=== PATIENT | male | born 1980 | race Caucasian/White ===

== ENCOUNTER → 2018-05-02 17:43 | Outpatient (CLI) | payer MEDICARE, SELFPAY ==
--- NOTE | 2018-05-02 17:57 | RAD_ITS ---
STUDY: X-RAY - LUMBAR SPINE REASON FOR EXAM: Male, 37 years old. Evaluate spinal stimulator. TECHNIQUE: 3 view(s) of the lumbar spine were obtained. COMPARISON: None FINDINGS: Normal lumbar lordosis. There is no substantial scoliosis. There is a normal alignment of the vertebrae. Normal vertebral bodies and endplates. Normal disc space heights. There is no demonstrated fracture. An epidural stimulator is seen terminating in the lower thoracic spine. No discontinuities of the leads. The soft tissue structures are unremarkable. RAD/Lumbar Spine 2 or 3 Views IMPRESSION: Normal x-ray examination of the lumbar spine. Epidural stimulator as described. Electronically Signed: Adrien Wells MD at 21:03 EDT , Service support ,
== END ==
PROVIDERS: Family Provider Family Medicine; PCP Family Medicine; Visit Provider Anesthesiology Pain Medicine
DX: M54.9 Dorsalgia, unspecified (principal); Z96.9 Presence of functional implant, unspecified
CPT/HCPCS: 72100

== ENCOUNTER → 2019-01-26 12:55 | Outpatient (CLI) | payer MEDICARE, MEDICAID, SELFPAY ==
--- NOTE | 2019-01-26 12:57 | RAD_ITS ---
STUDY: X-RAY - LEFT SHOULDER REASON FOR EXAM: Male, 38 years old. Pain. TECHNIQUE: 3 view(s) of the shoulder. COMPARISON: None. FINDINGS: Normal glenohumeral articulation. Normal acromioclavicular joint. Normal acromion. Normal humeral head and visualized proximal humerus. The soft tissue structures are unremarkable. Normal visualized pulmonary apex. RAD/Shoulder min 2 Views IMPRESSION: Normal x-ray examination of the shoulder. Electronically Signed: Shmuel Avila MD at 16:18 EDT , Service support ,
--- NOTE | 2019-01-26 12:57 | RAD_ITS ---
STUDY: X-RAY - LEFT ELBOW REASON FOR EXAM: Male, 38 years old. Joint pain, unable to move arm TECHNIQUE: 3 view(s) of the elbow. Exam limited due to patient mobility factors. COMPARISON: None. FINDINGS: Normal visualized humerus, radius and ulna. Normal radiocapitellar and ulnotrochlear articulations. The soft tissue structures are unremarkable. RAD/Elbow min 3 Views IMPRESSION: No fracture or malalignment. Electronically Signed: Franck Smith MD at 12:59 EDT , Service support ,
== END ==
PROVIDERS: Family Provider Family Medicine; PCP Family Medicine; Referring Provider Orthopaedic Surgery; Visit Provider Orthopaedic Surgery
DX: R52 Pain, unspecified (principal)
CPT/HCPCS: 73030; 73080

== ENCOUNTER 2019-02-28 12:31 | Emergency (ER) | payer MEDICARE, MEDICAID, SELFPAY ==
[2019-02-28 12:32] VITALS: PULSE 67; RESP 16; TEMP 36.9; O2SAT 97; BMI 33.1
--- NOTE | 2019-02-28 12:36 | RAD_ITS ---
STUDY: X-RAY CHEST REASON FOR EXAM: Male, 38 years old. Chest pain. TECHNIQUE: Single AP portable view of the chest. COMPARISON: None. FINDINGS: EKG electrodes are seen. Electrodes from a TENS unit are seen at the T6-T7 level. The lungs are clear and expanded. There is no demonstrated pleural abnormality. Normal size heart. Normal mediastinum and rodrigo. Normal visualized pulmonary arteries. Normal visualized aortic arch and descending thoracic aorta. Normal visualized thoracic spine. Normal visualized ribs, clavicles, and shoulders. There is no demonstrated abnormality of the visualized soft tissue structures of the upper abdomen. RAD/Chest 1 View (Portable) IMPRESSION: No acute abnormality is seen. Electronically Signed: Luke Goncalves, at 13:44 EDT , Service support ,
--- NOTE | 2019-02-28 12:48 | EKG12_ITS ---
Test Reason : CP Blood Pressure : / mmHG Vent. Rate : 072 BPM Atrial Rate : 072 BPM P-R Int : 146 ms QRS Dur : 108 ms QT Int : 410 ms P-R-T Axes : 048 -03 041 degrees QTc Int : 448 ms Normal sinus rhythm Poor R-Wave Progression Confirmed by ERNIE SILVA, JEREMIAS ([id number]), assignment desk editor VALENTINA ALONZO ([id number]) on 03/02/2019 1:28:02 PM Referred By: Alvin Rhodes Confirmed By:JEREMIAS KLEIN MD
[2019-02-28 13:01] LABS: Absolute Lymphocyte Count 2.58 X10^3/ul (0.83-4.51); Absolute Neutrophil Count 8.9 X10^3/uL (2.0-7.7); Basophil# 0.04 X10^3/uL; Basophil% 0.3 % (0-1); Eosinophil# 0.06 X10^3/uL; Eosinophils% 0.5 % (0-5); Hematocrit 51.6 % (40-54); Hemoglobin 17.6 g/dl (13.0-16.5); Lymphocyte # 2.58 X10^3/ul (4.0); Lymphocyte % 20.2 % (19-41); Mean Corp Hgb Conc 34.1 g/gl (32-36); Mean Corpuscular Hgb 31.4 pg (27.0-32.0); Mean Corpuscular Volume 92.1 fL (80-94); Monocyte# 0.86 X10^3/uL; Monocyte% 6.7 % (0-10); Neutrophil # 8.91 X10^3/uL (2.7-7.7); Neutrophil % 69.6 % (47-70); Platelet Count 254 K/mm3 (150-450); RBC Distribution Width CV 13.2 % (11.6-14.6); RBC Distribution Width SD 44.2 fl (35.1-43.9); White Blood Count 12.8 K/mm3 (4.4-11.0)
[2019-02-28 13:02] LABS: POSITIVE COUNT YES; POSITIVE DIFFERENTIAL NO; POSITIVE MORPHOLOGY YES
[2019-02-28 13:17] LABS: Anion Gap 7 (5-15); BUN 15 mg/dL (7-18); BUN/Creat Ratio 16.4 RATIO (10-20); Chloride 110 mmol/L (98-107); Creatinine, Serum 0.91 mg/dL (0.70-1.30); EST Glomerular Filtration Rate 98 mL/min (>60); Est Glom Filt Rate - Afr Amer 119 mL/min (>60); Estimated Creatinine Clearance 123.17 ml/min; Glucose 95 mg/dL (74-106); Potassium 3.5 mmol/L (3.5-5.1); Sodium Level 141 mmol/L (136-145)
[2019-02-28] MEDS: Acetaminophen 500 MG Tablet 1000 MG PO (13:17)
[2019-02-28] MEDS: 0.9% Normal Saline 1,000 ML 1000 ML IV (13:17)
[2019-02-28 13:28] VITALS: BP 119/79; PULSE 66; RESP 16; O2SAT 96
--- NOTE | 2019-02-28 13:50 | ED.DCSUM_ITS ---
- ER Visit Summary Date of Service: 02/28/19 Chief Complaint: Chest pain History of Present Illness: The patient is a [address] Astorga. Reports he has left-sided chest pain began 3 days ago.'s an aching continuous pain is 10-10 at worst 9-10 currently. Is worsened by nothing including exertion, movement, or breathing. Is also relieved by nothing. He denies any associated nausea, vomiting, diaphoresis, shortness of breath. Patient reports that he was in [facility] emergency department 3 days ago and had a positive d- dimer. CT of his chest that was negative. Patient denies any fever or chills. He has had a nonproductive cough for the past 2 weeks. Physical Examination: Vitals: Stable. Afebrile. General: Well-nourished and well-developed. Head: Normocephalic atraumatic. Neck: Supple, no lymphadenopathy. No JVD. Nontender. Cardiovascular: Regular rate and rhythm. No murmurs. Respiratory: No respiratory distress. Clear to auscultation bilaterally. Chest is nontender. Abdominal: Soft, nontender, nondistended, normal bowel sounds. No guarding, rebound, or peritoneal signs. Back: Nontender. Extremities: Nontender, no edema. Skin: Normal color, no rash. Neurologic: Alert and oriented ?3. Cranial nerves II through XII are intact. Normal strength and sensation. Psych: Normal affect. Test Results: EKG is sinus at [address] changes. There is no old EKG for comparison. Troponin is negative despite 2 days of constant pain. Chem-7 is more for chloride of 110. CBC shows a white count of 12.8 with a hemoglobin of 17.6. Chest x-ray shows no acute disease. Emergency Department Course and Treatment: We did get the records from his visit [address] of his chest was negative. He is resting comfortably. He refused pain medications. Treatment Plan: Patient will be discharged with symptomatic care for his URI. Instructed to follow-up his primary care physician in 1 week if not improving. Return to the emergency department for any worsening symptoms. Disposition: To home in improved and stable condition. Impression: 1. URI. 2. Atypical chest pain. This note was generated with [employer] software. It may contain incorrect words, spelling, and punctuation that were not noted in review of the chart prior to signing ED Disposition - Plan for ED Patient: Disposition: Home or Assisted Living Instructions: ED Upper Resp Infec No Abx Tx, ED Chest Pain Atypical Unkn Cause Referrals: Felicia Pendleton [Primary Care Provider] - 1 Week if not improving
[2019-02-28 13:55] VITALS: BP 121/81; PULSE 68; RESP 16; O2SAT 98
[2019-03-02 09:07] LABS: Pathologist Review Reviewed
== END 2019-02-28 14:05 | disposition home or self-care (01) ==
LOC: ED 13:03
PROVIDERS: Emergency Provider Emergency Medicine; Family Provider Family Medicine; PCP Family Medicine
DX: J06.9 Acute upper respiratory infection, unspecified (principal); R07.89 Other chest pain; I10 Essential (primary) hypertension; E78.00 Pure hypercholesterolemia, unspecified; Z86.73 Personal history of transient ischemic attack (TIA), and cerebral infarction without residual deficits; Z79.82 Long term (current) use of aspirin; Z79.899 Other long term (current) drug therapy; M54.2 Cervicalgia
CPT/HCPCS: 71045; 72040; 80048; 84484; 85025; 93005; 96360; 99285; J7030; A4216

== ENCOUNTER → 2019-02-28 | Outpatient (CLI) | payer MEDICARE, MEDICAID, SELFPAY ==
--- NOTE | 2019-02-28 12:04 | RAD_ITS ---
STUDY: X-RAY - CERVICAL SPINE REASON FOR EXAM: Rudimentary bilateral cervical ribs., 38 years old. Neck pain and burning sensation left side of neck. History of prior stroke. TECHNIQUE: 3 view(s) of the cervical spine were obtained. COMPARISON: None FINDINGS: Normal anterior atlantoaxial articulation. Normal odontoid process. Normal cervical lordosis. Normal vertebral bodies and endplates. Normal disc space heights. Normal visualized intervertebral neuroforamina. Rudimentary bilateral cervical ribs. The soft tissue structures are unremarkable. RAD/Cerv Spine 2 or 3 Views IMPRESSION: Normal x-ray examination of the visualized cervical spine. Rudimentary bilateral cervical ribs. Electronically Signed: Rahul Rosen MD at 7:40 EDT , Service support ,
== END | disposition home or self-care (01) ==
PROVIDERS: Family Provider Family Medicine; PCP Family Medicine; Referring Provider Anesthesiology Pain Medicine; Visit Provider Anesthesiology Pain Medicine
DX: M54.2 Cervicalgia (principal)
CPT/HCPCS: 72040

== ENCOUNTER → 2019-09-06 14:09 | Outpatient (CLI) | payer MEDICARE, MEDICAID, SELFPAY ==
--- NOTE | 2019-09-06 14:14 | RAD_ITS ---
STUDY: X-RAY - CERVICAL SPINE REASON FOR EXAM: Male, 38 years old. TECHNIQUE: 6 view(s) of the cervical spine were obtained. COMPARISON: None FINDINGS: Normal anterior atlantoaxial articulation. Normal odontoid process. Normal cervical lordosis. Normal vertebral bodies and endplates. Normal disc space heights. Normal visualized intervertebral neuroforamina. The soft tissue structures are unremarkable. RAD/Cerv Spine 2 or 3 Views IMPRESSION: Normal x-ray examination of the visualized cervical spine. Electronically Signed: Tati Mejia, at 16:24 EST Tel , Service support ,
== END ==
PROVIDERS: Family Provider Family Medicine; PCP Family Medicine; Referring Provider Anesthesiology Pain Medicine; Visit Provider Anesthesiology Pain Medicine
DX: M54.2 Cervicalgia (principal)
CPT/HCPCS: 72040

== ENCOUNTER → 2019-12-14 10:02 | Outpatient (CLI) | payer MEDICARE, MEDICAID, SELFPAY ==
[2019-12-14 09:52] VITALS: BMI 33.1
--- NOTE | 2019-12-14 10:03 | RAD_ITS ---
HISTORY: shoulder pain, possible rotator cuff injury, patient has had a stroke Exam:Left Shoulder COMPARISON: None FINDINGS: # of images incl. paperwork: 3 XR Shoulder Min 2 Views: The humeral head is well-positioned within the glenoid fossa. No fracture or subluxation. The acromioclavicular joint is slight elevation of the clavicle relative to the acromion was present on the previous study as well. The coracoid clavicular distance remains normal. Epidural stimulation leads remain.. The adjacent chest is unremarkable. RAD/Shoulder min 2 Views IMPRESSION: No evidence of acute injury to the left shoulder. at 0544 Reported and signed by: Mil Mehta MD Electronically Signed: Mil Mehta MD at 5:43 EST Tel , Service support ,
== END ==
PROVIDERS: PCP Family Medicine; Referring Provider Physician Assistant; Visit Provider Physician Assistant
DX: M25.612 Stiffness of left shoulder, not elsewhere classified (principal)
CPT/HCPCS: 73030

== ENCOUNTER → 2019-12-29 08:43 | Outpatient (CLI) | payer MEDICARE, MEDICAID, SELFPAY ==
[2019-12-14 09:52] VITALS: BMI 33.1
--- NOTE | 2019-12-29 08:44 | MRI_ITS ---
STUDY: MRI LEFT SHOULDER REASON FOR EXAM: Male, 39 years old. frequent falls onto shoulder decreased rom TECHNIQUE: Standardized fat and water weighted pulse sequences were obtained in all 3 orthogonal planes. COMPARISON: X-ray 12/14/2019 FINDINGS: Normal supraspinatus tendon. Normal infraspinatus tendon. Normal subscapularis tendon. Normal teres minor tendon. Normal supraspinatus muscle. Normal infraspinatus muscle. Normal subscapularis muscle. Normal teres minor muscle. Normal glenohumeral articulation. Normal humeral head and visualized proximal humerus. Normal biceps labral complex. Normal intracapsular long biceps tendon. Normal labrum. Normal capsulo- ligamentous complex. Normal rotator interval. Normal acromioclavicular articulation. There is a Type II morphology (curved), with a neutral orientation. There is no subacromial-subdeltoid bursal fluid. There is thickening of the coracohumeral ligament with low-signal material partially effacing the subcoracoid fat triangle, compatible with adhesive capsulitis in the rotator cuff interval. Normal quadrilateral space. Normal axillary space. Normal deltoid muscle. Normal trapezius muscle. MRI/Upper Ext Joint Only(Routine) IMPRESSION: Suspect clinical adhesive capsulitis. Electronically Signed: Daniel Snyder MD at 13:15 EDT Tel , Service support ,
== END ==
PROVIDERS: PCP Family Medicine; Referring Provider Physician Assistant; Visit Provider Physician Assistant
DX: M75.02 Adhesive capsulitis of left shoulder (principal); M25.512 Pain in left shoulder
CPT/HCPCS: 73221

== ENCOUNTER 2020-04-11 10:12 | Day surgery (SDC) | payer MEDICARE, MEDICAID, SELFPAY ==
[2020-03-11 09:26] VITALS: BMI 33.1
[2020-04-11 10:34] VITALS: BP 117/78; PULSE 66; RESP 16; TEMP 36.7; O2SAT 97; BMI 32.6
[2020-04-11] MEDS: Lactated Ringers 1,000 ML 100 ML IV ×2 (10:55→14:01)
[2020-04-11] MEDS: Cefazolin 2 GM in 0.9% Normal Saline 100 ML IV (12:41)
--- NOTE | 2020-04-11 12:54 | DCINST_ITS ---
Discharge Diet: No Restrictions - May remove dressings in 4 days and apply Band- Aids to incision sites, may remove sling to do pendulum exercises as much as possible, stop sling when comfortable, may get incision wet in shower after 4 days, follow-up in 2 weeks or sooner if other issues arise, resume PT raymond Discharge Activity: May Not Drive May shower in (days): 1 Ice area for (Minutes): 20 - Every hour while awake. Weight Bearing Status: Weight bearing as tolerated Keep extremity elevated above heart level: Operative Extremity Call your doctor if your incision/area has: Continuous Slow Oozing, Sudden In creased Bleeding, Increased Pain/ Swelling, Increased Redness, Foul Smelling Discharge Call your doctor if you observe: Fever of 101 or Higher, Coldness, Increased Pain, Numbness or Tingling, Change in Color, Calf discomfort Allergies/Adverse Reactions: Allergies lithium Allergy (Verified 04/03/20 11:47) Swelling Medications to take at Discharge Aspirin [Aspirin, Baby] 81 mg PO DAILY@0800 02/28/19 Atorvastatin Calcium 10 mg PO DAILY 02/28/19 Cetirizine HCl [Zyrtec] 10 mg PO DAILY 02/28/19 Gabapentin [Neurontin] 300 mg PO TID 02/28/19 Imitrex 50 mg PO PRN PRN 02/28/19 Lisinopril [Zestril] 10 mg PO DAILY 02/28/19 Pantoprazole Sodium [Protonix] 40 mg PO BID 02/28/19 Tizanidine HCl 4 mg PO 4X/DAY 02/28/19 Topiramate 100 mg PO BID 02/28/19 Verapamil HCl [Verapamil Sr] 120 mg PO DAILY 02/28/19 linaclotide 145 mcg capsule 145 mcg PO DAILY 12/14/19 hydrochlorothiazide 25 mg tablet 25 mg PO DAILY 03/11/20 Aripiprazole [Abilify] 5 mg PO DAILY 04/03/20 Escitalopram Oxalate [Lexapro] 20 mg PO DAILY 04/03/20 Melatonin 15 mg PO QHS 04/03/20 Oxybutynin [Ditropan] 15 mg PO DAILY 04/03/20 Ranolazine [Ranolazine ER] 500 mg PO BID 04/03/20 Vits A,C,E/Lutein/Minerals [Healthy Eyes Tablet] 1 ea PO DAILY 04/03/20 Oxycodone HCl/Acetaminophen [Percocet 5/325] 1 - 2 tab PO Q6H PRN PRN 5 Days #28 tab 04/11/20 The following prescriptions were given: Oxycodone HCl/Acetaminophen [Percocet 5/325] 1 - 2 tab PO Q6H PRN PRN 5 Days #28 tab PRN Reason: Pain Transmission Status: Received by [employer] [id number] Primary Care Physician: Felicia Pendlteon MD [Primary Care Provider] - Test Results: Test results from this visit will be discussed in further detail at your follow- up appointment, if applicable. Please Follow Up With: Magnolia Giles, DO - [phone]
--- NOTE | 2020-04-11 12:54 | PCM.OPRPT ---
Report of Operation Date of Procedure: 04/10/20 Pre-Operative Diagnosis: LEFT SHOULDER FROZEN SHOULDER, SUBACROMIAL IMPINGMENT SYNDROME Post-Operative Diagnosis: SAME Surgery/Procedure Performed:: Left shoulder manipulation under anesthesia, extensive synovectomy, adhesion release intra-articularly, biceps tenotomy, subacromial decompression acromioplasty analytical tech: Branden Larson Type of Anesthesia:: General/Regional Anesthesiologist: John Stokes Estimated Blood Loss (mL): min Fluids Replaced: 700CC LR Description of Procedure: Preop note Patient is a 39-year-old male long-term known to our clinic patient has a had a stroke on the left side and is having increasing functional inability to raise his left arm recalcitrant to nonoperative treatment options. MRI confirms frozen shoulder. We discussed risk benefits and alternatives surgery surgery excuse me. Risk include but not limited to blood loss, blood clot, infection, neurovascular, failure procedure, loss of life and loss of limb. Patient is aware and like to proceed with left shoulder manipulation under anesthesia lysis of adhesions biceps tenotomy subacromial decompression acromioplasty. Operative note Patient seen and examined preoperative holding area. Left shoulder was marked. We evaluated the patient ROM after anesthesia initiated. Flexion prior to SREE was 90, after 130Patient received a preop regional block. Patient brought to the operating room placed supine on the operating table. Signed, anesthesia, antibiotics were administered. Performed a timeout. We then manipulated the left shoulder under after under standard technique there is audible cracking signs in all planes. We then placed patient in beachchair positioning [facility] through beachchair position we did recheck his blood pressure which was stable throughout. We then prepped and draped the left arm in standard technique. Marked out our bony landmarks for portal placement. We then insufflated the glenohumeral joint for the posterior aspect. We had good return. We created a posterior portal with an 11 blade. Begin our diagnostic arthroscopy. He had adhesions throughout anteriorly these were released with combination of a shaver and ablator we released open up his rotator interval. We also release his biceps tendon as he was having was considerable biceps tendinitis time preoperatively so we did release his biceps tendon at the same time. His rotator cuff was intact he had obvious inferior capsular scar tissue as well. We inserted a shaver and also resected back some synovitis some of the scar tissue posteriorly as well. And he had some scar tissue adherent to his humeral head which was released as well. We then irrigate the shoulder with copious amounts of sterile saline coagulate any bleeders we did encounter. The moved to the subacromial space. Created a lateral portal under direct visualization. There was extensive bursitis throughout. We resected this back with a combination of a shaver and ablator. He had a bump on the acromion which was shaved back to and we co-plane the lateral aspect of the anterolateral aspect of the acromion with a ethan. We again resected the entire bursa and extending to the posterior recess. Irrigated the subacromial space with copious amounts of sterile saline. Sterile dressings were applied after the portals were closed with interrupted 4-0 nylon stitches. Patient tolerated the procedure well no complications transferred recovery room in stable condition Postoperative note Use arm as tolerated Patient has physical therapy appointment on Wednesday discussed with dad need to do PT discussed that we will give images to patient in 2 weeks Call with increased pain numbness tingling or further issues arise Pain medication at Hospital pharmacy Dragon disclaimer this note was generated with [employer] dictation software. It may contain incorrect words, spelling, and punctuation that were not noted in checking the note before signing.
--- NOTE | 2020-04-11 12:55 | PCM.HP.BLA ---
History and Physical I have re-examined the patient. There are no clinical changes since date of exam. Intake Intake Visit Reasons: Left shoulder Is patient in pain?: Yes Allergies lithium Allergy (Verified 02/28/19 12:37) Swelling Medications Aspirin [Aspirin, Baby] 81 mg PO DAILY@0800 02/28/19 [History Confirmed 03/11/20] Atorvastatin Calcium 10 mg PO DAILY 02/28/19 [History Confirmed 03/11/20] Cetirizine HCl [Zyrtec] 10 mg PO DAILY 02/28/19 [History Confirmed 03/11/20] Gabapentin [Neurontin] 300 mg PO BID 02/28/19 [History Confirmed 03/11/20] Imitrex 50 mg PO PRN PRN 02/28/19 [History Confirmed 03/11/20] Lisinopril [Zestril] 10 mg PO DAILY 02/28/19 [History Confirmed 03/11/20] Pantoprazole Sodium [Protonix] 40 mg PO BID 02/28/19 [History Confirmed 03/11/20] Paroxetine HCl 20 mg PO DAILY 02/28/19 [History Confirmed 03/11/20] Tizanidine HCl 4 mg PO 4X/DAY 02/28/19 [History Confirmed 03/11/20] Topiramate 100 mg PO BID 02/28/19 [History Confirmed 03/11/20] Verapamil HCl [Verapamil Sr] 120 mg PO QHS 02/28/19 [History Confirmed 03/11/20] linaclotide 145 mcg capsule 145 mcg PO DAILY 12/14/19 [History Confirmed 03/11/20] hydrochlorothiazide 25 mg tablet PO 03/11/20 [History Confirmed 03/11/20] PFS Social History (Updated 03/11/20 @ 12:54 by NANCY Gongora) Smoking Status: Never smoker HPI Left shoulder: Details: Parts of this documentation were recorded by a scribe, this documentation accurately reflects the service provided and the decisions made by me, NANCY Gongora 03/11/20 [id number]. COOPER CROCKETT is a 39 year old M here today for left shoulder pain and stiffness that has been increasing since his stroke in 2011. he states that he has no active rom, passively he has less than 90 in flexion and abduction. He has no active rom of the left hand or fingers but can passively move the thumb, index and middle fingers. He has completed PT that was helpful at the time. He has an MRI here for review and his last injection was 01/2019. ROS Musc Reports as per HPI, Reports abnormal walking, Reports joint pain, Reports limited joint movement, Reports stiffness Skin/Breast Reports as per HPI Neuro Yes abnormal walking, Yes abnormal movements, Yes abnormal speech, Yes lack of coordination Details: secondary to stroke Ortho Exam Left Shoulder Skin/Wound: No ecchymosis, No erythema, No swelling Testing: Yes Hawkin's, Yes Neer's, No Speed's, Yes TTP Biceps, No TTP AC Joint, No AROM-Forward Elevation 0-180 (approx 90), No AROM-External Rotation at side 0-60 (approx 10 degrees), No Sulcus Sign SHOULDER: No acute abnormalities on inspection of the left shoulder. Patient has some tenderness on the anterior shoulder with palpation. Patient does have evident limited range of motion most notably with internal/external rotation and abduction. He gets approximately 75 to 80 degrees of abduction and only approximately 5 to 10 degrees of external rotation. He is unable to really do any type of internal rotation to even get to the hip. There is evident weakness against resistance as well as some evidence of impingement and biceps involvement. Assessment & Plan Problems 1. Adhesive capsulitis of left shoulder M75.02 2. Biceps tendinitis of left shoulder M75.22 Plan Patient presents to the office with continued left shoulder pain. Patient has had pain/problems of the shoulder for over a year now. Patient has done physical therapy and has had multiple injections into the shoulder. He states that at this time the injections have not really helped the shoulder at all nor did physical therapy. Patient did have an MRI showing some evidence of this of capsulitis. There is also noted fluid around the biceps indicating a tendinopathy. At this time patient has failed conservative treatment with oral anti-inflammatories, injection into the shoulder, as well as physical therapy. He states that he really would like to have this fixed as he was able to get himself dressed and use the shoulder way more and now has difficulties with those things. We did discuss patient's medical history and how that could play a part and complication risks. We discussed risks and benefits of any type of surgical procedure which patient understands. All of his questions as well as his father's questions were answered and consent was signed in office today. I did discuss that we will have to have a further discussion with the surgeon to review his MRI and make sure that surgery is the next best step for him. We will contact him once I have consulted with her in order to set up a date. He will be contacted by surgery department for preanesthesia testing. Patient was given antimicrobial scrub to be used the night before the morning of surgery from the neck into the armpit and down to the fingertips. Patient be notified by surgery the day before his surgery of the time. He can notify our office if he has any further questions or concerns in the meantime. This note was generated with [employer] dictation software. It may contain incorrect words, spelling, and punctuation that were not noted in checking the note before signing. Coding Level of Care Code Off vis,est,level 3 Diagnoses Adhesive capsulitis of left shoulder M75.02 Biceps tendinitis of left shoulder M75.22 Procedure Criteria Procedure Type: Elective COVID Risk Discussion: The surgeon/proceduralist and patient have discussed in detail the risk of exposure to and/or potential harm posed by the COVID-19 virus with having a surgery/procedure at this time versus the risk of delaying the surgery/procedure. It is not possible to know either the risk of delaying the surgery or procedure or chance of getting an infection with perfect accuracy, but a joint decision was made between the patient and the surgeon/proceduralist to proceed at this time with the scheduled surgery/procedure as indicated on the consent form.
[2020-04-11] MEDS: Epinephrine (1 mg/ml) 1 MG/ML VIAL (13:32)
[2020-04-11] MEDS: Mupirocin Ointment 22gm Tube 1 APPLIC (14:00)
[2020-04-11 14:19] VITALS: BP 117/78; BP 141/96; PULSE 100; RESP 16; TEMP 36.6; O2SAT 98
[2020-04-11 14:30] VITALS: BP 117/78; BP 145/93; PULSE 96; RESP 16; O2SAT 95
[2020-04-11 14:45] VITALS: BP 117/78; BP 133/86; PULSE 86; RESP 16; O2SAT 95
[2020-04-11] MEDS: HYDROcodone Bitartrate/Apap 5/325 Tablet PO (14:57)
[2020-04-11 15:00] VITALS: BP 117/78; BP 129/85; PULSE 92; RESP 16; TEMP 36.3; O2SAT 94
[2020-04-11 15:39] VITALS: BP 117/78; BP 133/76; PULSE 84; RESP 16; TEMP 36.5; O2SAT 96
== END 2020-04-11 16:00 | disposition home or self-care (01) ==
LOC: SDC 10:14 → AC 10:15
PROVIDERS: PCP Family Medicine; Referring Provider Orthopaedic Surgery; Visit Provider Orthopaedic Surgery
PROC: (CPT 29827; principal; 2020-04-11 12:40)
DX: M75.02 Adhesive capsulitis of left shoulder (principal); M75.22 Bicipital tendinitis, left shoulder; Z11.59 Encounter for screening for other viral diseases; I10 Essential (primary) hypertension; K21.9 Gastro-esophageal reflux disease without esophagitis; F41.9 Anxiety disorder, unspecified; F32.9 Major depressive disorder, single episode, unspecified; Z86.73 Personal history of transient ischemic attack (TIA), and cerebral infarction without residual deficits; Z87.442 Personal history of urinary calculi; Z79.82 Long term (current) use of aspirin; Z79.899 Other long term (current) drug therapy
CPT/HCPCS: 29823; 29828; 87635; G2023; J7120; J2405; U0003

== ENCOUNTER 2020-05-06 09:30 | Outpatient (RCR) | payer MEDICARE, MEDICAID, SELFPAY ==
--- NOTE | 2020-04-15 10:59 | HP.PTEVAL_ITS ---
Patient's Visit Information COOPER CROCKETT Jr. is a 39 year old M referred to Physical Therapy by Dr. Magnolia Giles DO with a diagnosis of L SHLD ADHESIVE CAPSULITIS AND TENDONITIS. Date of Evaluation: 04/15/20 Physical Therapist: Wilma Sorensen PT, Cert MDT - Visit Plan Frequency: 3x /Week Duration: 6 Weeks Plan: *CHECK SURGICAL SITE FOR SIGNS OF INFECTION*. LEFT UE ROM, STRETCHING AND STRENGTHENING IN COMFORTABLE ROM ONLY. - Subjective Diagnosis: S/P L SHLD SURGERY 04/11/2020: Left shoulder manipulation under anesthesia, extensive synovectomy, adhesion release intra-articularly, biceps tenotomy, subacromial decompression acromioplasty. Work/Leisure: UNEMPLOYEED. Disability: YES. 20+ YEARS. Present symptoms: PATIENT REPORTS SURGERY HAS MADE HIS SHOULDER A LOT BETTER. HE REPORTS SEVERE LEFT SHLD PAIN BEFORE THE S URGERY AND HE DENIES PAIN NOW. HE REPORTS THAT HIS SHOULDER IS A LOT LOOSER NOW AND IT ISN'T STUCK TO HIS BODY LIKE IT WAS BEFORE SURGERY. Present since: PATIENT REPORTS THAT HIS LEFT SHOULDER FROZE UP WHEN HE HAD HIS STROKE IN 2011 AND THE PAIN WAS JUST GETTING WORSE AND WORSE. Pain Scale: NO PAIN - I'VE BEEN HAPPY GO [place] WITH NO PAIN. Commenced as a result of: STROKE 2011. Symptoms at onset: LEFT FROZEN SHOULDER. Previous history/Previous treatment: PATIENT REPORTS HAVING PT AFTER HIS STOKE THAT HELPED AT THE TIME. SEVERAL INJECTIONS THAT DIDN'T HELP. This episode: SURGERY. Dizziness: YES. Tinnitis: NO. Nausea: YES. Shortness of Breath: YES. Difficulty Swollowing: SOMETIMES. Gait: PATIENT REPORTS A HISTORY OF FALLS. LAST FALL WAS ABOUT 2 WEEKS AGO WHEN HE WAS TRYING TO MOVE HIS SCOOTER AND HE FELL BACKWARDS. USES SCOOTER TO GO TO THE STORE, DRUG M[facility], RESTRAUNTS...PATIENT REPORTS HE WALKS INDEP'LY AND GOES SLOW TO TRY TO AVOID FALLS. PATIENT REPORTS HE DOES NOT FALL VERY OFTEN AT ALL BECAUSE HE IS VERY CAUTIOUS. WEARS HIS LEFT AFO ALL THE TIME. Accidents: NONE RECENT. Unexplained weight loss: NO. Imaging: MRI OF LEFT SHOULDER BEFORE SURGERY. PMH/Recent major surgery: STROKE IN 2012 AT AGE 31 - UNKNOWN CAUSE. HTN. HIGH CHOLESTEROL. OTHER: PATIENT REPORTS HE WAS TREATED VERY POORLY IN PHYSICAL THERAPY AFTER HIS STROKE. CURRENTLY LIVES WITH HIS DAD AND STEP MOM. HE REPORTS SOMEONE IS ALWAYS HOME WITH HIM. PATIENT REPORTS HE WOULD BE HAPPY IF HE COULD GET HIS SHOULDER MOVING EVEN JUST A LITTLE BIT. REPORTS HE HAS BEEN TOLD HE WON'T GET MUCH IF ANY MVMT BACK BECAUSE HE HASN'T BEEN ABLE TO USE IT SINCE THE STROKE 8 YEARS AGO. HE WANTS TO GIVE IT A TRY SINCE IT FEELS LOOSER FROM THE SURGERY. HE REPORTS HIS HIS WRIST IS EVEN LOOSER NOW SINCE THE SURGERY THAN IT HAS BEEN SINCE THE STROKE. - Objective THIS PATIENT AMBULATES INDEP'LY INTO PT WITHOUT ANY ASSISTIVE DEVICES OR LOSS OF BALANCE. HE HAS DECREASED CADANCE AND A STEP TO TYPE GAIT PATTERN WITH DECREASED WEIGHTBEARING TIME ON HIS LLE. HE IS WEARING AN AFO ON HIS LLE. HE DOES NOT HAVE ANY ACTIVE ROM OF THE LEFT UE BUT IS EXCITED TO REPORT HIS PAIN IS GONE AND HE CAN DO MUCH MORE PASSIVE ROM WITH THE LEFT UE USING HIS RIGHT UE NOW WITHOUT PAIN. HE DOES HOWEVER GET PAIN AT THE END OF THE AVAILABLE PASSIVE ROM WITH SELF ROM AND THERAPIST TESTING TODAY. HE HAS BANDAGES COVERING THE SURGICAL SITES. PATIENT PLANS TO GO TO DR. GILES'S OFFICE AFTER PT TODAY TO FIND OUT WHEN HIS FOLLOW UP WITH HER IS. THIS PATIENT MIGHT ALSO BENEFIT FROM AN OT CONSULT AND HIS IS GOING TO INQUIRE ABOUT THAT TODAY ALSO. UPON EXAM, PATIENT HAS LEFT SHLD MILD SWELLING. AGAIN - PATIENT HAS NO ACTIVE ROM OF THE LEFT UE BUT UPON EXAM TODAY HE HAS THE FOLLOWING PROM IN SITTING: SHOULDER FLEXION 80 DEG, ABD 68 DEG, ER ~15 DEG. ELBOW 46 DEG TO 132 DEG (RESTING POSITION IS APPROX 90 DEG), ~50% FOREARM PRONATION, ~75% WRIST FLEX, ~10% WRIST EXT. REVIEWED HEP: PENDULUM CW AND CCW, PASSIVE SHLD FLEX, ABD, PASSIVE ELBOW FLEX/EXT, PASSIVE FOREARM PRONATION/SUPINATION AND WRIST FLEX/EXT WITH ASSIST FROM RIGHT UE. PATIENT FOLLOWS COMMANDS WELL AND RIGHT UE AND RIGHT LE ROM/STRENGTH ARE WFL. PATIENT IS PLEASANT AND COOPERATIVE TO WORK WITH. - Goals Goal 1:: INCREASE FUNCTIONAL ROM OF LEFT UE Goal Time Frame: 4-6 Weeks Goal 2:: PATIENT WILL BE INDEP WITH A HEP FOR CONTINUED IMRPOVEMENT ONCE FORMAL PHYSICAL THERAPY CONCLUDES. Goal Time Frame: 4-6 Weeks - Anticipated Interventions Patient/Client Instruction: Educate patient on: Condition, Plan of Care, Risk Factors, Benefits of Fitness Program For the Purpose of:: To improve self management Therapeutic Exercise to Include: Strength training, Postural training, Flexibilty training, Neuromotor development, Passive ROM, Active ROM, Scapular Strength/Stabilization For the Purpose of:: To increase ROM, To improve muscle performance and motor function, To improve ability of physical actions for home/community/work/leisure Manual Therapy Techniques to Include: Passive ROM For the Purpose of:: To increase ROM Thank you for the opportunity to evaluate your patient. For Medicare and Medicare HMO plans, please review the plan of care and approve it. It will need to be FAXED BACK to us at [phone] for Medicare purposes. For Medicare only, by signing this I certify the plan of care. Please let me know if there are questions or concerns regarding this plan of care. Physician Signatur e: Date:
--- NOTE | 2020-04-24 16:41 | HP.OTEVAL_ITS ---
Patient's Visit Information COOPER CROCKETT Jr. is a 39 year old M, referred to Occupational Therapy by Dr. Magnolia Giles DO, with a diagnosis of B hand contracture. Date of Evaluation: 04/24/20 Occupational Therapist: Reina Vanessa - Subjective Pt arrived with girlfriend this date. Pt reports he would like to be able to o pen his L hand again. Pt shared he used to be able to open his hand on his own but didn't say when. Arrived with elbow extension brace for LUE. - ADLs Comments: Wears pullover/looser clothing and elastic waist shorts, slip on shoes Fasteners: Tie shoes, Buttons, Zippers, Snaps Comments: Unable to do any of these tasks- wears slip on shoes, elastic band shorts Eating: Cut food Comments: Uses R hand- no concerns with eating- needs food cut up Comments: Shower chair and hand held shower head Comments: 2 grab bars Comments: uses disposable razor Kitchen: Chop with knife, Peel fruits & vegetables, Open jars, Open bottle caps Comments: uses R hand for each of these tasks- unable with L hand Comments: Uses R hand to complete Comments: Mows yard Comments: Uses R hand Comments: Pt is R hand dominant. - Pain L thumb 6 Pain Intensity Range: 7 - Objective Assessed pt's resting hand position of LUE at thumb joint, and IF of MCP, PIP, DIP joints, and pt's PROM of LUE. See below for details. Assessed skin integrity and is currently clean and no open sores on palm. - ROM MP: L hand- 55 degrees (at rest) IP: L hand- 90 degrees (at rest) MP: LIF flex 80 degrees (at rest) PIP: LIF flex 75 degrees (at rest) DIP: LIF flex 45 degrees (at rest) ROM Comments: L hand. R hand AROM WNL. - Strength Strength Comments: Unable to perform with L hand, but attempt was made for lateral grasp with L hand. RUE MMT 4+/5. - Sensation Sensation Comments: No c/o numbness/tingling in hands - Quick DASH-Disab of Arm,Shoulder& Hand Quick DASH Score: 81.8175 - Goals Goal:: Pt will be able to increase his PROM by 5 degrees without any c/o pain with LUE to open/close his hand and bend his arm for increased joint mobility and decreased risk of contractures. Goal:: Pt will be educated on proper skin hygiene, trimming of nails to help with minimizing risk of skin breakdown and decrease pain level to less than 5/10. Goal:: Pt will be fitted with appropriate LUE orthosis to prevent further risk of contractures Goal:: Pt will be educated on how to don/doff LUE orthosis and wearing schedule prior to d/c - Rehabilitation General Assessment: Assessed ROM in LUE and provided gentle passive ROM ex's with pt for shoulder flex, elbow flex/ext, forearm sup/pronation, wrist flex/ext and pt did not report pain with each ex's for 1 set of 5 each plane. Educated pt on importance of maintaining good skin hygiene with L hand and encouraged pt to keep rolled washcloth in palm of hand with open web space for increased ROM and to prevent further risk of contractures with pt/girlfriend verbalizing understanding. Rehabilitation Potential: Good - Anticipated Interventions A/AAROM/PROM, Strengthening, Modalities, Orthoses, Joint Protection/Energy Conservation, Fine Motor Coord/Thomas, Neuro Reeducation, ADL Training, Education re Correct Donning Tech,Care&Wearing Sched Comp Garments, Caregiver Training, Home Program - Visit Plan Frequency: 2x /Week Duration: 6 Weeks General Plan: Increase ROM, pt/caregiver education on proper orthosis for LUE, contracture management, and skin integrity TEXT: Thank you for the opportunity to evaluate your patient. For Medicare and Medicare HMO plans, please review the plan of care and approve it. It will need to be FAXED BACK to us at [phone] for Medicare purposes. Please let me know if there are questions or concerns regarding this plan of care. Physician Signature: Date:
--- NOTE | 2020-05-06 11:28 | HP.PTREVAL_ITS ---
Dr. Magnolia Giles, DO, It has been my pleasure to treat COOPER CROCKETT Jr. over the last 2 visits for L SHLD ADHESIVE CAPSULITIS AND TENDONITIS. Please see the progress note below for an update on the physical therapy plan of care! Subjective: PATIENT PRESENTS TO PT WITH HIS GIRLFRIEND QIANA. THEY REPORT HE HAS BEEN TO THE EMERGENCY DEPT 3 TIMES SINCE PT EVAL DUE TO PASSING OUT FROM BLOOD PRESSURE DROPPING. HE REPORTS THE DOCTORS DO NOT KNOW WHAT IS CAUSING IT. LAST ED VISIT WAS YESTERDAY. THIS IS PATIENTS FIRST PT FOLLOW UP VISIT IN 3 WEEKS. HE DENIES ANY CHANGES SINCE LAST VISIT. STATES HIS ARM IS STILL DOING BETTER NOW COMPARED TO BEFORE SURGERY. Objective/Function: PATIENT IS VERY PLEASANT AND COOPERATIVE TO WORK WITH. LEFT SHLD PASSIVE FLEXION TO 72 DEG TODAY SO HE HAS LOST A FEW DECREES OF MOTION OVER THE LAST 3 WEEKS. CAREGIVER DID A REALLY GOOD JOB WITH PROM TODAY. Plan Plan: CHECK CAREGIVER PROM TECHNIQUE. LEFT UE ROM, STRETCHING AND STRENGTHENING IN COMFORTABLE ROM ONLY. Goals Goal 1:: INCREASE FUNCTIONAL ROM OF LEFT UE Goal Time Frame: 4-6 Weeks Goal 2:: PATIENT WILL BE INDEP WITH A HEP FOR CONTINUED IMRPOVEMENT ONCE FORMAL PHYSICAL THERAPY CONCLUDES. Goal Time Frame: 4-6 Weeks Anticipated Interventions Patient/Client Instruction: Educate patient on: Condition, Plan of Care, Risk Factors, Benefits of Fitness Program For the Purpose of:: To improve self management Therapeutic Exercise to Include: Strength training, Postural training, Flex ibilty training, Neuromotor development, Passive ROM, Active ROM, Scapular Strength/Stabilization For the Purpose of:: To increase ROM, To improve muscle performance and motor function, To improve ability of physical actions for home/community/work/leisure Manual Therapy Techniques to Include: Passive ROM For the Purpose of:: To increase ROM Please do not hesitate to contact me at [phone] by phone or if you have questions or concerns regarding this new plan of care! Sincerely, Wilma Sorensen, PT, Cert MDT
--- NOTE | 2020-09-16 10:23 | HP.OT.NRP ---
COOPER ALCALA BON Hernandez was seen in my office for initial evaluation on 04/24/20. The following Plan of Care was established for this patient: Initial Frequency: 2x /Week Initial Duration: 6 Weeks Plan: Pt to bring in hand brace for next session Anticipated Interventions: A/AAROM/PROM, Strengthening, Modalities, Orthoses, Joint Protection/Energy Conservation, Fine Motor Coord/Thomas, Neuro Reeducation, ADL Training, Education re Correct Donning Tech,Care&Wearing Sched Comp Garments, Caregiver Training, Home Program This patient was last seen in our office 05/06/20. Pertinent comments regarding their Occupational therapy will appear below: pt was seen for two OT visits- pt did not schedule further apts and due to time lapse in services pt d/c. At this point I will be discontinuing this patient from occupational therapy. I would be happy to see this patient again in the future if found appropriate by the physician. Thank you! Lovely Bansal, OTR/L, CHT
== END 2020-05-06 19:00 | disposition home or self-care (01) ==
LOC: OT 09:30
PROVIDERS: PCP Family Medicine; Referring Provider Orthopaedic Surgery; Visit Provider Orthopaedic Surgery
DX: M24.542 Contracture, left hand (principal); M24.541 Contracture, right hand
CPT/HCPCS: 97140; 97162; 97166; 97530

== ENCOUNTER → 2020-05-23 14:28 | Outpatient (CLI) | payer MEDICARE, MEDICAID, SELFPAY ==
[2020-05-23 13:29] VITALS: BMI 32.6
--- NOTE | 2020-05-23 14:29 | VDUE_ITS ---
Reason For Study: swelling Left Proximal Left jugular vein is spontaneous, widely patent, phasic, with no intraluminal echogenicity noted. Left subclavian vein is spontaneous, widely patent, phasic, with no intraluminal echogenicity noted. Left Arm Left axillary vein is spontaneous, patent, phasic, competent, compressible and demonstrates augmentation. Left brachial vein is compressible. Left cephalic vein is compressible. Left basilic vein is compressible. Left Lower Arm Left radial vein is compressible. Left ulnar vein is compressible. Prelim to Jason Larson. Interpretation Summary No evidence for acute deep venous thrombosis[left] upper extremity with patent and compressible cephalic and basilic veins. Ordering Physician: Branden Larson Performed By: Jorge Monk RVCristhian ?
== END ==
PROVIDERS: PCP Family Medicine; Referring Provider Physician Assistant; Visit Provider Physician Assistant
DX: M79.89 Other specified soft tissue disorders (principal)
CPT/HCPCS: 93971

== ENCOUNTER 2020-07-26 10:00 | Day surgery (SDC) | payer MEDICARE, MEDICAID, SELFPAY ==
[2020-06-28 11:26] VITALS: BMI 32.6
[2020-07-26 11:02] VITALS: BP 119/81; PULSE 65; RESP 16; TEMP 37.6; O2SAT 100; BMI 33.6
[2020-07-26] MEDS: Lactated Ringers 1,000 ML 75 ML IV (11:20)
[2020-07-26] MEDS: Cefazolin 2 GM in 0.9% Normal Saline 100 ML IV (11:59)
--- NOTE | 2020-07-26 12:00 | RAD_ITS ---
HISTORY: INSERTION BACLOFEN PAIN PUMP IMPLANT. LEVEL L3-L4.14.97 mGy 20.2 sec 1 image ADDITIONAL HISTORY: None provided. COMPARISON: Lumbar spine 05/02/2018 TECHNIQUE: Intraoperative fluoroscopic imaging performed for pain pump implant FINDINGS: Lateral fluoroscopic spot view of the lower thoracic and upper lumbar spine from T10-11 to L3 shows catheters spinal canal and posterior soft tissues. RAD/Spine 1 View Any Level IMPRESSION: Intraoperative fluoroscopic guidance. Refer to operative report. at 1710 Reported and signed by: Akiko Dougherty MD Electronically Signed: Akiko Dougherty MD at 17:10 EDT Tel , Service support ,
[2020-07-26] MEDS: Bupiv/Epi 0.25% 30 ML Vial (12:49)
[2020-07-26] MEDS: 0.9% Normal Saline (Pres. free 10 ML Vial (12:50)
[2020-07-26 13:26] VITALS: BP 116/96; BP 119/81; PULSE 86; RESP 16; TEMP 36.7; O2SAT 98
[2020-07-26 13:30] VITALS: BP 112/71; BP 119/81; PULSE 87; RESP 16; O2SAT 95
[2020-07-26 13:35] VITALS: BP 109/75; BP 119/81; PULSE 85; RESP 18; O2SAT 96
[2020-07-26 13:41] VITALS: BP 119/81; BP 136/85; PULSE 85; RESP 18; TEMP 36.6; O2SAT 94
[2020-07-26 14:12] VITALS: BP 119/81
== END 2020-07-26 14:24 | disposition home or self-care (01) ==
LOC: SDC 10:01 → AC 10:01
PROVIDERS: Anesthesiology; PCP Family Medicine; Referring Provider Anesthesiology Pain Medicine; Visit Provider Anesthesiology Pain Medicine
PROC: (CPT 62350; principal; 2020-07-26 11:40)
DX: M96.1 Postlaminectomy syndrome, not elsewhere classified (principal); G89.4 Chronic pain syndrome; M48.061 Spinal stenosis, lumbar region without neurogenic claudication; Z11.59 Encounter for screening for other viral diseases; I10 Essential (primary) hypertension; K21.9 Gastro-esophageal reflux disease without esophagitis; F32.9 Major depressive disorder, single episode, unspecified; G43.909 Migraine, unspecified, not intractable, without status migrainosus; Z86.73 Personal history of transient ischemic attack (TIA), and cerebral infarction without residual deficits; Z87.442 Personal history of urinary calculi; Z79.82 Long term (current) use of aspirin; Z79.899 Other long term (current) drug therapy
CPT/HCPCS: 01992; 62350; 62362; 72020; 76000; 87635; C9803; J7120; J0475; J3490; U0003

== ENCOUNTER 2020-07-29 18:08 | Emergency (ER) | payer MEDICARE, MEDICAID, SELFPAY ==
[2020-07-29] VITALS (10 sets, daily range): BP systolic 128–145; BP diastolic 82–111; PULSE 70–89; RESP 16–18; TEMP 35.6–36.9; O2SAT 98; BMI 33.7
--- NOTE | 2020-07-29 18:25 | EKG12_ITS ---
Test Reason : CP Blood Pressure : / mmHG Vent. Rate : 067 BPM Atrial Rate : 067 BPM P-R Int : 158 ms QRS Dur : 108 ms QT Int : 404 ms P-R-T Axes : 043 -01 056 degrees QTc Int : 426 ms Normal sinus rhythm Normal ECG Confirmed by JENAE SILVA, CHRISTINA ([id number]), video editor VALENTINA ALONZO ([id number]) on 08/07/2020 1:41:20 PM Referred By: SANDIP/PACO Confirmed By:CHRISTINA EMANUEL MD
--- NOTE | 2020-07-29 18:26 | CT_ITS ---
STUDY: CT ABDOMEN AND PELVIS WITH CONTRAST REASON FOR EXAM: Male, 39 years old. Nausea and vomiting. Sore throat today. Surgery Wednesday for BACLOFEN pump placement. RADIATION DOSAGE (If Supplied By Facility): CTDIvol = ( 20.38 ) mGy, DLP = ( 1471.81 ) mGycm TECHNIQUE: Transaxial images were obtained from the dome of the diaphragm to the symphysis pubis without oral contrast. IV 100mL Isovue-300 was administered. Sagittal and coronal images were reconstructed. Individualized dose optimization techniques were used for this CT. COMPARISON: None. FINDINGS: The visualized lung bases are unremarkable. The visualized portions of the heart are within normal limits. Normal liver. There are surgical clips in the gallbladder fossa consistent with a prior cholecystectomy. Normal spleen. Is fatty replacement pancreas without mass. Normal bilateral adrenal glands. Normal right kidney. Normal left kidney. Normal visualized ureters. Normal visualized stomach. Normal small intestine. Normal colon. The appendix is visualized and appears normal. Normal abdominal aorta. Normal inferior vena cava. Normal retroperitoneum. Normal urinary bladder. Normal prostate. There is no pelvic lymphadenopathy. No free air or free fluid is seen within the peritoneal cavity. There is a pump in the soft tissues of the right lower abdomen. There is a catheter extending posteriorly into the spinal canal at the level of the L2-3 disc extending upward into the thoracic spine. There is also a dorsal column stimulator with its generator in the upper right buttock. There is air in the soft tissues of the back at the level of the spinous process of L2. Normal osseous structures. CT/Abdomen/Pelvis W IV Cont ONLY IMPRESSION: 1. No evidence of acute intra-abdominal or pelvic abnormality. 2. Dorsal column stimulator and pain pump in the soft tissues of the right abdomen and flank without inflammatory change or other acute abnormality. Electronically Signed: Rohit Brush DO at 20:10 EDT Tel [phone], Service support ,
--- NOTE | 2020-07-29 18:27 | ED.DCSUM_ITS ---
History of Present Illness Chief Complaint: Nausea/Vomiting Informant: Patient Narrative: 39-year-old male with past medical history of CVA presents with concern for vomiting. Patient states that he had a baclofen pump placed 3 days ago. States he has had vomiting since that time. States he does have pain around his site since the surgery. Denies any fever, chills, constipation, diarrhea. Past Medical History - Allergies and Home Meds Allergies/Adverse Reactions: Allergies lithium Allergy (Verified 07/24/20 14:56) Swelling Primary Care Physician: Felicia Pendleton MD [Primary Care Provider] - Prior records reviewed: Yes Past Medical History: - - CVA Surgical History: - - baclofen pump placement Lives: Spouse/ Significant Other Smoking Status: Never smoker Alcohol: None Drugs: None Review of Systems General: Denies: Chills, Fever, Sweats Eyes: Denies: Visual changes - bilaterally, Diplopia ENT: Denies: Rhinorrhea, Sore throat Cardiovascular: Denies: Chest pain, Palpitations Respiratory: Denies: Dyspnea, Cough, Dyspnea on exertion Gastrointestinal: Reports: Vomiting. Denies: Abdominal pain, Nausea, Diarrhea, Melena, Hematochezia Genitourinary: Denies: Dysuria, Hematuria, Frequency Musculoskeletal: Denies: Back pain, Extremity Pain Skin: Denies: Rash, Wounds Neurological: Denies: Headache, Weakness, Numbness Physical Exam Vital Signs/Narrative: Vital Signs Temp Pulse Resp BP 07/29/20 18:12 96.0 F L 89 18 145/111 H 07/29/20 18:09 96.0 F L 89 18 145/111 H Inital Vital Signs reviewed: Yes General: Well nourished, Well developed, No Acute Distress Head: Normocephalic, Atraumatic Eyes: Perrl, EOMI ENT: Moist mucous membranes, No rhinorrhea Neck: Supple, Nontender Cardiovascular: Regular rate, Regular rhythm, No murmurs Respiratory: No distress, CTA bilaterally, Chest nontender Abdomen: Soft, Nondistended, Normal bowel sounds, - - TTP around surgical site without drainage. Back: Nontender, Normal Inspection Extremities: Nontender, No edema Skin: Normal color, No rash Neurological: Alert, Oriented x3, Cranial nerves II-XII grossly intact, - - left hemiparesis Psychological: Normal affect, Normal Mood Diagnostic/Tx/Re-eval Clinical Impression(s) from Imaging Studies Abdomen/Pelvis CT 07/29/20 18:26 IMPRESSION: 1. No evidence of acute intra-abdominal or pelvic abnormality. 2. Dorsal column stimulator and pain pump in the soft tissues of the right abdomen and flank without inflammatory change or other acute abnormality. Electronically Signed: Rohit Brush DO at 20:10 EDT Tel [phone], Service support , Laboratory Data 07/29/20 07/29/20 07/29/20 18:30 18:30 18:30 WBC 13.9 H RBC 5.27 Hgb 16.0 Hct 47.9 MCV 90.9 MCH 30.4 MCHC 33.4 RDW Std Deviation 40.8 RDW Coeff of Tammy 12.3 Plt Count 241 MPV 10.1 Immature Gran % (Auto) 1.400 H Neut % (Auto) 89.5 H Lymph % (Auto) 5.7 L [place] % (Auto) 2.9 Eos % (Auto) 0.1 Baso % (Auto) 0.4 Absolute Neuts (auto) 12.5 H Absolute Lymphs (auto) 0.80 L Nucleated RBC % 0 PT 13.1 INR 1.0 APTT 27.8 Sodium 143 Potassium 3.4 L Chloride 111 H Carbon Dioxide 25.0 Anion Gap 7 BUN 18 Creatinine 0.93 Estim Creat Clear Calc 119.32 Est GFR (MDRD) Af Amer 115 Est GFR (MDRD) Non-Af 95 BUN/Creatinine Ratio 19.4 Glucose 159 H Lactic Acid Calcium 9.2 Total Bilirubin 0.80 AST 12 L ALT 24 Alkaline Phosphatase 132 H Total Protein 7.9 Albumin 4.1 Globulin 3.8 Albumin/Globulin Ratio 1.1 Lipase 31 L Urine Color Urine Clarity Urine pH Ur Specific [place] Urine Protein Urine Glucose (UA) Urine Ketones Urine Occult Blood Urine Nitrite Urine Bilirubin Urine Urobilinogen Ur Leukocyte Esterase Urine RBC Urine WBC Ur Squamous Epith Cells Urine Bacteria Urine Mucus 07/29/20 07/29/20 18:35 19:52 WBC RBC Hgb Hct MCV MCH MCHC RDW Std Deviation RDW Coeff of Tammy Plt Count MPV Immature Gran % (Auto) Neut % (Auto) Lymph % (Auto) [place] % (Auto) Eos % (Auto) Baso % (Auto) Absolute Neuts (auto) Absolute Lymphs (auto) Nucleated RBC % PT INR APTT Sodium Potassium Chloride Carbon Dioxide Anion Gap BUN Creatinine Estim Creat Clear Calc Est GFR (MDRD) Af Amer Est GFR (MDRD) Non-Af BUN/Creatinine Ratio Glucose Lactic Acid 2.3 H* Calcium Total Bilirubin AST ALT Alkaline Phosphatase Total Protein Albumin Globulin Albumin/Globulin Ratio Lipase Urine Color Yellow Urine Clarity Clear Urine pH 6.0 Ur Specific [place] 1.015 Urine Protein 15 H Urine Glucose (UA) Normal Urine Ketones Negative Urine Occult Blood 50 H Urine Nitrite Negative Urine Bilirubin Negative Urine Urobilinogen 1 H Ur Leukocyte Esterase Negative Urine RBC 0-5 SEEN Urine WBC 0 SEEN Ur Squamous Epith Cells 0 SEEN Urine Bacteria 0 SEEN Urine Mucus 0 SEEN - Rhythm Strip Rhythm Strip: Sinus Rhythm Rate: 83 Ectopy: None - EKG Initial EKG Interpretation: Sinus Rhythm - Sinus rhythm at 83 bpm. AR interval of 180 ms. QTC of [address] changes. No significant change from previous on 02/28/2019. - Medical Decision Making Patient appears well and nontoxic. CT abdomen pelvis negative. Patient does have a leukocytosis. Likely secondary to the patient's vomiting. Lactic acidosis of 2.3. Patient does appear somewhat volume depleted and will be given 2 L normal saline. Patient given Zofran but continued to be nauseous and then given Phenergan. Patient had resolution of his nausea will be given Phenergan for home. Offered admission but patient does wish to be discharged home. Asked to return for new or worsening symptoms. Patient agreeable and discharged home in stable condition. Impression: 1. Vomiting 2. History of CVA 3. Recent baclofen pump insertion ED Disposition - Plan for ED Patient: Disposition: Home or Assisted Living Instructions: ED Nausea Vomiting Adult Prescriptions: proMETHazine tablet [Phenergan] 25 mg PO Q6H PRN PRN #10 tab PRN Reason: Nausea Prescription Printed Referrals: Felicia Pendleton MD [Primary Care Provider] - 2 Days
[2020-07-29 18:47] LABS: Absolute Neutrophil Count 12.5 X10^3/uL (2.0-7.7); Basophil# 0.06 X10^3/uL; Basophil% 0.4 % (0-1); Eosinophil# 0.01 X10^3/uL; Eosinophils% 0.1 % (0-5); Hematocrit 47.9 % (40-54); Lymphocyte % 5.7 % (19-41); Mean Corp Hgb Conc 33.4 g/dL (32-36); Mean Corpuscular Hgb 30.4 pg (27.0-32.0); Mean Corpuscular Volume 90.9 fL (80-94); Mean Platelet Vol. 10.1 fl (6.2-12.0); Monocyte# 0.41 X10^3/uL; Monocyte% 2.9 % (0-10); NRBC Flagged by Analyzer 0 % (0-5); Neutrophil # 12.45 X10^3/uL (2.7-7.7); Neutrophil % 89.5 % (47-70); Platelet Count 241 K/mm3 (150-450); RBC Distribution Width CV 12.3 % (11.6-14.6); RBC Distribution Width SD 40.8 fl (35.1-43.9); Red Blood Count 5.27 M/mm3 (4.6-6.2); White Blood Count 13.9 K/mm3 (4.4-11.0)
[2020-07-29] MEDS: 0.9% Normal Saline 1,000 ML 999 ML IV ×2 (18:49→21:18)
[2020-07-29 18:58] LABS: Prothrombin Time (Protime)PT. 13.1 SECONDS (11.7-14.9)
[2020-07-29 18:59] LABS: Partial Thromboplast Time 27.8 Seconds (24.1-36.2)
[2020-07-29 19:03] LABS: ALB/GLOB Ratio 1.1 RATIO (0.9-2.4); AST(SGOT) 12 U/L (15-37); Alanine Aminotransfer ALT/SGPT 24 U/L (16-61); Albumin, Serum 4.1 g/dL (3.2-5.0); Alkaline Phosphatase 132 U/L (45-117); Anion Gap 7 (5-15); BUN 18 mg/dL (7-18); BUN/Creat Ratio 19.4 RATIO (10-20); Calcium,Total 9.2 mg/dL (8.5-10.1); Chloride 111 mmol/L (98-107); Creatinine, Serum 0.93 mg/dL (0.70-1.30); EST Glomerular Filtration Rate 95 mL/min (>60); Est Glom Filt Rate - Afr Amer 115 mL/min (>60); Estimated Creatinine Clearance 119.32 ml/min; Globulin 3.8 g/dL (2.2-4.2); Glucose 159 mg/dL (74-106); Lipase 31 U/L (73-393); Potassium 3.4 mmol/L (3.5-5.1); Protein, Total 7.9 g/dL (6.4-8.2); Sodium Level 143 mmol/L (136-145)
[2020-07-29 19:12] LABS: Lactic Acid 2.3 mmol/L (0.4-1.9)
[2020-07-29 19:57] LABS: Bacteria 0 SEEN /hpf (None Seen); Mucous, Urine 0 SEEN /hpf (<or=2+); Squamous Epithelial Cells - UA 0 SEEN /hpf (0-5); White Blood Cells 0 SEEN /hpf (0-5)
[2020-07-29 20:04] LABS: Color, Urine Yellow (Yellow); Glucose, Dipstick Normal (Normal); Ketone-Dipstick Negative (Negative); Leukocyte Esterase-Dipstick Negative /ul (Negative); Nitrite-Dipstick Negative (Negative); Occult Blood-Urine 50 /ul (Negative); Protein-Dipstick 15 mg/dl (Negative); Specific Gravity, Urine 1.015 (1.002-1.030); Urine Bilirubin Dipstick Negative (Negative); Urine Clarity Clear (Clear); Urine Urobilinogen 1 mg/dl (Normal)
[2020-07-29 20:18] LABS: Red Blood Cells-Urine 0-5 SEEN /hpf (0-5)
[2020-07-29] MEDS: proMETHazine 25 MG/ML Syringe 6.25 MG IV (21:19)
[2020-07-29 22:41] LABS: Reflex Lactate? Y
== END 2020-07-29 23:00 | disposition home or self-care (01) ==
PROVIDERS: Emergency Provider Emergency Medicine; PCP Family Medicine
DX: R11.2 Nausea with vomiting, unspecified (principal); Z86.73 Personal history of transient ischemic attack (TIA), and cerebral infarction without residual deficits; Z97.8 Presence of other specified devices; Z79.82 Long term (current) use of aspirin; Z79.899 Other long term (current) drug therapy
CPT/HCPCS: 74177; 80053; 81001; 83605; 83690; 85025; 85610; 85730; 87040; 87086; 93005; 96361; 96374; 99283; Q9967

== ENCOUNTER 2020-08-05 10:42 | Emergency (ER) | payer MEDICARE, MEDICAID, SELFPAY ==
[2020-07-29 18:09] VITALS: BMI 33.7
[2020-08-05 10:43] VITALS: BP 142/91; PULSE 72; RESP 17; TEMP 36.9; O2SAT 98; BMI 33.6
--- NOTE | 2020-08-05 11:19 | RAD_ITS ---
STUDY: X-RAY CHEST REASON FOR EXAM: Male, 39 years old. Sudden onset CP, increases with deep breath TECHNIQUE: Single AP portable view of the chest. COMPARISON: Comparison is made with prior study dated 02/28/2019. FINDINGS: EKG electrodes are seen. The lungs are clear and expanded. There is no demonstrated pleural abnormality. Normal size heart. Normal mediastinum and rodrigo. Normal visualized pulmonary arteries. Normal visualized aortic arch and descending thoracic aorta. There are degenerative changes of the visualized thoracic spine. Electrodes from a pain stimulator device are seen with the tip at the T6-T7 level. Normal visualized ribs, clavicles, and shoulders. There is no demonstrated abnormality of the visualized soft tissue structures of the upper abdomen. RAD/Chest 1 View (Portable) IMPRESSION: Stable examination. No acute abnormality is seen. Electronically Signed: Luke Goncalves, at 12:06 EDT , Service support ,
--- NOTE | 2020-08-05 11:19 | EKG12_ITS ---
Test Reason : VOMITING Blood Pressure : / mmHG Vent. Rate : 083 BPM Atrial Rate : 083 BPM P-R Int : 180 ms QRS Dur : 114 ms QT Int : 386 ms P-R-T Axes : 043 -06 027 degrees QTc Int : 453 ms Normal sinus rhythm Minimal voltage criteria for LVH, may be normal variant Nonspecific ST abnormality Poor R wave progression Abnormal ECG Confirmed by ERNIE SILVA, JEREMISA ([id number]), index editor VALENTINA ALONZO ([id number]) on 08/05/2020 11:46:04 AM Referred By: ZINA Confirmed By:JEREMIAS KLEIN MD
--- NOTE | 2020-08-05 11:28 | ED.DCSUM_ITS ---
History of Present Illness Chief Complaint: Chest Pain Informant: Patient Onset: Weeks Timing: Intermittent Quality: Pressure Worsened By: Breathing Relieved By: Nothing Narrative: Patient is a 39-year-old male with history of migraines, stroke with left-sided hemiparesis chronic pain presenting with chest pain. Patient states for the past few weeks he has had intermittent episodes of chest pain. It is feels like a pressure and is worse with deep breathing. He had a couple episodes last few nights and then went him and his father at the drugstore today he suddenly started having them again. They came immediately to the ER. Patient states that the pain is also stabbing when he takes a deep breath. It is worse today than it has been. He denies any shortness of breath or cough. He denies any fever or chills. Patient states he was at [place] emergency room to be evaluated for this about 3 to 4 weeks ago and he was sent home. I do not know what tests were done. Patient did have a baclofen pump placed 10 days ago on July 26. Patient does see a neurologist in [place]. He has not been given any follow-up with a nurse general duty and is looking for a referral. He has had some associated nausea but no vomiting. No change in bowel habits or urinary symptoms. No other complaints at this time. Patient is with his father who lives with him and helps caring for him. Patient ambulates with a cane at baseline. Patient's only on aspirin. Denies any history of DVT or PE. Past Medical History - Allergies and Home Meds Allergies/Adverse Reactions: Allergies lithium Allergy (Verified 08/05/20 10:43) Swelling Primary Care Physician: Eusebio Coley MD [STAFF PHYSICIAN] - Felicia Pendleton MD [Primary Care Provider] - Past Medical History: - - Chronic back pain, stroke, left-sided deficits, migraines Surgical History: - - baclofen pump placement, back pain stimulator Lives: With Family Smoking Status: Never smoker Review of Systems General: Denies: Chills, Fever, Sweats Eyes: Denies: Visual changes - bilaterally, Diplopia ENT: Denies: Rhinorrhea, Sore throat Cardiovascular: Reports: Chest pain. Denies: Palpitations, Heart racing Respiratory: Reports: Dyspnea. Denies: Cough, Dyspnea on exertion Gastrointestinal: Denies: Abdominal pain, Nausea, Vomiting, Diarrhea, Melena, Hematochezia Genitourinary: Denies: Dysuria, Hematuria, Frequency Musculoskeletal: Denies: Back pain, Extremity Pain Skin: Reports: Rash - Groin?improving with nystatin powder. Denies: Wounds Neurological: Denies: Headache, Weakness, Numbness Physical Exam Vital Signs/Narrative: Vital Signs Temp Pulse Resp BP Pulse Ox 08/05/20 10:43 98.4 F 72 17 142/91 H 98 Inital Vital Signs reviewed: Yes General: Well nourished, Well developed, No Acute Distress Head: Normocephalic, Atraumatic Eyes: Perrl, EOMI ENT: Moist mucous membranes, No rhinorrhea, TM's clear Neck: Supple, Nontender, No JVD Cardiovascular: Regular rate, Regular rhythm, No murmurs Respiratory: No distress, CTA bilaterally, Chest nontender, Diminished - Dimini shed at the bases bilaterally. Negative for: Decreased Air Movement, Chest tenderness Abdomen: Soft, Nontender, Nondistended, Normal bowel sounds, - - Surgical site right lower quadrant from recent baclofen pump placement, no associated tenderness. Appears to be healing appropriately. Back: Nontender, Normal Inspection Extremities: Nontender, No edema Skin: Normal color, - - Erythematous rash of the inguinal folds consistent with candidiasis. Neurological: Alert, Oriented x3, Cranial nerves II-XII grossly intact, Normal Sensation, - - Left-sided deficits, chronic per patient Psychological: Normal affect, Normal Mood Diagnostic/Tx/Re-eval Clinical Impression(s) from Imaging Studies Chest X-Ray 08/05/20 11:19 IMPRESSION: Stable examination. No acute abnormality is seen. Electronically Signed: Luke Goncalves, at 12:06 EDT , Service support , Chest CTA 08/05/20 12:08 IMPRESSION: Normal CTA chest examination, without a demonstrated pulmonary embolism or arterial dissection. Electronically Signed: Luke Goncalves, at 12:54 EDT , Service support , Laboratory Data 08/05/20 08/05/20 08/05/20 10:30 10:30 10:30 WBC 7.3 RBC 5.13 Hgb 15.9 Hct 46.7 MCV 91.0 MCH 31.0 MCHC 34.0 RDW Std Deviation 39.9 RDW Coeff of Tammy 12.1 Plt Count 276 MPV 10.2 Neut % (Auto) Not Reportable Absolute Neuts (auto) 4.3 Absolute Lymphs (auto) 2.26 Total Counted 100 Neutrophils % (Manual) 59 Lymphocytes % (Manual) 31 Monocytes % (Manual) 9 Eosinophils % (Manual) 1 Diff Path Review May foll Reactive Lymphocytes 1+ Platelet Estimate ADEQUATE RBC Morphology NORM C+C PT 13.1 INR 1.0 D-Dimer Quant (PE/DVT) 0.50 H Sodium 144 Potassium 3.3 L Chloride 110 H Carbon Dioxide 25.0 Anion Gap 9 BUN 16 Creatinine 0.94 Estim Creat Clear Calc 118.06 Est GFR (MDRD) Af Amer 115 Est GFR (MDRD) Non-Af 95 BUN/Creatinine Ratio 17.1 Glucose 127 H Calcium 9.1 Troponin I < 0.015 08/05/20 13:50 WBC RBC Hgb Hct MCV MCH MCHC RDW Std Deviation RDW Coeff of Tammy Plt Count MPV Neut % (Auto) Absolute Neuts (auto) Absolute Lymphs (auto) Total Counted Neutrophils % (Manual) Lymphocytes % (Manual) Monocytes % (Manual) Eosinophils % (Manual) Diff Path Review Reactive Lymphocytes Platelet Estimate RBC Morphology PT INR D-Dimer Quant (PE/DVT) Sodium Potassium Chloride Carbon Dioxide Anion Gap BUN Creatinine Estim Creat Clear Calc Est GFR (MDRD) Af Amer Est GFR (MDRD) Non-Af BUN/Creatinine Ratio Glucose Calcium Troponin I < 0.015 - Rhythm Strip Rhythm Strip: Sinus Rhythm Rate: 67 Ectopy: None - EKG Initial EKG Interpretation: Sinus Rhythm, - - A rate of 67 Normal axis Normal intervals Normal ST segments No change prior to prior EKG on 02/28/2019 - Medical Decision Making Patient evaluated for intermittent episodes of chest pain that been going on for a couple weeks but seem to be worsening.Appears nontoxic in no acute distress. His vital signs are normal. EKG does not show any acute ischemic process and does not show any acute changes. Troponin is negative x2. D-dimer is minimally elevated however so a CTA of the chest is ordered to rule out PE. This is negative for any acute process. Father does go on to mention that patient has not been doing physical therapy and his pain seems to be worse with movement of his atrophied left upper extremity. I wonder if this could be muscle skeletal nature. Patient will be given a cardiology referral for further evaluation especially given his history of stroke by do not think he requires an inpatient evaluation at this time. He is instructed to alternate Tylenol and ibuprofen for pain. ED Disposition - Plan for ED Patient: Disposition: Home or Assisted Living Diagnosis: Atypical chest pain Instructions: ED Chest Pain Atypical Unkn Cause Referrals: Felicia Pendleton MD [Primary Care Provider] - Eusebio Coley MD [STAFF PHYSICIAN] - Additional Instructions: The exact cause of your chest pain is not clear. Is possible that it is muscle skeletal. At this time based on your work-up today I think you are stable for outpatient follow-up. Is possible that this could be muscle spasms of your chest. Please take anti-inflammatory such as ibuprofen or Naprosyn for this. Apply heat to the chest wall as well. I have given you follow-up information for cardiology.
[2020-08-05] MEDS: Aspirin 81 MG TAB.CHEW 324 MG PO (11:32)
[2020-08-05 11:35] LABS: Hematocrit 46.7 % (40-54); Hemoglobin 15.9 g/dL (13.0-16.5); Mean Platelet Vol. 10.2 fl (6.2-12.0); POSITIVE COUNT YES; POSITIVE MORPHOLOGY YES; Platelet Count 276 K/mm3 (150-450); RBC Distribution Width CV 12.1 % (11.6-14.6); RBC Distribution Width SD 39.9 fl (35.1-43.9); Red Blood Count 5.13 M/mm3 (4.6-6.2); White Blood Count 7.3 K/mm3 (4.4-11.0)
[2020-08-05 11:37] LABS: Differential Indicated MANUAL DIFF
[2020-08-05 11:41] LABS: Prothrombin Time (Protime)PT. 13.1 SECONDS (11.7-14.9)
[2020-08-05 11:46] LABS: Anion Gap 9 (5-15); BUN 16 mg/dL (7-18); BUN/Creat Ratio 17.1 RATIO (10-20); Calcium,Total 9.1 mg/dL (8.5-10.1); Chloride 110 mmol/L (98-107); Creatinine, Serum 0.94 mg/dL (0.70-1.30); EST Glomerular Filtration Rate 95 mL/min (>60); Est Glom Filt Rate - Afr Amer 115 mL/min (>60); Estimated Creatinine Clearance 118.06 ml/min; Glucose 127 mg/dL (74-106); Potassium 3.3 mmol/L (3.5-5.1); Sodium Level 144 mmol/L (136-145)
[2020-08-05 12:07] LABS: Eosinophil 1 % (0-5); Lymphocyte 31 % (19-41); Monocyte 9 % (0-10); Neutrophil-Segmented 59 % (47-70); Platelet Estimate ADEQUATE (ADEQ); Total Cells Counted 100 (MANUAL DIFF)
[2020-08-05 12:08] LABS: Red Cell Morphology NORM C+C NORMAL (NORM C&C)
--- NOTE | 2020-08-05 12:08 | CT_ITS ---
STUDY: CTA CHEST REASON FOR EXAM: Male, 39 years old. CHEST PAIN, WORSE WITH DEEP BREATHING, NAUSEA, HX-CVA 2012, HTN , SURG-BACLOFEN PUMP,APPY RADIATION DOSAGE (If Supplied By Facility): CTDIvol = ( 12.5 ) mGy, DLP = ( 538.13 ) mGycm TECHNIQUE: The examination was performed with the intravenous administration of IV 100mL Isovue-370. Post-processing of the angiographic images was performed, with multiplanar reformation and 3D reconstruction. Individualized dose optimization techniques were used for this CT. COMPARISON: None. FINDINGS: Normal enhancement of the main pulmonary artery and right and left pulmonary arteries. Normal enhancement of the bilateral peripheral pulmonary arteries. There is no demonstrated pulmonary embolism. Normal thoracic aorta and visualized great vessels. There is no demonstrated aortic dissection. Normal heart and pericardium. Normal mediastinum. Normal hilar regions. Normal visualized trachea and bronchi. The lungs are well expanded. Normal pulmonary parenchyma. Normal pleura. Normal chest wall structures. Normal osseous structures. The patient is status post cholecystectomy. CT/CTA Chest W/WO Contrast IMPRESSION: Normal CTA chest examination, without a demonstrated pulmonary embolism or arterial dissection. Electronically Signed: Luke Goncalves, at 12:54 EDT , Service support ,
[2020-08-05 12:09] LABS: Reactive Lymphocyte 1+
[2020-08-05 12:10] LABS: Absolute Lymphocyte Count 2.26 X10^3/uL (0.83-4.51); Absolute Neutrophil Count 4.3 X10^3/uL (2.0-7.7)
[2020-08-05 13:13] VITALS: BP 143/109; PULSE 51; RESP 16; O2SAT 97
[2020-08-05 14:00] VITALS: BP 151/115; PULSE 89; RESP 18; O2SAT 98
[2020-08-05] MEDS: Ketorolac 15 MG/ML Vial IV (14:31)
[2020-08-06 14:17] LABS: Pathologist Review Reviewed
== END 2020-08-05 14:37 | disposition home or self-care (01) ==
PROVIDERS: Emergency Provider Emergency Medicine; PCP Family Medicine
DX: R07.89 Other chest pain (principal); R11.0 Nausea; R06.00 Dyspnea, unspecified; M54.9 Dorsalgia, unspecified; G89.29 Other chronic pain; G43.909 Migraine, unspecified, not intractable, without status migrainosus; I69.354 Hemiplegia and hemiparesis following cerebral infarction affecting left non-dominant side; Z97.8 Presence of other specified devices; Z79.82 Long term (current) use of aspirin; Z79.899 Other long term (current) drug therapy
CPT/HCPCS: 71045; 71275; 80048; 84484; 85025; 85379; 85610; 93005; 96374; 99283; Q9967; A4216

== ENCOUNTER 2021-03-20 13:00 | Outpatient (RCR) | payer MEDICARE, MEDICAID, SELFPAY ==
--- NOTE | 2021-03-05 07:50 | HP.OTEVAL_ITS ---
Patient's Visit Information COOPER CROCKETT Jr. is a 40 year old M, referred to Occupational Therapy by FARIBA DAS, with a diagnosis of left hand contracture. Date of Evaluation: 02/26/21 Occupational Therapist: Lovely Bansal, SUGEY/Jimmy, CHT - Subjective This 40 year old male was seen for OT eval with dx of left hand contracture about 10 years- pt had contracture release done 2020 and was casted until February 25, 2021 and arrives today with short thumb spica with wrist free-. Pt denies pain and is happy with the results of his surgery. pt is hopeful he will recover some use of his hand to use left had as assistive hand. - Pain left wrist 3 Pain Intensity Range: 2, 4 - ROM Wrist: left 45/ initiation of flex pt pulls into extension ROM Comments: pt demo with MCP flex of average of 30-35* flex. IF and MF PIP is full ext with DIP flexion - Edema PIP: left MF 8.8 right 7.5 Proximal Phalanx: left 24cm right 21cm - Sensation Sensation Comments: pt states he does notice more - Quick DASH-Disab of Arm,Shoulder& Hand Quick DASH Score: 77.2725 - Goals Goal:100% adherence to protocol: Yes Comment: arthrodesis IP and MP/ flexor/extensor tenoectomy Goal:Daily scar massage when approriate: Yes Goal:No pain with affected hand use: Yes Goal:PIP Circumferences equal to unaffected hand: Yes Goal:Full use of affected hand in daily activities including: Yes Comment: assistive use Goal:Decrease scar hypersensitivity: Yes - Rehabilitation General Assessment: Pt is 8 weeks s/p left thumb interphalangeal joint and metacarpophalangeal joint arthrodesis with local bone graft tenotomy of flexor and extensor tendons. pt arrives with short thumb spica orthosis on and denies need for adjustments. pts incision is clean some redness on palm incision. PT limited with use of left UE from prior hx of [employer]PORATE [employer]NER spasticity and hemiplegia but exstream hand contracture sx has is increased pts feeling of his hand and increased need of assist with mobility, edema control, scar mtg and AROM AAROM to prevent further contractions. pt would benefit from skilled OT services 2x week for 6 weeks to assist pt in return of functional assistive left hand. Today therapist ed. pt and pts father on AAROM, AROM, scar mtg. orthosis use and skin care precautions. Both communicated understanding of instructions and agree to POC. Rehabilitation Potential: Good - Anticipated Interventions A/AAROM/PROM, Edema Control, Scar Care, Triggerpoint Release, Wound Care, Modalities, Orthoses, Ergonomic Education, Fine Motor Coord/Thomas, Education re Diagnosis, Caregiver Training - Visit Plan Frequency: 2x /Week Duration: 6 Weeks TEXT: Thank you for the opportunity to evaluate your patient. For Medicare and Medicare HMO plans, please review the plan of care and approve it. It will need to be FAXED BACK to us at [phone] for Medicare purposes. Please let me know if there are questions or concerns regarding this plan of care. Physician Signature: Date:
--- NOTE | 2021-03-20 13:19 | HP.OTDCSUM ---
It has been my pleasure to treat COOPER CROCKETT Jr. under orders from FARIBA DAS, for the diagnosis of left hand contracture for a total of 5 visit(s). Please see the following information for a summary of their discharge status. % Improvement: 50 Objective/Function: pt demo good understanding of using orthosis for support protection. pt to use for the next 12 weeks. therapist made adjustments to increase fit. therapist ed. pt to continue with left UE PROM to continue to mtg left UE tone. pt and pts father demonstrate understanding. Due risk of losing home care services pt is d/c at this time with HEP. Patient Goals: Use Hand/Wrist/Arm Normally Again, Increase ROM, Be More Independent in ADLS Goal:100% adherence to protocol: Yes Goal:Daily scar massage when approriate: Yes Goal:No pain with affected hand use: Yes Goal:PIP Circumferences equal to unaffected hand: Yes Goal:Full use of affected hand in daily activities including: Yes Goal:Decrease scar hypersensitivity: Yes Plan: cont. tx of PROM edema- looking at some type of orthosis Discharge Comments: pt was seen for 5 OT visits- pt demo good healing incision and need of continue use of thumb orthosis for next 12 weeks- therapist ed. pt to cont. with scar mtg and ROM to his abilities. Pts father ed. on PROM of left UE to decrease tone. Father agree with D//C at risk of losing home care services. pt to cont with HEP of ROM, scar mtg at able. If there are questions or concerns regarding this patient's occupational therapy, please fell free to call me at [phone]. Thank you for the referral of this patient. Sincerely, Lovely Bansal, OTR/L, CHT
== END 2021-03-20 19:00 | disposition home or self-care (01) ==
LOC: OT 13:00
PROVIDERS: PCP Family Medicine
DX: M24.542 Contracture, left hand (principal); S62.91XD Unspecified fracture of right hand, subsequent encounter for fracture with routine healing
CPT/HCPCS: 97140; 97166; 97530

== ENCOUNTER 2022-06-02 11:48 | Observation (INO) | payer MEDICARE, MEDICAID, SELFPAY ==
[2022-06-02] VITALS (17 sets, daily range): BP systolic 106–129; BP diastolic 65–95; PULSE 60–78; RESP 10–24; TEMP 35.9–37; O2SAT 93–98; BMI 37.7; BMI 36.5
--- NOTE | 2022-06-02 11:49 | ED.RN ---
PT PRESENTS TO TRIAGE WITH LEFT SIDED WEAKNESS AND N/T STARTING AT PAIN MANAGEMENT 20 MIN OPTICAL ASSISTANT. PT STATES HE HAD STROKE IN 2011 AND SYMPTOMS LIKE THIS HAPPENS SOMETIMES, DAD ALSO STATED THAT PT HAD SYMPTOMS WEDNESDAY WELL. VERIFIED WITH CHARGE NURSE HOLGER AND STROKE ALERT NOT INITIATED AT THIS TIME. PT TRIAGED AND PLACED IN ROOM 14.
--- NOTE | 2022-06-02 12:11 | CT_ITS ---
STUDY: CT HEAD STROKE PROTOCOL W/O CONTRAST INJECTION REASON FOR EXAM: Male, 41 years old. Neuro deficit, acute, stroke suspected RADIATION DOSAGE (If Supplied By Facility): CTDIvol = ( 47.06 ) mGy, DLP = ( 872.68 ) mGycm TECHNIQUE: Transaxial CT imaging of the brain was performed without administration of intravenous contrast material. Individualized dose optimization techniques were used for this CT. COMPARISON: No relevant priors. FINDINGS: Normal soft tissue structures. Normal calvarium. There is evidence of encephalomalacia involving the right temporal parietal lobes with dilatation of the ipsilateral lateral ventricle. This is in keeping with prior infarction. Normal white matter tracts of the cerebral hemispheres. Normal basal ganglia and thalami. Normal brainstem. Normal cerebellum. There is no intracranial hemorrhage. There are no findings of an acute ischemic infarction. Normal visualized paranasal sinuses. CT/STROKE Brain/Head without Cont IMPRESSION: Encephalomalacia in the right temporal parietal lobes with ipsilateral dilatation of the right lateral ventricle. This is in keeping with old infarction. N.B. : The above Results were Read Back by Luke Goncalves MD to Isela Hsieh and understanding confirmed on 06/02/2022 12:33:56 (ET). Electronically Signed: Luke Goncalves MD at 12:35 EDT ,
--- NOTE | 2022-06-02 12:11 | CT_ITS ---
STUDY: CTA HEAD AND NECK WITH CONTRAST REASON FOR EXAM: Male, 41 years old. Neuro deficit, acute, stroke suspected RADIATION DOSAGE (If Supplied By Facility): CTDIvol = ( 24.48 ) mGy, DLP = ( 915.81 ) mGycm TECHNIQUE: CT angiography was performed with a multi-detector CT scanner. Data acquisition was obtained from the skull base through the vertex following intravenous administration of IV 100mL Isovue-370. MIP images were reconstructed from the axial data set. Post-processing of the angiographic images was performed, with multiplanar reformation and 3D reconstruction. Individualized dose optimization techniques were used for this CT. COMPARISON: No relevant priors. FINDINGS: Normal bilateral petrous carotid arteries. Normal right cavernous carotid artery with a normal supraclinoid bifurcation. Normal left cavernous carotid artery with a normal supraclinoid bifurcation. Normal right A1 segments of the anterior cerebral artery. Normal left A1 segments of the anterior cerebral artery. Normal intact anterior communicating artery (ACOM). Normal bilateral A2 segments of the anterior cerebral arteries. Normal right M1 and M2 segments of the middle cerebral arteries, with a normal M1 bifurcation. Normal left M1 and M2 segments of the middle cerebral arteries, with a normal M1 bifurcation. Normal right posterior communicating artery (PCOM). Normal left posterior communicating artery (PCOM). Normal bilateral vertebral arteries. Normal basilar artery with a normal basilar bifurcation. The visualized bilateral superior cerebellar (SCA) arteries are normal. Normal bilateral P1, P2 and visualized P3 segments of the posterior cerebral arteries. There is no demonstrated aneurysm of the [place]. There is no demonstrated abnormality of the visualized brain. AORTIC ARCH: There is atherosclerotic calcific plaque formation of the aortic arch and great vessels arising from the aortic arch, without a hemodynamically significant stenosis. There is a bovine origin of the great vessels with a common origin of the brachiocephalic and left common carotid artery. Normal origin of the left subclavian artery. RIGHT CAROTID ARTERIES: Normal right common carotid artery (CCA). Normal right common carotid bulb. Normal origin of the right internal carotid (ICA) artery without a hemodynamically significant stenosis. Normal visualized cervical portion of the right internal carotid artery. Normal origin of the right external carotid artery (ECA). LEFT CAROTID ARTERIES: Normal left common carotid artery (CCA). Normal left common carotid bulb. Normal origin of the left internal carotid (ICA) artery without a hemodynamically significant stenosis. Normal visualized cervical portion of the left internal carotid artery. Normal origin of the left external carotid artery (ECA). VERTEBRAL ARTERIES: Normal bilateral vertebral arteries. CT/STROKE CTA Head AND Neck W/Con IMPRESSION: Normal CTA Head and neck with contrast. N.B. : The above Results were Read Back by Luke Goncalves MD to Isela Hsieh and understanding confirmed on 06/02/2022 12:42:58 (ET). Electronically Signed: Luke Goncalves MD at 12:44 EDT ,
--- NOTE | 2022-06-02 12:11 | EKG12_ITS ---
Test Reason : STROKE ALERT Blood Pressure : / mmHG Vent. Rate : 064 BPM Atrial Rate : 064 BPM P-R Int : 168 ms QRS Dur : 122 ms QT Int : 422 ms P-R-T Axes : 037 012 040 degrees QTc Int : 435 ms Normal sinus rhythm Normal ECG Confirmed by ERNIE SILVA, JEREMIAS ([id number]), story editor VALENTINA ALONZO ([id number]) on 06/03/2022 11:28:14 AM Referred By: KELSIE Confirmed By:JEREMIAS KLEIN MD
--- NOTE | 2022-06-02 12:12 | ED.VIS.STROK ---
HPI History of Present Illness Chief Complaint: Neuro S/Sx Informant: patient and parent Onset/Context/Timing Onset: Today Context: Sudden Onset Narrative Narrative: Patient present secondary to stroke symptoms. He had a stroke in 2011 that left left-sided weakness. He is unable to use his left arm and has weakness in his left leg at baseline. He was at Dr. Rhodes's office today to get his baclofen pump refilled. When leaving the office he became lightheaded and reports decreased movement in his left leg as well as numbness on his left side. Father states he will get these episodes. He was at [place] emergency room over the weekend and had a CT scan with what sounds of a CTA that was unremarkable. He was discharged home. This episode started 30 minutes ago. [facility] Medical History CVA (cerebral vascular accident) Migraines Home Medications aspirin 81 mg chewable tablet 81 mg PO DAILY@0800 02/28/19 [History Last Taken Unknown] atorvastatin 10 mg tablet 10 mg PO DAILY 02/28/19 [History Last Taken Unknown] lisinopril 10 mg tablet 10 mg PO DAILY 02/28/19 [History Last Taken 04/11/20 07:00 10 MG] topiramate 100 mg tablet 100 mg PO BID 02/28/19 [History Last Taken Unknown] verapamil 120 mg 24 hr capsule,extended release 120 mg PO DAILY 02/28/19 [History Last Taken 04/11/20 07:00 120 MG] escitalopram oxalate 20 mg tablet 20 mg PO DAILY 04/03/20 [History Last Taken 04/11/20 07:00 20 MG] promethazine 25 mg tablet 25 mg PO Q6H PRN PRN Nausea #10 tabs 07/29/20 [Rx Last Taken Unknown] clopidogrel 75 mg tablet (Plavix) 75 mg PO DAILY 06/02/22 [History Last Taken Unknown] Allergy/AdvReac Type Severity Reaction Status Date / Time lithium Allergy Swelling Verified 06/02/22 11:51 Social History Smoking Status: Never smoker ROS ROS ED Constitutional Constitutional ED: Denies chills or fever(s) Eyes Eyes: Denies change in vision or discharge from eye(s) ENT ENT ED: Denies discharge from eye(s), rhinorrhea or sore throat Cardiovascular Cardiovascular: Denies chest pain or palpitations Respiratory/Chest Respiratory/Chest: Denies cough or dyspnea Gastrointestinal Gastrointestinal: Denies abdominal pain, diarrhea, nausea or vomiting Genitourinary Genitourinary ED: Denies dysuria Musculoskeletal Musculoskeletal: Denies back pain or extremity pain Integumentary Denies Abrasions or rash Neurologic Neurologic: Reports paresthesias and weakness; Denies headache(s) Psychiatric Psychiatric: Denies anxiety or depression Allergic/Immunologic Allergic/Immunologic ED: Denies lip swelling or urticaria EXAM Physical Exam Const Vital Signs: 06/02/22 11:49 06/02/22 12:02 06/02/22 12:17 Temperature 97.2 F L Temperature Source Temporal Pulse Rate 77 78 Respiratory Rate 18 14 Blood Pressure 128/87 H Blood Pressure Mean 100 Pulse Ox 96 Oxygen Delivery Method Room Air Room Air Room Air 06/02/22 12:00 06/02/22 12:11 06/02/22 12:41 Temperature Temperature Source Pulse Rate 67 66 70 Respiratory Rate 24 H 12 17 Blood Pressure 124/78 H 129/78 H 113/72 Blood Pressure Mean 93 95 85 Pulse Ox 97 93 96 Oxygen Delivery Method Room Air Room Air Room Air 06/02/22 13:11 Temperature Temperature Source Pulse Rate 62 Respiratory Rate 11 L Blood Pressure 115/78 Blood Pressure Mean 90 Pulse Ox 97 Oxygen Delivery Method Room Air Positive well nourished and well developed General Appearance ED: well developed HEENT Reports moist mucous membranes Eyes EOMs intact bilaterally Chest Wall inspection of chest normal and palpation of chest normal Resp normal respiratory effort and clear to auscultation bilaterally GI normal to inspection, nondistended, normoactive bowel sounds Neuro oriented x3 Neuro Narrative: See NIH stroke score NIHSS NIHSS Initial: 1a Level of Consciousness: 0 1b LOC Questions (Score 2 if aphasic/stupor): 0 1c LOC Commands (Only score 1st attempt): 0 2 Best Gaze (If aphasic, use reflexive mvmts.): 0 3 Visual: 0 4 Facial Palsy: 0 5 Motor Arm Right (UN = amputation/fusion): 0 5 Motor Arm Left: 4 6 Motor Leg Right: 0 6 Motor Leg Left: 4 8 Sensory (Aphasia/stupor=0 or 1, coma=2): 2 9 Best Language: 0 10 Dysarthria (mute, coma=2, intubated=UN): 0 11 Extinction and Inattention (only scored if +): 1 Total Score: 11 MDM MDM MDM Narrative Medical decision making narrative: Stroke alert was initiated the time of my evaluation. CT and CTA of the head and neck were obtained. Lab work ordered along with EKG and chest x-ray. Lab Data Attestation: I reviewed the patient's lab results. Labs: Laboratory Results - last 24 hr 06/02/22 06/02/22 06/02/22 12:06 12:15 12:15 WBC 11.6 H RBC 5.72 Hgb 16.7 H Hct 50.3 MCV 87.9 MCH 29.2 MCHC 33.2 RDW Std Deviation 44.7 H RDW Coeff of Tammy 14.0 Plt Count 257 MPV 10.8 Immature Gran % (Auto) 2.200 H Neut % (Auto) 69.3 Lymph % (Auto) 21.0 Crockett % (Auto) 6.3 Eos % (Auto) 0.3 Baso % (Auto) 0.9 Absolute Neuts (auto) 8.0 H Absolute Lymphs (auto) 2.42 Nucleated RBC % 0 PT 13.3 INR 1.0 APTT 27.8 Sodium Potassium Chloride Carbon Dioxide Anion Gap BUN Creatinine Estim Creat Clear Calc Est GFR (MDRD) Af Amer Est GFR (MDRD) Non-Af BUN/Creatinine Ratio Glucose Calcium Troponin I High Sens POC Glucose 112 H 06/02/22 12:15 WBC RBC Hgb Hct MCV MCH MCHC RDW Std Deviation RDW Coeff of Tammy Plt Count MPV Immature Gran % (Auto) Neut % (Auto) Lymph % (Auto) Crockett % (Auto) Eos % (Auto) Baso % (Auto) Absolute Neuts (auto) Absolute Lymphs (auto) Nucleated RBC % PT INR APTT Sodium 142 Potassium 3.6 Chloride 115 H Carbon Dioxide 20.0 L Anion Gap 7 BUN 15 Creatinine 0.90 Estim Creat Clear Calc 120.84 Est GFR (MDRD) Af Amer 119 Est GFR (MDRD) Non-Af 99 BUN/Creatinine Ratio 16.7 Glucose 102 Calcium 9.1 Troponin I High Sens 6 POC Glucose Radiography Diagnostic Testing: Clinical Impression(s) from Imaging Studies Brain CT 06/02/22 12:11 IMPRESSION: Encephalomalacia in the right temporal parietal lobes with ipsilateral dilatation of the right lateral ventricle. This is in keeping with old infarction. N.B. : The above Results were Read Back by Luke Goncalves MD to Isela Hsieh and understanding confirmed on 06/02/2022 12:33:56 (ET). Electronically Signed: Luke Goncalves MD at 12:35 EDT , ADDENDUM: 06/02/22 1242 IMPRESSION: Encephalomalacia in the right temporal parietal lobes with ipsilateral dilatation of the right lateral ventricle. This is in keeping with old infarction. N.B. : The above Results were Read Back by Luke Goncalves MD to Isela Hsieh and understanding confirmed on 06/02/2022 12:33:56 (ET). Electronically Signed: Luke Goncalves MD at 12:35 EDT , Head/Neck CTA 06/02/22 12:11 IMPRESSION: Normal CTA Head and neck with contrast. N.B. : The above Results were Read Back by Luke Goncalves MD to Isela Hsieh and understanding confirmed on 06/02/2022 12:42:58 (ET). Electronically Signed: Luke Goncalves MD at 12:44 EDT , ADDENDUM: 06/02/22 1250 IMPRESSION: Normal CTA Head and neck with contrast. N.B. : The above Results were Read Back by Luke Goncalves MD to Isela Hsieh and understanding confirmed on 06/02/2022 12:42:58 (ET). Electronically Signed: Luke Goncalves MD at 12:44 EDT , EKG Initial EKG: Attestation: I personally reviewed and interpreted this EKG as follows: Interpretation: Sinus Rhythm (Sinus at 64 with no acute ischemia.) Treatment and Re-Evaluation Narrative: Portable chest x-ray per my interpretation shows chronic changes only. No focal infiltrate. EKG is unremarkable. Head CT reveals evidence of old stroke with no acute findings noted. CTA of the head and neck is unremarkable. Lab work reveals minimal elevation of white count of 11.6. Hemoglobin concentrated at 16.7. Coags are unremarkable. Chemistry studies normal. Patient was seen and evaluated by neurologist from [facility]. He advises no tPA at this time. He states if the patient's pacemaker, spinal stimulator, and pain pump are all compatible with MRI this should be performed. If not a repeat CT scan of the head in 24 hours is advised. Patient states he was told they are compatible with MRI but he does have a special cord that he needs to use to deactivate one of his devices. His father will bring this in. I will speak with hospitalist regarding admission for remainder of TIA/stroke work-up. Discharge Plan Triage Chief Complaint: Neuro S/Sx ED Provider: Isela Hsieh Dx/Rx/DC Orders Clinical Impression: Stroke-like symptom Prescriptions: No Action atorvastatin 10 MG tablet 10 mg PO DAILY lisinopril 10 MG tablet 10 mg PO DAILY Label Comments: TAKE 1 TABLET BY MOUTH EVERY DAY aspirin 81 MG tablet,chewable 81 mg PO DAILY@0800 topiramate 100 MG tablet 100 mg PO BID Label Comments: TAKE 1 TABLET BY MOUTH TWICE DAILY verapamil 120 MG capsule,ext rel. pellets 24 hr 120 mg PO DAILY escitalopram oxalate 20 MG tablet 20 mg PO DAILY promethazine 25 MG tablet 25 mg PO Q6H PRN PRN (Reason: Nausea) Qty: 10 0RF clopidogrel [Plavix] 75 mg Tablet 75 mg PO DAILY Rx Instructions: unsure of dose Primary Care Provider: Felicia Pendleton Referrals: Felicia Pendleton MD [Primary Care Provider] - Disposition Disposition: Acute Care Hospital [facility]
[2022-06-02 12:25] LABS: Absolute Lymphocyte Count 2.42 X10^3/uL (0.83-4.51); Basophil% 0.9 % (0-1); Eosinophil# 0.04 X10^3/uL; Eosinophils% 0.3 % (0-5); Hematocrit 50.3 % (40-54); Hemoglobin 16.7 g/dL (13.0-16.5); Lymphocyte # 2.42 X10^3/ul (0.83-4.51); Mean Corp Hgb Conc 33.2 g/dL (32-36); Mean Corpuscular Hgb 29.2 pg (27.0-32.0); Mean Corpuscular Volume 87.9 fL (80-94); Mean Platelet Vol. 10.8 fl (6.2-12.0); Monocyte# 0.73 X10^3/uL; Monocyte% 6.3 % (0-10); NRBC Flagged by Analyzer 0 % (0-5); Neutrophil # 8.01 X10^3/uL (2.7-7.7); Neutrophil % 69.3 % (47-70); Platelet Count 257 K/mm3 (150-450); RBC Distribution Width SD 44.7 fl (35.1-43.9); Red Blood Count 5.72 M/mm3 (4.6-6.2); White Blood Count 11.6 K/mm3 (4.4-11.0)
[2022-06-02 12:25] LABS: Bedside Glucose 112 mg/dL (74-106)
--- NOTE | 2022-06-02 12:35 | CM.ED ---
Social Work Note Reason for Referral: STROKE Team Alert Stroke Team called on pt. SW responded to Stroke Team. Pt's father Rafy present in room. SW provided emotional support to Rafy. Rafy states pt and him live together and pt cannot be left alone. Rafy states that pt needs 24 hour supervision. Rafy states that he just had rods put in his back in March so he is not able to physically assist pt. Rafy states he is not sure what to do with pt. Rafy states that pt does have assistance in the home including nurse, Therapy, and aides. Rafy states that pt has been to nursing homes before, states that he has been to [facility] in [place] and [facility] in [place]. Rafy states pt may need to return to SNF. Rafy states that when he has a doctor's appointment, he has to take pt's to his MIL. SW informed Rafy that SW will continue to follow and await next steps medically for pt. Rafy states understanding. SW to remain available should additional needs or concerns arise. Ondina Hernandez OPERATING ROOM RN, SENIOR UI DEVELOPER
--- NOTE | 2022-06-02 12:35 | ED.RN ---
Dr. Subhash BOTELLO, decision with Dr. Hsieh for no TPA. has pain stimulator to back and then baclofen pump to stomach with recent bruising to site.
[2022-06-02 12:37] LABS: Prothrombin Time (Protime)PT. 13.3 SECONDS (11.7-14.9)
[2022-06-02 12:38] LABS: Partial Thromboplast Time 27.8 Seconds (24.1-36.2)
[2022-06-02 12:43] LABS: Anion Gap 7 (5-15); BUN 15 mg/dL (7-18); BUN/Creat Ratio 16.7 RATIO (10-20); Calcium,Total 9.1 mg/dL (8.5-10.1); Chloride 115 mmol/L (98-107); EST Glomerular Filtration Rate 99 mL/min (>60); Est Glom Filt Rate - Afr Amer 119 mL/min (>60); Estimated Creatinine Clearance 120.84 ml/min; Glucose 102 mg/dL (74-106); Potassium 3.6 mmol/L (3.5-5.1); Sodium Level 142 mmol/L (136-145); Troponin-I HS 6 pg/mL (3.0-78.0)
[2022-06-02] MEDS: Acetaminophen 500 MG Tablet 1000 MG PO (12:52)
--- NOTE | 2022-06-02 12:53 | RAD_ITS ---
STUDY: X-RAY CHEST REASON FOR EXAM: Male, 41 years old. Neuro deficit, acute, stroke suspected TECHNIQUE: Single AP portable view of the chest. COMPARISON: Comparison is made with prior study 08/05/2020. FINDINGS: EKG electrodes are seen. The spinal cord stimulating device is seen with the tip at the T6 level. The lungs are clear and expanded. There is no demonstrated pleural abnormality. There is borderline cardiomegaly. A left-sided dual-chamber pacemaker is seen. Normal mediastinum and rodrigo. Normal visualized pulmonary arteries. Normal visualized aortic arch and descending thoracic aorta. Normal visualized thoracic spine. Normal visualized ribs, clavicles, and shoulders. There is no demonstrated abnormality of the visualized soft tissue structures of the upper abdomen. RAD/Chest 1 View IMPRESSION: Borderline cardiomegaly. The lungs are clear. Electronically Signed: Luke Goncalves MD at 13:24 EDT ,
--- NOTE | 2022-06-02 12:54 | ED.RN ---
RN dropped 2 tylenol, 2 more pulled to be given.
--- NOTE | 2022-06-02 13:10 | CHAPLAIN ---
Type of Pastoral Visit ___ Initial Visit ___ Follow-up Visit ___ On-call Visit ___ General Patient Visit ___ Spiritual Assessment ___ Family Conference ___ Bereavement _x__ Rapid Response ___ Code Blue ___ Other (describe below) Pastoral Care Referral From ___ Patient ___ Family ___ Nurse ___ Physician ___ Rib Matcher And Fitter ___ Industrial Relations Representative _x__ Other (describe below) Sacrament/Intervention _x__ Active listening ___ Anointing ___ Roman Catholic ___ Bereavement ___ Communion ___ Radha exploration ___ ___ Life review ___ Prayer ___ Reconciliation ___ Sacrament of Sick _x__ Supportive presence ___ Wedding ___ Other (describe below) Pastoral Comments responded to this stroke alert in the ED; patient had already gone to CT; father of patient is in the room and interacts with this food storeroom clerk and the SW member; father tells the story of this patient and his long and difficult medical history; father is concerned about future ability to care for the pt/son; support and presence given to the father
--- NOTE | 2022-06-02 13:28 | PCM.HP.STD ---
HPI - General General Date of Admission: 06/02/22 Date of Service: 06/02/22 Chief Complaint: left sided numbness HPI Narrative COOPER CROCKETT, is a 41 M who presents via the ED on 06/02/2022 with a complaint of lightheadedness, decreased LLE movement and left sided numbness. HE has a PMH which includes stroke in 2011 with left sided weakness. He started having these above mentioned symptoms about 30mins prior to him coming to the ED, when he was in his pain doctor's office. These symptoms are apparently recurrent and he was recently seen in [facility] ~ 3 days ago; he had a CT brain and CTA head and neck which were all unremarkable. He denied any associated mouth droop, palpitations or slurring of speech. He had no other symptoms and review of systems was otherwise negative. Vitals in the ED were BP of 115/78, MI of 62, RR of 11 and he was saturating at 97% on room air. CBC showed wbc of 11.65, Hb of 16.7 and platelets of 257. INR was 1, and chemistry was essentially unremarkable. CT of the brain showed encephalomalacia in the right temporal parietal lobes with ipsilateral dilatation of the right lateral ventricle in keeping with old infarction. CTA of the head and neck showed no hemodynamically significant stenosis. [facility] telestroke evaluated patient did not think he was a tPA candidate. It was recommended that patient be admitted to manage for TIA and stroke work-up. [facility], [facility] Medical History CVA (cerebral vascular accident) Migraines Home Medications aspirin 81 mg chewable tablet 81 mg PO DAILY@0800 02/28/19 [History Last Taken 06/02/22] atorvastatin 10 mg tablet 10 mg PO DAILY 02/28/19 [History Last Taken Unknown] lisinopril 10 mg tablet 10 mg PO DAILY 02/28/19 [History Last Taken 06/02/22] topiramate 100 mg tablet 100 mg PO BID 02/28/19 [History Last Taken 06/02/22] verapamil 120 mg 24 hr capsule,extended release 120 mg PO DAILY 02/28/19 [History Last Taken 06/02/22] escitalopram oxalate 20 mg tablet 20 mg PO DAILY 04/03/20 [History Last Taken 06/02/22] promethazine 25 mg tablet 25 mg PO Q6H PRN PRN Nausea #10 tabs 07/29/20 [Rx Last Taken Unknown] clopidogrel 75 mg tablet (Plavix) 75 mg PO DAILY 06/02/22 [History Last Taken 06/02/22] Allergy/AdvReac Type Severity Reaction Status Date / Time lithium Allergy Swelling Verified 06/02/22 11:51 Social History Smoking Status: Never smoker ROS Review of Systems ROS Unobtainable: Denies due to encephalopathy Constitutional Constitutional: Reports weakness; Denies anorexia, chills, fatigue or fever(s) Eyes Eyes: Denies change in vision ENT HEENT: Denies dysphagia, headache(s), nasal congestion, sinus pressure or sore throat Cardiovascular Cardiovascular: Denies chest pain, dyspnea on exertion, edema, lightheadedness, orthopnea, palpitations, paroxysmal nocturnal dyspnea, rapid heart rate or syncope Respiratory/Chest Respiratory/Chest: Denies cough, dyspnea, shortness of breath at rest or shortness of breath with exertion Gastrointestinal Gastrointestinal: Denies constipation, diarrhea, nausea or vomiting Genitourinary Genitourinary: Denies burning urination, dysuria or urinary frequency Musculoskeletal Musculoskeletal: Denies arthralgias Neurologic Neurologic: Reports focal weakness and numbness; Denies confusion, dizziness, headache(s), paresthesias, seizures or syncope Psychiatric Psychiatric: Denies anxiety or depression Hematologic/Lymphatic Hematologic/Lymphatic: Denies anemia Vital Signs Vital Signs Vital Signs: 06/02/22 11:49 06/02/22 12:02 06/02/22 12:17 Temperature 97.2 F L Temperature Source Temporal Pulse Rate 77 78 Respiratory Rate 18 14 Blood Pressure 128/87 H Blood Pressure Mean 100 Pulse Ox 96 Oxygen Delivery Method Room Air Room Air Room Air 06/02/22 12:00 06/02/22 12:11 06/02/22 12:41 Temperature Temperature Source Pulse Rate 67 66 70 Respiratory Rate 24 H 12 17 Blood Pressure 124/78 H 129/78 H 113/72 Blood Pressure Mean 93 95 85 Pulse Ox 97 93 96 Oxygen Delivery Method Room Air Room Air Room Air 06/02/22 13:11 Temperature Temperature Source Pulse Rate 62 Respiratory Rate 11 L Blood Pressure 115/78 Blood Pressure Mean 90 Pulse Ox 97 Oxygen Delivery Method Room Air Weight Weight: 285 lb 15.033 oz Body Mass Index (BMI) 37.7 Physical Exam Const alert, oriented x3 and no apparent distress General Appearance: cooperative HEENT normocephalic, head/scalp atraumatic, hearing grossly normal bilaterally and moist oral mucous membranes Mouth: oral and palatal mucosa normal and moist mucous membranes abnormal Eyes PERRL, EOMs intact bilaterally and conjunctivae normal Neck no lymphadenopathy, supple and no JVD Resp normal respiratory effort, no retractions, no use of accessory muscles and clear to auscultation bilaterally Cardio regular rate, regular rhythm, S1 normal heart sound, S2 normal heart sound and no murmurs GI normal to inspection, nondistended, normoactive bowel sounds, soft to palpation, non-tender and non-distended Extremity normal to inspection, full ROM and no clubbing, cyanosis or edema Neuro oriented x3, CN's II-XII intact bilaterally and moves all extremities Neuro Narrative: residual left sided weakness with power in LUE and LLE being 0/5; numbness in LUE, LLE and left side of face. Power is 5/5 in RUE and RLE Sensorium / Orientation: awake and alert Speech: speech normal Psych affect normal Results Lab / Micro Data Result Diagrams: 06/02/22 12:15 06/02/22 12:15 Labs: Laboratory Results - last 24 hr 06/02/22 12:06: POC Glucose 112 H 06/02/22 12:15: WBC 11.6 H, RBC 5.72, Hgb 16.7 H, Hct 50.3, MCV 87.9, MCH 29.2, MCHC 33.2, RDW Std Deviation 44.7 H, RDW Coeff of Tammy 14.0, Plt Count 257, MPV 10.8, Immature Gran % (Auto) 2.200 H, Neut % (Auto) 69.3, Lymph % (Auto) 21.0, Stephenson % (Auto) 6.3, Eos % (Auto) 0.3, Baso % (Auto) 0.9, Absolute Neuts (auto) 8.0 H, Absolute Lymphs (auto) 2.42, Nucleated RBC % 0 06/02/22 12:15: PT 13.3, INR 1.0, APTT 27.8 06/02/22 12:15: Sodium 142, Potassium 3.6, Chloride 115 H, Carbon Dioxide 20.0 L, Anion Gap 7, BUN 15, Creatinine 0.90, Estim Creat Clear Calc 120.84, Est GFR (MDRD) Af Amer 119, Est GFR (MDRD) Non-Af 99, BUN/Creatinine Ratio 16.7, Glucose 102, Calcium 9.1, Troponin I High Sens [address] 06/02/22 12:11 IMPRESSION: Encephalomalacia in the right temporal parietal lobes with ipsilateral dilatation of the right lateral ventricle. This is in keeping with old infarction. N.B. : The above Results were Read Back by Luke Goncalves MD to Isela Hsieh and understanding confirmed on 06/02/2022 12:33:56 (ET). Electronically Signed: Luke Goncalves MD at 12:35 EDT , ADDENDUM: 06/02/22 1242 IMPRESSION: Encephalomalacia in the right temporal parietal lobes with ipsilateral dilatation of the right lateral ventricle. This is in keeping with old infarction. N.B. : The above Results were Read Back by Luke Goncalves MD to Isela Hsieh and understanding confirmed on 06/02/2022 12:33:56 (ET). Electronically Signed: Luke Goncalves MD at 12:35 EDT , Head/Neck CTA 06/02/22 12:11 IMPRESSION: Normal CTA Head and neck with contrast. N.B. : The above Results were Read Back by Luke Goncalves MD to Isela Hsieh and understanding confirmed on 06/02/2022 12:42:58 (ET). Electronically Signed: Luke Goncalves MD at 12:44 EDT , ADDENDUM: 06/02/22 1250 IMPRESSION: Normal CTA Head and neck with contrast. N.B. : The above Results were Read Back by Luke Goncalves MD to Isela Hsieh and understanding confirmed on 06/02/2022 12:42:58 (ET). Electronically Signed: Luke Goncalves MD at 12:44 EDT , Assessment & Plan Assessment/Plan (1) Stroke-like symptom: PLAN: Plan #TIA admitted with left sided weakness and numbness. He had residual left sided weakness and numbness from previous stroke CTA head and neck showed no hemodynamically significant stenosis,a dn CT brain showed evidence of frontotemporal encephalomalacia due to previous stroke admit to PCU for MRI of the brain tomorrow if pain pump and pacemaker are MRI compatible continue on aspirin, plavix and high intensisty statin PT/OT consult fall precautions #Hypertension; on lisinopril and verapamil. Hold BP meds for permissive hypertension in case he has a stroke #History of migraines: on topiramate DVT prophylaxis: SCDs Code status: full code Charges/Coding Visit Charges OBSV E&M: 89713 Initial observation care L2
[2022-06-02] MEDS: Topiramate 100 MG Tablet PO (22:05)
[2022-06-02] MEDS: Atorvastatin Calcium 10 MG Tablet PO (22:05)
[2022-06-03] VITALS (18 sets, daily range): BP systolic 120–141; BP diastolic 78–108; PULSE 60–78; RESP 15–17; TEMP 35.9–36.8; O2SAT 96–100; BMI 36.5
[2022-06-03] MEDS: Acetaminophen 325 MG Tablet 650 MG PO ×3 (00:31→20:02)
--- NOTE | 2022-06-03 01:39 | NURSING ---
MD notified of pt reported loss of vision in left eye. NIHSS performed with 14 as result, a decline since previous. Vital signs were obtained and were largely unremarkable. MD then evaluated patient at bedside. Will consult neurology.
--- NOTE | 2022-06-03 01:59 | CT_ITS ---
STUDY: CT BRAIN WITHOUT CONTRAST REASON FOR EXAM: Male, 41 years old. Vision loss RADIATION DOSAGE (If Supplied By Facility): CTDIvol = ( 44.99 ) mGy, DLP = ( 829.85 ) mGycm TECHNIQUE: Transaxial CT imaging of the brain was performed without administration of intravenous contrast material. Individualized dose optimization techniques were used for this CT. COMPARISON: 06/02/2022 FINDINGS: There is no intra-/extra-axial fluid collection, mass effect, or midline shift. Large area of encephalomalacia is noted in the right frontotemporal parietal lobes. There is ex vacuo dilatation of the right lateral ventricle. The vargas/white matter junction is preserved. The basal cisterns are patent. Visualized paranasal sinuses and mastoid air cells are clear. The calvarium is intact. CT/Brain/Head without Contrast IMPRESSION: No acute intracranial finding. MRI may be obtained if clinically indicated. Large area of encephalomalacia in the right MCA territory. Electronically Signed: Shay Villarreal MD at 3:20 EDT ,
--- NOTE | 2022-06-03 01:59 | PN.HOSP_ITS ---
Hospitalist Note Contacted per patient RN at 1:39 with patient reported complete loss of vision from L eye. Evaluation of patient with noted was bilaterally reactive, equal, extraocular movements intact bilaterally, right-sided corneal reflex intact, absent to the left, reporting complete loss of vision in all bradley during evaluation, notes literally his vision is completely pitch black on the left. Given admission timeline earlier in the day the day prior will obtain CT head to be cautious. We will request neurology evaluation. From review of records upon presentation given the serial occurrences including 3 days prior similar events with evaluation at [place] with unremarkable work-up including normal CT head as well as CTA head and neck at that time patient was per telestroke [facility] deemed not a tPA candidate despite patient's NIH stroke score upon initial evaluation significantly elevated greater than 11. Also, will add request for ECHO, TSH, M ag, HgBA1c.
--- NOTE | 2022-06-03 02:02 | ECHOCS_ITS ---
Reason For Study: CVA Procedure This was a 2D Doppler, Color Flow transthoracic echocardiogram. The study was technically difficult. Unable to preform bubble study due to diminished windows. Contrast injection was performed. Exam performed portable in patient room. Left Ventricle Mild concentric left ventricular hypertrophy. Based upon the 2D echocardiographic and contrast enhanced images obtained there appears to be grossly normal left ventricular size, wall motion, and systolic function. The estimated ejection fraction is 55 %. Unable to assess diastolic dysfunction. Right Ventricle Based upon the 2D echocardiographic images obtained there appears to be grossly normal right ventricular size and systolic function. Atria The left atrium appears to be grossly normal. The right atrium appears to be grossly normal. No doppler evidence for ASD. Mitral Valve There is no mitral annular calcification. Normal mitral valve. Tricuspid Valve Normal tricuspid valve. Aortic Valve Trisinus/trileaflet aortic valve. Normal aortic valve. Pulmonic Valve The pulmonic valve is not well visualized. Great Vessels Moderately dilated aortic root. Pericardium/Pleural No pericardial effusion. Medication Diluted definity 4.5ml given slow IV push to enhance endocardial definition. MMode/2D Measurements & Calculations LVIDd: 4.5 cm IVSd: 1.3 cm Ao root diam: 4.7 cm LVIDs: 2.9 cm LVPWd: 1.4 cm FS: 35.0 % Time Measurements MV dec time: 0.26 sec Doppler Measurements & Calculations MV E max jj: 45.4 cm/sec MV dec slope: 202.2 cm/sec2 PA V2 max: 58.0 cm/sec MV A max jj: 52.6 cm/sec MV E/A: 0.86 ECHO/Echo Complete W/ Contrast Interpretation Summary The study was technically difficult. Contrast injection was performed. Based upon the 2D echocardiographic and contrast enhanced images obtained there appears to be grossly normal left ventricular size, wall motion, and systolic function. The estimated ejection fraction is 55 %. Mild concentric left ventricular hypertrophy. Moderately dilated aortic root. Unable to assess diastolic dysfunction. Ordering Physician: Thu Welch Performed By: Anna Marie Morrell RCS
--- NOTE | 2022-06-03 02:07 | TELEMED_ITS ---
[facility] Telemed has confirmed receipt of a request for visit. This document confirms receipt of the order initiating the consult. To find the results of the consultation, please view the patient's reports for the scanned Telemed Consult.
--- NOTE | 2022-06-03 04:03 | NURSING ---
[facility] Telemedicine consult completed with patient, RN at bedside. To call MD with recommendations.
[2022-06-03 04:19] LABS: Absolute Lymphocyte Count 2.69 X10^3/uL (0.83-4.51); Absolute Neutrophil Count 5.2 X10^3/uL (2.0-7.7); Basophil# 0.07 X10^3/uL; Basophil% 0.8 % (0-1); Eosinophil# 0.06 X10^3/uL; Eosinophils% 0.7 % (0-5); Hematocrit 47.5 % (40-54); Hemoglobin 15.7 g/dL (13.0-16.5); Lymphocyte # 2.69 X10^3/ul (0.83-4.51); Lymphocyte % 30.7 % (19-41); Mean Corp Hgb Conc 33.1 g/dL (32-36); Mean Corpuscular Hgb 29.2 pg (27.0-32.0); Mean Corpuscular Volume 88.3 fL (80-94); Mean Platelet Vol. 10.4 fl (6.2-12.0); Monocyte# 0.53 X10^3/uL; NRBC Flagged by Analyzer 0 % (0-5); Neutrophil % 59.3 % (47-70); Platelet Count 201 K/mm3 (150-450); RBC Distribution Width CV 14.3 % (11.6-14.6); RBC Distribution Width SD 45.4 fl (35.1-43.9); Red Blood Count 5.38 M/mm3 (4.6-6.2); White Blood Count 8.8 K/mm3 (4.4-11.0)
[2022-06-03 05:29] LABS: Anion Gap 6 (5-15); BUN 13 mg/dL (7-18); BUN/Creat Ratio 17.8 RATIO (10-20); Calcium,Total 8.5 mg/dL (8.5-10.1); Chloride 112 mmol/L (98-107); Cholesterol 83 mg/dL (200); Creatinine, Serum 0.73 mg/dL (0.70-1.30); EST Glomerular Filtration Rate 125 mL/min (>60); Est Glom Filt Rate - Afr Amer 151 mL/min (>60); Estimated Creatinine Clearance 148.98 ml/min; Glucose 109 mg/dL (74-106); High Density Lipoprotein 30 mg/dL; Potassium 3.5 mmol/L (3.5-5.1); Sodium Level 140 mmol/L (136-145); Triglycerides 105 mg/dL; Very Low Density Lipoprotein 21 mg/dL (5-40)
[2022-06-03 05:49] LABS: Magnesium 2.1 mg/dL (1.6-2.6); Thyroid Stim Hormone (TSH) 2.78 uIU/mL (0.358-3.74)
--- NOTE | 2022-06-03 07:44 | PN.HOSP_ITS ---
Subjective Subjective Seen and examined. H&P and overnight events noticed. Patient admitted with decreased left lower extremity strength movement, left- sided numbness on top of previous left-sided weakness from stroke in 2012. Symptoms are noticed recurrent as he had similar symptoms in Hospital about 3 days ago where he had a CT brain and CTA head and neck which were unremarkable. Patient was admitted in PCU. Later on the previous night about 2 AM patient had complete loss of vision in left eye and was evaluated by nighttime hospitalist. Patient not candidate of tPA as per evaluation of [facility] telestroke. Last night patient was evaluated by [facility] teleneurologist. The impression was no obvious source of plaque/trauma but thought to be more proximal. Needs echo, telemetry monitoring, high intensity statin and ophthalmology evaluation. And advised hypercoagulable work-up, Objective Data Objective Data Vital Signs: Vital Signs Temp Pulse Resp BP Pulse Ox O2 Del Method FiO2 96.8 F L 60 17 120/93 H 98 Room Air 30 06/03/22 06:00 06/03/22 06:00 06/03/22 06:00 06/03/22 06:00 06/03/22 07:14 06/03/22 07:14 06/02/22 22:18 Oxygen Delivery Method Room Air Weight: 276 lb 10.882 oz Body Mass Index (BMI) 36.5 Intake & Output: Intake and Output for Last 24 Hours 06/01/22 06/02/22 06/03/22 23:59 23:59 23:59 Intake Total 222 / 222 Output Total 425 / 425 Balance -203 / -203 Lab / Micro Data Result Diagrams: 06/03/22 04:09 06/03/22 04:09 Labs: Laboratory Results - last 24 hr 06/02/22 12:06: POC Glucose 112 H 06/02/22 12:15: WBC 11.6 H, RBC 5.72, Hgb 16.7 H, Hct 50.3, MCV 87.9, MCH 29.2, MCHC 33.2, RDW Std Deviation 44.7 H, RDW Coeff of Tammy 14.0, Plt Count 257, MPV 10.8, Immature Gran % (Auto) 2.200 H, Neut % (Auto) 69.3, Lymph % (Auto) 21.0, [place] % (Auto) 6.3, Eos % (Auto) 0.3, Baso % (Auto) 0.9, Absolute Neuts (auto) 8.0 H, Absolute Lymphs (auto) 2.42, Nucleated RBC % 0 06/02/22 12:15: PT 13.3, INR 1.0, APTT 27.8 06/02/22 12:15: Sodium 142, Potassium 3.6, Chloride 115 H, Carbon Dioxide 20.0 L , Anion Gap 7, BUN 15, Creatinine 0.90, Estim Creat Clear Calc 120.84, Est GFR (MDRD) Af Amer 119, Est GFR (MDRD) Non-Af 99, BUN/Creatinine Ratio 16.7, Glucose 102, Calcium 9.1, Troponin I High Sens 6 06/03/22 04:09: WBC 8.8, RBC 5.38, Hgb 15.7, Hct 47.5, MCV 88.3, MCH 29.2, MCHC 33.1, RDW Std Deviation 45.4 H, RDW Coeff of Tammy 14.3, Plt Count 201, MPV 10.4, Immature Gran % (Auto) 2.500 H, Neut % (Auto) 59.3, Lymph % (Auto) 30.7, [place] % (Auto) 6.0, Eos % (Auto) 0.7, Baso % (Auto) 0.8, Absolute Neuts (auto) 5.2, Absolute Lymphs (auto) 2.69, Nucleated RBC % 0 06/03/22 04:09: Sodium 140, Potassium 3.5, Chloride 112 H, Carbon Dioxide 22.0, Anion Gap 6, BUN 13, Creatinine 0.73, Estim Creat Clear Calc 148.98, Est GFR (MDRD) Af Amer 151, Est GFR (MDRD) Non-Af 125, BUN/Creatinine Ratio 17.8, Glucose 109 H, Calcium 8.5, Triglycerides 105, Cholesterol 83, LDL Cholesterol 32, VLDL Cholesterol 21, HDL Cholesterol 30 L 06/03/22 04:09: Magnesium 2.1, TSH 2.78 Radiography Diagnostic Testing: Radiology Impression Brain CT 06/02/22 12:11 IMPRESSION: Encephalomalacia in the right temporal parietal lobes with ipsilateral dilatation of the right lateral ventricle. This is in keeping with old infarction. N.B. : The above Results were Read Back by Luke Goncalves MD to Isela Hsieh and understanding confirmed on 06/02/2022 12:33:56 (ET). Electronically Signed: Luke Goncalves MD at 12:35 EDT , ADDENDUM: 06/02/22 1242 IMPRESSION: Encephalomalacia in the right temporal parietal lobes with ipsilateral dilatation of the right lateral ventricle. This is in keeping with old infarction. N.B. : The above Results were Read Back by Luke Goncalves MD to Isela Hsieh and understanding confirmed on 06/02/2022 12:33:56 (ET). Electronically Signed: Luke Goncalves MD at 12:35 EDT , Head/Neck CTA 06/02/22 12:11 IMPRESSION: Normal CTA Head and neck with contrast. N.B. : The above Results were Read Back by Luke Goncalves MD to Isela Hsieh and understanding confirmed on 06/02/2022 12:42:58 (ET). Electronically Signed: Luke Goncalves MD at 12:44 EDT , ADDENDUM: 06/02/22 1250 IMPRESSION: Normal CTA Head and neck with contrast. N.B. : The above Results were Read Back by Luke Goncalves MD to Isela Hsieh and understanding confirmed on 06/02/2022 12:42:58 (ET). Electronically Signed: Luke Goncalves MD at 12:44 EDT , Chest X-Ray 06/02/22 12:53 IMPRESSION: Borderline cardiomegaly. The lungs are clear. Electronically Signed: Luke Goncalves MD at 13:24 EDT , Brain CT 06/03/22 01:59 IMPRESSION: No acute intracranial finding. MRI may be obtained if clinically indicated. Large area of encephalomalacia in the right MCA territory. Electronically Signed: Shay Villarreal MD at 3:20 EDT , Assessment & Plan Assessment/Plan (1) Stroke-like symptom: PLAN: Plan #TIA * admitted with left sided weakness and numbness. He had residual left sided weakness and numbness from previous stroke * CTA head and neck showed no hemodynamically significant stenosis,a dn CT brain showed evidence of frontotemporal encephalomalacia due to previous stroke * admit to PCU * for MRI of the brain tomorrow if pain pump and pacemaker are MRI compatible * continue on aspirin, plavix and high intensisty statin * PT/OT consult * fall precautions * #Hypertension; on lisinopril and verapamil. Hold BP meds for permissive hypertension in case he has a stroke #History of migraines: on topiramate DVT prophylaxis: SCDs Code status: full code
[2022-06-03] MEDS: Aspirin 81 MG TAB.CHEW PO (08:29)
[2022-06-03] MEDS: Escitalopram Oxalate 20 MG Tablet PO (08:29)
[2022-06-03] MEDS: Topiramate 100 MG Tablet PO ×2 (08:29→21:10)
[2022-06-03] MEDS: Clopidogrel Bisulfate 75 MG Tablet PO (08:29)
--- NOTE | 2022-06-03 08:56 | EKG12_ITS ---
Test Reason : Blood Pressure : / mmHG Vent. Rate : 060 BPM Atrial Rate : 060 BPM P-R Int : 194 ms QRS Dur : 120 ms QT Int : 440 ms P-R-T Axes : 004 -07 042 degrees QTc Int : 440 ms Atrial-paced rhythm Left ventricular hypertrophy with QRS widening ( R in aVL , Alek product ) Abnormal ECG Confirmed by ERNIE SILVA, JEREMIAS ([id number]), editor greeting card VALENTINA ALONZO ([id number]) on 06/04/2022 9:52:33 AM Referred By: JOSE Confirmed By:JEREMIAS KLEIN MD
--- NOTE | 2022-06-03 09:07 | CT_ITS ---
STUDY: CT BRAIN WITHOUT CONTRAST REASON FOR EXAM: Male, 41 years old. Stroke RADIATION DOSAGE (If Supplied By Facility): CTDIvol = ( 44.99 ) mGy, DLP = ( 829.85 ) mGycm TECHNIQUE: Transaxial CT imaging of the brain was performed without administration of intravenous contrast material. Individualized dose optimization techniques were used for this CT. COMPARISON: Comparison is made with prior study dated 06/03/2022 at 2:26 AM. FINDINGS: Normal soft tissue structures. Normal calvarium. Stable encephalomalacia involving the right temporal frontal parietal lobes in keeping with old infarction. Normal white matter tracts of the cerebral hemispheres. Normal basal ganglia and thalami. Normal brainstem. Normal cerebellum. There is no intracranial hemorrhage. There are no findings of an acute ischemic infarction. Normal visualized paranasal sinuses. CT/Brain/Head without Contrast IMPRESSION: Stable examination. Electronically Signed: Luke Goncalves MD at 10:44 EDT ,
--- NOTE | 2022-06-03 09:15 | PN.HOSP_ITS ---
Documented by User: Cathy Tang NP-C 06/03/22 10:36 Subjective Subjective Patient seen and examined. Patient sitting in bed no distress noted. Patient states that his vision has improved. Objective Data Objective Data Vital Signs: Vital Signs Temp Pulse Resp BP Pulse Ox O2 Del Method FiO2 97.7 F L 60 15 126/91 H 99 Room Air 30 06/03/22 08:25 06/03/22 08:25 06/03/22 08:25 06/03/22 08:25 06/03/22 08:25 06/03/22 08:25 06/02/22 22:18 Oxygen Delivery Method Room Air Weight: 276 lb 10.882 oz Body Mass Index (BMI) 36.5 Intake & Output: Intake and Output for Last 24 Hours 06/01/22 06/02/22 06/03/22 23:59 23:59 23:59 Intake Total 222 / 222 Output Total 425 / 425 Balance -203 / -203 Lab / Micro Data Result Diagrams: 06/03/22 04:09 06/03/22 04:09 Labs: Laboratory Results - last 24 hr 06/02/22 12:06: POC Glucose 112 H 06/02/22 12:15: WBC 11.6 H, RBC 5.72, Hgb 16.7 H, Hct 50.3, MCV 87.9, MCH 29.2, MCHC 33.2, RDW Std Deviation 44.7 H, RDW Coeff of Tammy 14.0, Plt Count 257, MPV 10.8, Immature Gran % (Auto) 2.200 H, Neut % (Auto) 69.3, Lymph % (Auto) 21.0, [place] % (Auto) 6.3, Eos % (Auto) 0.3, Baso % (Auto) 0.9, Absolute Neuts (auto) 8.0 H, Absolute Lymphs (auto) 2.42, Nucleated RBC % 0 06/02/22 12:15: PT 13.3, INR 1.0, APTT 27.8 06/02/22 12:15: Sodium 142, Potassium 3.6, Chloride 115 H, Carbon Dioxide 20.0 L , Anion Gap 7, BUN 15, Creatinine 0.90, Estim Creat Clear Calc 120.84, Est GFR (MDRD) Af Amer 119, Est GFR (MDRD) Non-Af 99, BUN/Creatinine Ratio 16.7, Glucose 102, Calcium 9.1, Troponin I High Sens 6 06/03/22 04:09: WBC 8.8, RBC 5.38, Hgb 15.7, Hct 47.5, MCV 88.3, MCH 29.2, MCHC 33.1, RDW Std Deviation 45.4 H, RDW Coeff of Tammy 14.3, Plt Count 201, MPV 10.4, Immature Gran % (Auto) 2.500 H, Neut % (Auto) 59.3, Lymph % (Auto) 30.7, [place] % (Auto) 6.0, Eos % (Auto) 0.7, Baso % (Auto) 0.8, Absolute Neuts (auto) 5.2, Absolute Lymphs (auto) 2.69, Nucleated RBC % 0 06/03/22 04:09: Sodium 140, Potassium 3.5, Chloride 112 H, Carbon Dioxide 22.0, Anion Gap 6, BUN 13, Creatinine 0.73, Estim Creat Clear Calc 148.98, Est GFR (MDRD) Af Amer 151, Est GFR (MDRD) Non-Af 125, BUN/Creatinine Ratio 17.8, Glucose 109 H, Calcium 8.5, Triglycerides 105, Cholesterol 83, LDL Cholesterol 32, VLDL Cholesterol 21, HDL Cholesterol 30 L 06/03/22 04:09: Magnesium 2.1, TSH 2.78 Radiography Diagnostic Testing: Radiology Impression Brain CT 06/02/22 12:11 IMPRESSION: Encephalomalacia in the right temporal parietal lobes with ipsilateral dilatation of the right lateral ventricle. This is in keeping with old infarction. N.B. : The above Results were Read Back by Luke Goncalves MD to Isela Hsieh and understanding confirmed on 06/02/2022 12:33:56 (ET). Electronically Signed: Luke Goncalves MD at 12:35 EDT , ADDENDUM: 06/02/22 1242 IMPRESSION: Encephalomalacia in the right temporal parietal lobes with ipsilateral dilatation of the right lateral ventricle. This is in keeping with old infarction. N.B. : The above Results were Read Back by Luke Goncalves MD to Isela Hsieh and understanding confirmed on 06/02/2022 12:33:56 (ET). Electronically Signed: Luke Goncalves MD at 12:35 EDT , Head/Neck CTA 06/02/22 12:11 IMPRESSION: Normal CTA Head and neck with contrast. N.B. : The above Results were Read Back by Luke Goncalves MD to Isela Hsieh and understanding confirmed on 06/02/2022 12:42:58 (ET). Electronically Signed: Luke Goncalves MD at 12:44 EDT , ADDENDUM: 06/02/22 1250 IMPRESSION: Normal CTA Head and neck with contrast. N.B. : The above Results were Read Back by Luke Goncalves MD to Isela Hsieh and understanding confirmed on 06/02/2022 12:42:58 (ET). Electronically Signed: Luke Goncalves MD at 12:44 EDT , Chest X-Ray 06/02/22 12:53 IMPRESSION: Borderline cardiomegaly. The lungs are clear. Electronically Signed: Luke Goncalves MD at 13:24 EDT , Brain CT 06/03/22 01:59 IMPRESSION: No acute intracranial finding. MRI may be obtained if clinically indicated. Large area of encephalomalacia in the right MCA territory. Electronically Signed: Shay Villarreal MD at 3:20 EDT , Physical Exam Const alert, oriented x3 and no apparent distress General Appearance: cooperative HEENT normocephalic, head/scalp atraumatic and moist oral mucous membranes Eyes conjunctivae normal Neck no lymphadenopathy and supple Resp normal respiratory effort and clear to auscultation bilaterally Cardio regular rate, regular rhythm, S1 normal heart sound and S2 normal heart sound GI normal to inspection, nondistended, normoactive bowel sounds, soft to palpation and non-tender Extremity normal to inspection, full ROM and no clubbing, cyanosis or edema Neuro oriented x3 Neuro Narrative: residual left sided weakness with power in LUE and LLE being 0/5; numbness in LUE, LLE and left side of face. Power is 5/5 in RUE and RLE Sensorium / Orientation: awake and alert Speech: speech normal Psych affect normal Assessment & Plan Assessment/Plan (1) Stroke-like symptom: PLAN: Plan 1. Rule out stroke -Patient had vision changes overnight which patient feels has improved. -Repeat CT ordered as MRI unable to be done due to patient's multiple implantable devices -Hypercoagulable studies pending -Ophthalmology consulted, Dr. Gifford to see patient -Following initial evaluation of patient this morning patient complained of chest pain. EKG was obtained which showed atrial paced rhythm. Troponins ordered initial troponin 7. -PT and OT to evaluate and treat 2. Hypertension -Restart verapamil, isosorbide, lisinopril. -Vital signs per protocol 3. Depression and anxiety -Continue Abilify, BuSpar, Trintellix 4. Migraines -Continue Topamax DVT prophylaxis-SCDs This patient was seen by AUGIE Paris under the supervision of Dr. Linares. 13 minutes spent in clinical coordination of patient's plan of care. Documented by User: Dr. Michele Linares MD 06/03/22 13:59 Subjective Subjective Patient seen and examined. Patient sitting in bed no distress noted. Patient states that his vision has improved. Seen and examined. H&P and overnight events noticed. Patient admitted with decreased left lower extremity strength movement, left- sided numbness on top of previous left-sided weakness from stroke in 2012.? Symptoms are noticed recurrent as he had similar symptoms in Hospital about 3 days ago where he had a CT brain and CTA head and neck which were unremarkable.? Patient was admitted in PCU. Later on the previous night about 2 AM patient had complete loss of vision in left eye and was evaluated by nighttime hospitalist.? Patient not candidate of tPA as per evaluation of [facility] telestroke.? Last night patient was evaluated by [facility] teleneurologist.? The impression was no obvious source of plaque/trauma but thought to be more proximal.? Needs echo, telemetry monitoring, high intensity statin and ophthalmology evaluation.? And advised hypercoagulable work-up, Objective Data Lab / Micro Data Result Diagrams: 06/03/22 04:09 06/03/22 04:09 Physical Exam Narrative Patient also complained of chest pain in the morning. Twelve-lead EKG was done which shows atrial sensed paced rhythm. LVH with repolarization. When I saw the patient Deanna's chest pain has resolved. Physical exam General: Awake. Alert. Oriented x3. HEENT: Central vision intact. On visual confrontation test, left upper quadrant impaired. Atraumatic, PERRLA, EOMI, Normocephalic Oral: No Gingival or Mucosal Lesions/ Ulcerations Neck: Supple, No JVD, Negative Carotid Bruits Lungs: Air entry diminished in bilateral lung bases. No crepitation/rhonchi Cardiovascular: Regular rate, Regular Rhythm, Normal S1, Normal S2, No murmurs Abdomen: Bowel Sounds Present, Soft, Non Tender, Non-Distended : No renal angle tenderness. No suprapubic tenderness. Extremities: No edema, Capillary Refill Less than 3 Seconds Skin: No rashes, No breakdown Musculoskeletal: No Tenderness to Palpation of Joints or Extremities Neurological: Complete neuro exam could not be verified as patient response changes. Left-sided upper and lower extremity weakness with contracture. Mild amnesia, memory lapses. Hard time to recollect. Speech normal at baseline, no dysarthria dysphonia. Psych/Mental Status: Normal Affect, Appropriate. Assessment & Plan Assessment/Plan (1) Stroke-like symptom: PLAN: Plan 1. Rule out stroke -Patient had vision changes overnight which patient feels has improved. -Repeat CT ordered as MRI unable to be done due to patient's multiple i mplantable devices -Hypercoagulable studies pending -Ophthalmology consulted, Dr. Gifford to see patient -Following initial evaluation of patient this morning patient complained of chest pain. EKG was obtained which showed atrial paced rhythm. Troponins ordered initial troponin 7. -PT and OT to evaluate and treat 2. Hypertension -Restart verapamil, isosorbide, lisinopril. -Vital signs per protocol 3. Depression and anxiety -Continue Abilify, BuSpar, Trintellix 4. Migraines -Continue Topamax DVT prophylaxis-SCDs This patient was seen by AUGIE Paris under the supervision of Dr. Linares. 15 minutes spent in clinical coordination of patient's plan of care. This patient was seen in conjunction with ROSEMARIE Morgan. I have independently interviewed and examined the patient and reviewed pertinent history, examination findings, laboratory and plan of management. I have reviewed the note and agree with the documented findings with the few additional points. In brief, patient with history of previous stroke in 2012 admitted for left- sided weakness and numbness. Patient had initial work-up in the ED including CT brain and CTA head and neck which were unremarkable. On offset printing operator in PCU patient rhythm is atrial sensed pacemaker rhythm at 60 bpm. About 2 AM on patient had complete loss of vision in left eye. Patient not candidate for tPA as per evaluation of [facility] neurologist. Patient was also evaluated by [facility] neurologist.The impression was no obvious source of plaque/trauma but thought to be more proximal.? Needs echo, telemetry monitoring, high intensity statin and ophthalmology evaluation,and advised hypercoagulable work-up. 06/03/2022: 1. Concern of new stroke on baseline old right temporal, frontal and parietal lobe ischemic stroke: Patient had hypercoagulable work-up pending. 2D echo was done report pending. Discussed with cardiology Dr. Nugent mild aortic root dilatation otherwise no significant valvular abnormality. Patient was referred to systems admin and retinal exam normal. Paint Stripper impression was may be retinal artery vasospasm. MRI could not be done as patient has pacemaker and multiple implanted devices. Repeat CT head was done and reported no acute further change but a stable examination. Old infarction of right temporal frontal parietal lobes. Patient does not have urinary or fecal incontinence. No burning micturition. 2. Atypical chest pain, patient also had nonspecific chest pain. Twelve-lead EKG shows paced rhythm. Serial high-sensitivity troponins are normal. ACS ruled out. 3. Other comorbidities include hypertension, anxiety and depression and migraine: Home medication reconciliation done. I have discussed my assessment with ROSEMARIE Morgan and orders have been reviewed. Total time of the visit including total time spent in counseling or coordination of care, (more than 50% of the total time, spent in obtaining medical information from nurses and other ancillary care providers,explaining to the patient about labs, imaging, diagnosis and management of active complex medical conditions), discussion with automotive accessory installer and neurologist, review of labs and imaging is 45 minutes. I spent 30 minutes and ROSEMARIE Gilliam spent 15 minutes Charges/Coding Visit Charges OBSV E&M: 42007 Initial observation care L3
[2022-06-03 09:51] LABS: Hemoglobin A1c 5.8 % (3.8-5.6)
[2022-06-03 10:06] LABS: Troponin-I HS 7 pg/mL (3.0-78.0)
--- NOTE | 2022-06-03 10:08 | CASEMGMT ---
Call from Christa pt's CM, thru [facility] waiver. She states that pt has nursing(1x/week), aide(3x/week), and therapy off/on thru [facility], [place] office [phone]. Pt's nurse thru [facility] is Nicky. MAR Goodwin[facility], contact info is [phone] and she would like to be updated on dispo plan. Devante SW aware, voices understanding. Per Christa, pt's father is not able to transfer pt at all. She states pt has been to SNF skilled nursing in past. CM to follow for therapy notes and any further d/c planning/needs. SStsara FERRELL CM
[2022-06-03 11:46] LABS: Troponin-I HS 7 pg/mL (3.0-78.0)
--- NOTE | 2022-06-03 12:06 | CHAPLAIN ---
Type of Pastoral Visit _x__ Initial Visit ___ Follow-up Visit ___ On-call Visit ___ General Patient Visit ___ Spiritual Assessment ___ Family Conference ___ Bereavement ___ Rapid Response ___ Code Blue ___ Other (describe below) Pastoral Care Referral From _x__ Patient ___ Family ___ Nurse ___ Physician ___ Dry Plasterer Helper ___ Automatic Thread Winder ___ Other (describe below) Sacrament/Intervention _x__ Active listening ___ Anointing ___ Taoist ___ Bereavement ___ Communion _x__ Radha exploration ___ _x__ Life review _x__ Prayer ___ Reconciliation ___ Sacrament of Sick _x__ Supportive presence ___ Wedding ___ Other (describe below) Pastoral Comments first face to face visit with this patient although this emergency response technician was present when he came to ED yesterday and had conversation with father of pt; pt gives some review of his stroke history at a young age; pt speaks of how he gets through it all a day at a time; pt refers to biblical passage about strength that is his daily verse and gives him inspiration; pt family unit is very small with some members out of state; pt says his greatest source of help is God; pt welcomes spiritual care and prayer; time given to listen and affirm
--- NOTE | 2022-06-03 12:10 | CASEMGMT ---
Therapy is recommending HHC and pt is agreeable to for PT/OT as he already has CCN coming in as well. Pt provided list of HHC providers including quality and resource use data and consistent with the pt's preferred geographic region, medical needs, and insurance network. Pt aware to choose 1st 3 choices and this RN CM will check back, voices understanding. SStaten RN CM
--- NOTE | 2022-06-03 12:55 | CON.PCM_ITS ---
Assessment & Plan Assessment/Plan (1) Vision loss of left eye: PLAN: No pathology found on exam. No evidence of CRAO / BRAO or retinal de tachment DDx includes nonphysiologic, retinal vasospasm, spontaneously resolved CRAO / BRAO, left homonymous defect from stroke (however this was not found on CVF exam) Recommend thorough work-up for stroke in young person including hypercoagulability work-up, vasculitis / inflammatory work-up. Follow-up as outpatient with his local diffusion operator or with me at [facility] ~1 month, sooner prn. Please call with any questions or concerns. I will speak with the primary in patient provider. call center agent cell phone HPI Consult Data Date of Consult: 06/03/22 HPI Narrative Reason for Consultation: Sudden painless vision loss left eye HPI Narrative: COOPER CROCKETT, is a 41 M who is admitted for stroke like symptoms including worsened left sided weakness and dizziness per patient. History of CVA 2011 with residual left sided weakness. Reported sudden onset painless complete vision loss OS - reports improvement since onset, but still blurry. Was evaluated by in house hospitalist and exam was noted to be normal other than decreased corneal light reflex OS. Denies eye pain, flashing lights, floaters or diplopia Ocular history - Reports cataract surgery in [facility] O[facility], unsure of date or surgeon. Wears glasses. [facility] Medical History (Updated 06/03/22 @ 13:[address] Darwin Gifford MD) CVA (cerebral vascular accident) Migraines Pseudophakia of both eyes Home Medications aspirin 81 mg chewable tablet 81 mg PO DAILY@0800 02/28/19 [History Last Taken 06/02/22] atorvastatin 10 mg tablet 80 mg PO DAILY 02/28/19 [History Last Taken Unknown] lisinopril 10 mg tablet 10 mg PO DAILY 02/28/19 [History Last Taken 06/02/22] verapamil 120 mg 24 hr capsule,extended release 120 mg PO DAILY 02/28/19 [H istory Last Taken 06/02/22] escitalopram oxalate 20 mg tablet 20 mg PO DAILY 04/03/20 [History Last Taken 06/02/22] promethazine 25 mg tablet 25 mg PO Q6H PRN PRN Nausea #10 tabs 07/29/20 [Rx Last Taken Unknown] aripiprazole 10 mg tablet (Abilify) 10 mg PO QHS 06/02/22 [History Last Taken Unknown] buspirone 15 mg tablet 15 mg PO BID 06/02/22 [History Last Taken Unknown] cetirizine 10 mg tablet (Zyrtec) 10 mg PO DAILY 06/02/22 [History Last Taken Unknown] clopidogrel 75 mg tablet (Plavix) 75 mg PO DAILY 06/02/22 [History Last Taken 06/02/22] gabapentin 100 mg capsule 100 mg PO TID 06/02/22 [History Last Taken Unknown] isosorbide mononitrate 30 mg tablet,extended release 24 hr 30 mg PO DAILY 0 06/02/22 [History Last Taken Unknown] linaclotide 145 mcg capsule (Linzess) 145 mcg PO DAILY 06/02/22 [History Last Taken Unknown] oxybutynin chloride 15 mg tablet,extended release 24 hr 15 mg PO DAILY 06/02/22 [History Last Taken Unknown] pantoprazole 40 mg tablet,delayed release 40 mg PO BID 06/02/22 [History Last Taken Unknown] topiramate 50 mg tablet 50 mg PO BID 06/02/22 [History Last Taken Unknown] verapamil 120 mg tablet,extended release 120 mg PO DAILY 06/02/22 [History Last Taken Unknown] vortioxetine 20 mg tablet (Trintellix) 20 mg PO QHS 06/02/22 [History Last Taken Unknown] Allergy/AdvReac Type Severity Reaction Status Date / Time lithium Allergy Swelling Verified 06/02/22 11:51 unable to obtain (Cataract surgery OU) Social History Smoking Status: Never smoker Addt'l Information Additional Findings: Denies use of alcohol, cocaine, IV drugs. Smoked cigaretts for 2 weeks many years ago ROS Constitutional Constitutional: Denies anorexia or body ache(s) Eyes Eyes: Reports blurry vision and change in vision Cardiovascular Cardiovascular: Denies chest pain Respiratory/Chest Respiratory/Chest: Denies shortness of breath at rest Gastrointestinal Gastrointestinal: Denies abdominal pain Genitourinary Genitourinary: Denies abdominal discomfort Musculoskeletal Musculoskeletal: Reports abnormal gait and limited range of motion Neurologic Neurologic: Reports abnormal gait and dizziness Physical Exam Narrative Near VAcc (glasses) 20/20 OD 20/50 OS Pupils 5 to 3 mm OD, 5.5 to 3.5 mm OS, no rAPD OU IOP soft to palpation OU Full motility OU CVF full to finger counting OU Eyelids normal OU, no ptosis Conjunctiva and sclera white and quiet OU Cornea clear OU AC deep and formed OU Lens PCIOL OU Dilated with 1 drop 1% tropicamide OU 1309 06/03/22 Vitreous Clear OU Optic disc [place], sharp, no heme, no pallor, C:D 0.4 OU Macula Flat OU - no retinal whitening, no gracia red spot Vessels normal course and caliber OU - no plaque or emboli in either eye Periphery attached OU. No retinal tears, holes, or detachments either eye Const alert and oriented x3 General Appearance: cooperative Orientation / Consciousness: awake, oriented to person, oriented to place and oriented to time Lab / Micro Data Result Diagrams: 06/03/22 04:09 06/03/22 04:09 Labs: Laboratory Results - last 24 hr 06/03/22 04:09: WBC 8.8, RBC 5.38, Hgb 15.7, Hct 47.5, MCV 88.3, MCH 29.2, MCHC 33.1, RDW Std Deviation 45.4 H, RDW Coeff of Tammy 14.3, Plt Count 201, MPV 10.4, Immature Gran % (Auto) 2.500 H, Neut % (Auto) 59.3, Lymph % (Auto) 30.7, [place] % (Auto) 6.0, Eos % (Auto) 0.7, Baso % (Auto) 0.8, Absolute Neuts (auto) 5.2, Absolute Lymphs (auto) 2.69, Nucleated RBC % 0 06/03/22 04:09: Sodium 140, Potassium 3.5, Chloride 112 H, Carbon Dioxide 22.0, Anion Gap 6, BUN 13, Creatinine 0.73, Estim Creat Clear Calc 148.98, Est GFR (MDRD) Af Amer 151, Est GFR (MDRD) Non-Af 125, BUN/Creatinine Ratio 17.8, Glucose 109 H, Calcium 8.5, Triglycerides 105, Cholesterol 83, LDL Cholesterol 32, VLDL Cholesterol 21, HDL Cholesterol 30 L 06/03/22 04:09: Magnesium 2.1, TSH 2.78 06/03/22 04:09: Hemoglobin A1c 5.8 H 06/03/22 09:22: Troponin I High Sens 7 06/03/22 11:15: Troponin I High Sens 7 Radiology Impression Chest X-Ray 06/02/22 12:53 IMPRESSION: Borderline cardiomegaly. The lungs are clear. Electronically Signed: Luke Goncalves MD at 13:24 EDT , Brain CT 06/03/22 01:59 IMPRESSION: No acute intracranial finding. MRI may be obtained if clinically indicated. Large area of encephalomalacia in the right MCA territory. Electronically Signed: Shay Villarreal MD at 3:20 EDT , Brain CT 06/03/22 09:07 IMPRESSION: Stable examination. Electronically Signed: Luke Goncalves MD at 10:44 EDT ,
[2022-06-03] MEDS: Gabapentin 100 MG Capsule PO ×2 (13:24→21:10)
--- NOTE | 2022-06-03 15:22 | CASEMGMT ---
This RN CM to room with KIM form, explanation done-pt voices understanding, and signs KIM form. Original to chart and copy to pt. GHASSAN MANUEL discussed dispo plan with pt/father(via speakerphone) and pt admits that he is not back to his baseline for activity and will do whatever his dad recommends. Pt's father states that if pt is not back to normal activity then he will have to go to SNF at discharge. Pt/father would like referral sent to [facility] as he has been there in the past and list of other in-network SNF's with quality and resource use data consistent with pt's geographic region, medical needs, and insurance network still provided to pt. ted Goodwin/tonie planning asst, aware of need for referral to [facility] and will send via [facility] MANUEL to follow. Joe FERRELL CM
--- NOTE | 2022-06-03 15:38 | PCM.HOSP.N ---
Hospitalist Note Notified by Yen FERRELL that patient is having chest pain and left eye blurry vision. Discussed with Dr. Linares. No new orders at this time.
--- NOTE | 2022-06-03 15:40 | CASEMGMT ---
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 Will follow up. Plan: [place] [facility], Waiting Acceptance Christa Tran Discharge Baseboard Heating Installer
[2022-06-03] MEDS: Ondansetron 4 MG/2 ML Vial IV (18:47)
[2022-06-03 19:22] LABS: Troponin-I HS 6 pg/mL (3.0-78.0)
[2022-06-03] MEDS: Nitroglycerin (INPATIENT USE) 0.4 MG TAB.SUBL SL ×2 (19:59→20:04)
[2022-06-03] MEDS: Pantoprazole Sodium 40 MG Tablet PO (21:10)
[2022-06-03] MEDS: VORTIOXETINE HYDROBROMIDE 20 MG TABLET PO (21:10)
[2022-06-03] MEDS: Atorvastatin Calcium 10 MG Tablet PO (21:10)
[2022-06-03] MEDS: busPIRone 15 MG TABLET PO (21:10)
[2022-06-03] MEDS: ARIPiprazole 10 MG Tablet PO (21:10)
[2022-06-04] VITALS (8 sets, daily range): BP systolic 108–129; BP diastolic 78–94; PULSE 58–78; RESP 14–18; TEMP 36.6–37; O2SAT 98; BMI 36.5
[2022-06-04] MEDS: Acetaminophen 325 MG Tablet 650 MG PO (05:15)
[2022-06-04] MEDS: Gabapentin 100 MG Capsule PO ×2 (05:15→13:49)
[2022-06-04 06:57] LABS: Absolute Lymphocyte Count 2.39 X10^3/uL (0.83-4.51); Absolute Neutrophil Count 4.9 X10^3/uL (2.0-7.7); Basophil# 0.07 X10^3/uL; Basophil% 0.9 % (0-1); Eosinophil# 0.08 X10^3/uL; Hematocrit 48.3 % (40-54); Hemoglobin 15.9 g/dL (13.0-16.5); Lymphocyte # 2.39 X10^3/ul (0.83-4.51); Lymphocyte % 29.7 % (19-41); Mean Corp Hgb Conc 32.9 g/dL (32-36); Mean Corpuscular Hgb 29.3 pg (27.0-32.0); Mean Platelet Vol. 10.3 fl (6.2-12.0); Monocyte# 0.46 X10^3/uL; Monocyte% 5.7 % (0-10); NRBC Flagged by Analyzer 0 % (0-5); Neutrophil # 4.92 X10^3/uL (2.7-7.7); Platelet Count 201 K/mm3 (150-450); RBC Distribution Width SD 44.8 fl (35.1-43.9); Red Blood Count 5.43 M/mm3 (4.6-6.2); White Blood Count 8.1 K/mm3 (4.4-11.0)
[2022-06-04 07:26] LABS: AST(SGOT) 24 U/L (15-37); Alanine Aminotransfer ALT/SGPT 78 U/L (16-61); Albumin, Serum 3.5 g/dL (3.2-5.0); Alkaline Phosphatase 173 U/L (45-117); Anion Gap 4 (5-15); BUN 14 mg/dL (7-18); BUN/Creat Ratio 17.4 RATIO (10-20); Calcium,Total 8.8 mg/dL (8.5-10.1); Chloride 111 mmol/L (98-107); Creatinine, Serum 0.81 mg/dL (0.70-1.30); EST Glomerular Filtration Rate 111 mL/min (>60); Est Glom Filt Rate - Afr Amer 135 mL/min (>60); Estimated Creatinine Clearance 134.26 ml/min; Globulin 3.4 g/dL (2.2-4.2); Glucose 105 mg/dL (74-106); Potassium 3.5 mmol/L (3.5-5.1); Protein, Total 6.9 g/dL (6.4-8.2); Sodium Level 140 mmol/L (136-145)
[2022-06-04] MEDS: Escitalopram Oxalate 20 MG Tablet PO (09:59)
[2022-06-04] MEDS: Isosorbide Mononitrate 30 MG Tablet PO (09:59)
[2022-06-04] MEDS: Pantoprazole Sodium 40 MG Tablet PO (10:00)
[2022-06-04] MEDS: Tolterodine Tartrate 4 MG CAP.SA PO (10:00)
[2022-06-04] MEDS: Aspirin 81 MG TAB.CHEW PO (10:00)
[2022-06-04] MEDS: Clopidogrel Bisulfate 75 MG Tablet PO (10:00)
[2022-06-04] MEDS: busPIRone 15 MG TABLET PO (10:00)
[2022-06-04] MEDS: Verapamil SR 240 MG Tablet 120 MG PO (10:01)
[2022-06-04] MEDS: Topiramate 100 MG Tablet PO (10:03)
--- NOTE | 2022-06-04 13:30 | CASEMGMT ---
Addendum entered by Ondina Navarro 06/04/22 15:01: Pt's father at bedside and updated on all, voices understanding and questions answered. Pt/father voice no further questions/concerns/needs. Joe FERRELL CM Addendum entered by Ondina Navarro 06/04/22 14:15: Call to Christa pt's [facility] waiver CM, and message left per her request for notification of pt discharge. Joe FERRELL CM Original Note: Per therapy, pt did much better today and ok to go home with [facility]. Pt/father updated, voice understanding and both are agreeable to home with [facility], add PT/OT/[facility] CAR[facility]A order sent via [facility] to [facility]. Call to [facility] and per intake, pt is already active with SN, PT/OT, aide-aware to add speech. [facility] also aware that pt will d/c home today, voice understanding and voice no further questions. D/C summary to be sent via [facility] once obtained. Pt/father voice no further questions/concerns/needs. Joe FERRELL CM
--- NOTE | 2022-06-04 13:46 | DCINST_ITS ---
Discharge Instructions Diet Discharge Diet: Low fat / Low cholesterol Activity Discharge Activity: Return to Normal Activity Dressing / Incision Call your doctor if you observe: Shortness of breath, Dizziness and Chest pain Follow Up Care Test Results: Test results from this visit will be discussed in further detail at your follow- up appointment, if applicable. Discharge Plan Admission Admit Date/Time: 06/02/22 13:41 Primary Reason for Your Visit: acute stroke ruled out Attending Provider: Michele Linares Primary Care Provider: Georgie Vicente Consulting Providers: Ijeoma Pagan ; Darwin Gifford Discharge Orders/Prescriptions Prescriptions: Continued atorvastatin 10 MG tablet 80 mg PO DAILY lisinopril 10 MG tablet 10 mg PO DAILY Label Comments: TAKE 1 TABLET BY MOUTH EVERY DAY aspirin 81 MG tablet,chewable 81 mg PO DAILY@0800 verapamil 120 MG capsule,ext rel. pellets 24 hr 120 mg PO DAILY escitalopram oxalate 20 MG tablet 20 mg PO DAILY promethazine 25 MG tablet 25 mg PO Q6H PRN PRN (Reason: Nausea) Qty: 10 0RF clopidogrel [Plavix] 75 mg Tablet 75 mg PO DAILY Rx Instructions: unsure of dose verapamil 120 mg Tablet Extended Release 120 mg PO DAILY oxybutynin chloride 15 mg Tablet Extended Release 24hr 15 mg PO DAILY cetirizine [Zyrtec] 10 mg Tablet 10 mg PO DAILY isosorbide mononitrate 30 mg Tablet Extended Release 24 Hr 30 mg PO DAILY pantoprazole 40 mg Tablet,Delayed Release (Dr/Ec) 40 mg PO BID gabapentin 100 mg Capsule 100 mg PO TID buspirone 15 mg Tablet 15 mg PO BID aripiprazole [Abilify] 10 mg Tablet 10 mg PO QHS topiramate 50 mg Tablet 50 mg PO BID Linzess 145 mcg Capsule 145 mcg PO DAILY Trintellix 20 mg Tablet 20 mg PO QHS Referrals / Follow Up: Neurology, primary [Other] - In 1 Week Felicia Pendleton MD [Non-Staff] - Georgie Vicente MD [Primary Care Provider] - In 1 Week Disposition Disposition (needs filled in before D/C Order can be placed): Home Health Service
--- NOTE | 2022-06-04 13:53 | DS.PCM_ITS ---
Documented by User: Maliha Almaguer NP, MICROARRAY SPECIALIST-C 06/04/22 14:06 Providers Date of Admission: 06/02/22 Date of Discharge: 06/04/22 Primary Care Physician: Dr. Georgie Vicente MD Consultations 06/03/22 10:34 Consult: Ophthamology Routine Consulting Provider: Darwin Gifford Reason for Consult: Vision loss, stroke like symptoms EMERGENT Consult: No MD Notified: Yes Date Notified: 06/03/22 Time Notified: 08:30 Method of Notification: Verbal Reason For Visit: STROKE SYMPTOMS Diagnosis Discharge Diagnosis (1) Stroke-like symptom: Status: Acute Code(s): R29.90 - Unspecified symptoms and signs involving the nervous system Medications at Discharge Home Medications aspirin 81 mg chewable tablet 81 mg PO DAILY@0800 02/28/19 atorvastatin 10 mg tablet 80 mg PO DAILY 02/28/19 lisinopril 10 mg tablet 10 mg PO DAILY 02/28/19 verapamil 120 mg 24 hr capsule,extended release 120 mg PO DAILY 02/28/19 escitalopram oxalate 20 mg tablet 20 mg PO DAILY 04/03/20 promethazine 25 mg tablet 25 mg PO Q6H PRN PRN Nausea #10 tabs 07/29/20 aripiprazole 10 mg tablet (Abilify) 10 mg PO QHS 06/02/22 buspirone 15 mg tablet 15 mg PO BID 06/02/22 cetirizine 10 mg tablet (Zyrtec) 10 mg PO DAILY 06/02/22 clopidogrel 75 mg tablet (Plavix) 75 mg PO DAILY 06/02/22 gabapentin 100 mg capsule 100 mg PO TID 06/02/22 isosorbide mononitrate 30 mg tablet,extended release 24 hr 30 mg PO DAILY 06/02/22 linaclotide 145 mcg capsule (Linzess) 145 mcg PO DAILY 06/02/22 oxybutynin chloride 15 mg tablet,extended release 24 hr 15 mg PO DAILY 06/02/22 pantoprazole 40 mg tablet,delayed release 40 mg PO BID 06/02/22 topiramate 50 mg tablet 50 mg PO BID 06/02/22 verapamil 120 mg tablet,extended release 120 mg PO DAILY 06/02/22 vortioxetine 20 mg tablet (Trintellix) 20 mg PO QHS 06/02/22 Hospital Course Operations None Procedures 2-D Echocardiogram Summary of Care Provided Hospital Course: Patient is a 41-year-old male admitted 06/02/2022 due to left-sided numbness. 1. Neurologic symptoms-stroke ruled out. Brain CT x2 without acute stroke. Echocardiogram with EF 55%. Unable to have MRI due to multiple implantable devices. [facility] records reviewed and patient has had multiple admissions for similar complaints. Neurology visit 04/22/[address] Marcie Sarabia noted patient has had several hospitalizations including 5 admissions just in 2021. He has been seen by multiple neurologist including epilepsy and stroke specialist. He has headache and left-sided numbness at baseline per neurology. Prior stroke in 2011, he has had extensive work-up including KORI without obvious underlying etiology. Previously followed by Dr. Nieto for stroke work-up. Previous interrogation of digital hardware design engineer without A. fib. Evaluated by ophthalmology during admission due to vision changes of left eye. No pathology found on exam. Hypercoagulable panel pending however suspect this was pr eviously completed during outpatient neurology work-up. Continue aspirin, statin, Plavix. Continue home health with home therapies. Follow-up with primary neurologist in 1 week. 2. Hypertension-stable, continue verapamil, isosorbide, lisinopril. 3. Depression/anxiety-on Abilify, BuSpar, Trintellix. 4. Migraines-continue home Topamax regimen. 5. Hyperlipidemia-continue statin. 6. GERD-continue PPI. Patient seen and examined prior to discharge. Physical assessment as noted below. Patient is stable for discharge with follow up recommendations as noted above. This patient was seen by AUGIE Park under the supervision of Dr. Linares. Time spent examining patient, reviewing data and subsequent management of care: 27 minutes Physical Exam Const alert and oriented x3 HEENT normocephalic and moist oral mucous membranes Eyes PERRL, EOMs intact bilaterally and conjunctivae normal Neck no lymphadenopathy Resp normal respiratory effort and clear to auscultation bilaterally Cardio regular rate, regular rhythm and no murmurs Peripheral Pulses: pulses 2+ throughout GI normal to inspection, nondistended, normoactive bowel sounds, non-tender and non-distended Extremity normal to inspection Skin no rashes or lesions noted Lesions: no lesions Rashes: no rashes Trauma: no lacerations or abrasions Neuro CN's II-XII intact bilaterally and deep tendon reflexes 2+ bilaterally Neuro Narrative: Chronic left-sided weakness and left-sided numbness with left upper extremity contracture Psych mental status grossly normal and affect normal Weight / BMI Weight Weight: 276 lb 10.882 oz Body Mass Index (BMI) 36.5 ABG / Lab / Microbiology Data Result Diagrams: 06/04/22 06:30 06/04/22 06:30 Laboratory: Laboratory Results - last 24 hr 06/03/22 18:35: Troponin I High Sens 6 06/04/22 06:30: WBC 8.1, RBC 5.43, Hgb 15.9, Hct 48.3, MCV 89.0, MCH 29.3, MCHC 32.9, RDW Std Deviation 44.8 H, RDW Coeff of Tammy 14.0, Plt Count 201, MPV 10.3, Immature Gran % (Auto) 1.700 H, Neut % (Auto) 61.0, Lymph % (Auto) 29.7, [place] % (Auto) 5.7, Eos % (Auto) 1.0, Baso % (Auto) 0.9, Absolute Neuts (auto) 4.9, Absolute Lymphs (auto) 2.39, Nucleated RBC % 0 06/04/22 06:30: Sodium 140, Potassium 3.5, Chloride 111 H, Carbon Dioxide 25.0, Anion Gap 4 L, BUN 14, Creatinine 0.81, Estim Creat Clear Calc 134.26, Est GFR (MDRD) Af Amer 135, Est GFR (MDRD) Non-Af 111, BUN/Creatinine Ratio 17.4, Glucose 105, Calcium 8.8, Total Bilirubin 0.80, AST 24, ALT 78 H, Alkaline Phosphatase 173 H, Total Protein 6.9, Albumin 3.5, Globulin 3.4, Albumin/Globulin Ratio 1.0 Radiography Diagnostic Testing: Radiology Impression Echocardiogram 06/03/22 02:02 Interpretation Summary The study was technically difficult. Contrast injection was performed. Based upon the 2D echocardiographic and contrast enhanced images obtained there appears to be grossly normal left ventricular size, wall motion, and systolic function. The estimated ejection fraction is 55 %. Mild concentric left ventricular hypertrophy. Moderately dilated aortic root. Unable to assess diastolic dysfunction. Ordering Physician: Thu Welch Performed By: Anna Marie Morrell RCS D/C Instructions Discharge Diet: Low fat / Low cholesterol Call your doctor if you observe: Shortness of breath, Dizziness and Chest pain Meaningful Use Info Meaningful Use Diagnoses (Choose all that apply): None applicable Discharge Plan Admission Admit Date/Time: 06/02/22 13:41 Primary Reason for Your Visit: acute stroke ruled out Attending Provider: Michele Linares Primary Care Provider: Georgie Vicente Consulting Providers: Ijeoma Pagan ; Darwin Gifford Discharge Orders/Prescriptions Prescriptions: Continued atorvastatin 10 MG tablet 80 mg PO DAILY lisinopril 10 MG tablet 10 mg PO DAILY Label Comments: TAKE 1 TABLET BY MOUTH EVERY DAY aspirin 81 MG tablet,chewable 81 mg PO DAILY@0800 verapamil 120 MG capsule,ext rel. pellets 24 hr 120 mg PO DAILY escitalopram oxalate 20 MG tablet 20 mg PO DAILY promethazine 25 MG tablet 25 mg PO Q6H PRN PRN (Reason: Nausea) Qty: 10 0RF clopidogrel [Plavix] 75 mg Tablet 75 mg PO DAILY Rx Instructions: unsure of dose verapamil 120 mg Tablet Extended Release 120 mg PO DAILY oxybutynin chloride 15 mg Tablet Extended Release 24hr 15 mg PO DAILY cetirizine [Zyrtec] 10 mg Tablet 10 mg PO DAILY isosorbide mononitrate 30 mg Tablet Extended Release 24 Hr 30 mg PO DAILY pantoprazole 40 mg Tablet,Delayed Release (Dr/Ec) 40 mg PO BID gabapentin 100 mg Capsule 100 mg PO TID buspirone 15 mg Tablet 15 mg PO BID aripiprazole [Abilify] 10 mg Tablet 10 mg PO QHS topiramate 50 mg Tablet 50 mg PO BID Linzess 145 mcg Capsule 145 mcg PO DAILY Trintellix 20 mg Tablet 20 mg PO QHS Referrals / Follow Up: Neurology, primary [Other] - In 1 Week Felicia Pendleton MD [Non-Staff] - Georgie Vicente MD [Primary Care Provider] - In 1 Week Disposition Disposition (needs filled in before D/C Order can be placed): Home Health Service Documented by User: Dr. Michele Linares MD 06/04/22 15:42 Providers Date of Admission: 06/02/22 Reason For Visit: STROKE SYMPTOMS Diagnosis Discharge Diagnosis (1) Stroke-like symptom: Status: Acute Code(s): R29.90 - Unspecified symptoms and signs involving the nervous system Medications at Discharge Home Medications aspirin 81 mg chewable tablet 81 mg PO DAILY@0800 02/28/19 atorvastatin 10 mg tablet 80 mg PO DAILY 02/28/19 lisinopril 10 mg tablet 10 mg PO DAILY 02/28/19 verapamil 120 mg 24 hr capsule,extended release 120 mg PO DAILY 02/28/19 escitalopram oxalate 20 mg tablet 20 mg PO DAILY 04/03/20 promethazine 25 mg tablet 25 mg PO Q6H PRN PRN Nausea #10 tabs 07/29/20 aripiprazole 10 mg tablet (Abilify) 10 mg PO QHS 06/02/22 buspirone 15 mg tablet 15 mg PO BID 06/02/22 cetirizine 10 mg tablet (Zyrtec) 10 mg PO DAILY 06/02/22 clopidogrel 75 mg tablet (Plavix) 75 mg PO DAILY 06/02/22 gabapentin 100 mg capsule 100 mg PO TID 06/02/22 isosorbide mononitrate 30 mg tablet,extended release 24 hr 30 mg PO DAILY 05/12 12/30 linaclotide 145 mcg capsule (Linzess) 145 mcg PO DAILY 06/02/22 oxybutynin chloride 15 mg tablet,extended release 24 hr 15 mg PO DAILY 06/02/22 pantoprazole 40 mg tablet,delayed release 40 mg PO BID 06/02/22 topiramate 50 mg tablet 50 mg PO BID 06/02/22 verapamil 120 mg tablet,extended release 120 mg PO DAILY 06/02/22 vortioxetine 20 mg tablet (Trintellix) 20 mg PO QHS 06/02/22 Hospital Course Summary of Care Provided Hospital Course: Patient is a 41-year-old male admitted 06/02/2022 due to left-sided numbness. 1. Neurologic symptoms-stroke ruled out. Brain CT x2 without acute stroke. Echocardiogram with EF 55%. Unable to have MRI due to multiple implantable devices. [facility] records reviewed and patient has had multiple admissions for similar complaints. Neurology visit 04/22/[address] Marcie Sarabia noted patient has had several hospitalizations including 5 admissions just in 2021. He has been seen by multiple neurologist including epilepsy and stroke specialist. He has headache and left-sided numbness at baseline per neurology. Prior stroke in 2012, he has had extensive work-up including KORI without obvious underlying etiology. Previously followed by Dr. Nieto for stroke work-up. Previous interrogation of digital hardware design engineer without A. fib. Evaluated by ophthalmology during admission due to vision changes of left eye. No pathology found on exam. Hypercoagulable panel pending however suspect this was previously completed during outpatient neurology work-up. Continue aspirin, statin, Plavix. Continue home health with home therapies. Follow-up with primary neurologist in 1 week. 2. Hypertension-stable, continue verapamil, isosorbide, lisinopril. 3. Depression/anxiety-on Abilify, BuSpar, Trintellix. 4. Migraines-continue home Topamax regimen. 5. Hyperlipidemia-continue statin. 6. GERD-continue PPI. Patient seen and examined prior to discharge. Physical assessment as noted below. Patient is stable for discharge with follow up recommendations as noted above. This patient was seen by AUGIE Park under the supervision of Dr. Damian gerber. Time spent examining patient, reviewing data and subsequent management of care: 20 minutes This patient was seen in conjunction with Maliha HOUSTON. I have independently interviewed and examined the patient and reviewed pertinent history, examination findings, laboratory and plan of management. I have reviewed the note and agree with the documented findings with the few additional points. In brief, patient is 41-year-old gentleman with history of previous stroke in 2012 admitted for left-sided weakness and numbness.? [facility] record was reviewed as per Maliha's note above. Patient had multiple admissions and neurology visits in this year mainly. Patient had initial work-up in the ED including CT brain and CTA head and neck which were unremarkable.? On digital hardware design engineer in PCU patient rhythm is atrial sensed pacemaker rhythm at 60 bpm.? About 2 AM on 06/03/2022 patient had complete loss of vision in left eye.? Patient not candidate for tPA as per evaluation of [facility] neurologist.? Patient was also evaluated by [facility] neurologist.The impression was no obvious source of plaque/trauma but thought to be more proximal.? 06/03/2022: 1.? Concern of new stroke on baseline old? right temporal, frontal and parietal lobe ischemic stroke: Patient had hypercoagulable work-up pending.? 2D echo was done report pending.? Discussed with cardiology Dr. Nugent mild aortic root dilatation otherwise no significant valvular abnormality.? Patient was evaluated by roll handler and retinal exam normal.? No pathology found. Avionics Repair Technician impression was may be retinal artery vasospasm/nonphysiologic.? MRI could not be done as patient has pacemaker and multiple implanted devices.? Repeat CT head was done and reported no acute further change but a stable examination.? Old infarction of right temporal frontal parietal lobes.? Patient does not have urinary or fecal incontinence.? No burning micturition. 2.? Atypical chest pain, patient also had nonspecific chest pain.? Twelve-lead EKG shows paced rhythm.? Serial high-sensitivity troponins are normal.? ACS ruled out. Patient again had chest pain with radiation to back. Bilateral arm BP was done and there is no significant difference in BP and pulse. No radial femoral delay. Patient had CT angiogram chest in the past and reported no aortic dissection; reported normal in fact. 3.? Other comorbidities include hypertension, anxiety and depression and migraine: Home medication reconciliation done. I have discussed my assessment with MICROARRAY SPECIALISTMaliha and orders have been reviewed. Discharge medication reconciliation done. Discharge follow-up instructions completed. Discharge process discussed with the patient and all questions were answered to patient's satisfaction. Total joint time spent, exact 45 minutes on discharge meds reconciliation, examination, coordination of care with nurses and ancillary staff, review of imaging and blood test and discussion with the patient on follow-up instructions. I spent 25 minutes, Maliha MICROARRAY SPECIALIST spent 20 minutes. Physical Exam Narrative Seen and examined on the day of discharge. Patient does not feel anxiety, sad or depressed. He lives with his father. Both help each other. His father look over his financial matters. Physical exam General: Awake.? Alert.? Oriented x3. HEENT: Field of vision normal.? Atraumatic, PERRLA, EOMI, Normocephalic Oral: No Gingival or Mucosal Lesions/ Ulcerations Neck: Supple, No JVD, Negative Carotid Bruits Lungs:? Air entry diminished in bilateral lung bases.? No crepitation/rhonchi Cardiovascular: Regular rate, Regular Rhythm, Normal S1, Normal S2, No murmurs Abdomen: Bowel Sounds Present, Soft, Non Tender, Non-Distended : No renal angle tenderness.? No suprapubic tenderness. Extremities: No edema, Capillary Refill Less than 3 Seconds Skin: No rashes, No breakdown Musculoskeletal: No Tenderness to Palpation of Joints or Extremities Neurological: ? Left-sided upper and lower extremity weakness with contracture.? Mild amnesia.? Speech normal at baseline, no dysarthria dysphonia. Psych/Mental Status: Mild cognitive deficit probably due to stroke. ABG / Lab / Microbiology Data Result Diagrams: 06/04/22 06:30 06/04/22 06:30 Discharge Plan Admission Admit Date/Time: 06/02/22 13:41 Primary Reason for Your Visit: acute stroke ruled out Attending Provider: Michele Linares Primary Care Provider: Georgie Vicente Consulting Providers: Ijeoma Pagan ; Darwin Gifford Discharge Orders/Prescriptions Prescriptions: Continued atorvastatin 10 MG tablet 80 mg PO DAILY lisinopril 10 MG tablet 10 mg PO DAILY Label Comments: TAKE 1 TABLET BY MOUTH EVERY DAY aspirin 81 MG tablet,chewable 81 mg PO DAILY@0800 verapamil 120 MG capsule,ext rel. pellets 24 hr 120 mg PO DAILY escitalopram oxalate 20 MG tablet 20 mg PO DAILY promethazine 25 MG tablet 25 mg PO Q6H PRN PRN (Reason: Nausea) Qty: 10 0RF clopidogrel [Plavix] 75 mg Tablet 75 mg PO DAILY Rx Instructions: unsure of dose verapamil 120 mg Tablet Extended Release 120 mg PO DAILY oxybutynin chloride 15 mg Tablet Extended Release 24hr 15 mg PO DAILY cetirizine [Zyrtec] 10 mg Tablet 10 mg PO DAILY isosorbide mononitrate 30 mg Tablet Extended Release 24 Hr 30 mg PO DAILY pantoprazole 40 mg Tablet,Delayed Release (Dr/Ec) 40 mg PO BID gabapentin 100 mg Capsule 100 mg PO TID buspirone 15 mg Tablet 15 mg PO BID aripiprazole [Abilify] 10 mg Tablet 10 mg PO QHS topiramate 50 mg Tablet 50 mg PO BID Linzess 145 mcg Capsule 145 mcg PO DAILY Trintellix 20 mg Tablet 20 mg PO QHS Referrals / Follow Up: Neurology, primary [Other] - In 1 Week Felicia Pendleton MD [Non-Staff] - Georgie Vicente MD [Primary Care Provider] - In 1 Week Disposition Disposition (needs filled in before D/C Order can be placed): Home Health Service Charges/Coding Visit Charges OBSV E&M: 91949 Observation care discharge
--- NOTE | 2022-06-04 14:29 | PHA.DC.MR ---
Pharmacy Service has performed discharge medication reconciliation for this patient. No new medications at time of dc review. Medications reviewed are from previously reported home medications. Home Medications aspirin 81 mg chewable tablet 81 mg PO DAILY@0800 02/28/19 atorvastatin 10 mg tablet 80 mg PO DAILY 02/28/19 lisinopril 10 mg tablet 10 mg PO DAILY 02/28/19 escitalopram oxalate 20 mg tablet 20 mg PO DAILY 04/03/20 promethazine 25 mg tablet 25 mg PO Q6H PRN PRN Nausea #10 tabs 07/29/20 aripiprazole 10 mg tablet (Abilify) 10 mg PO QHS 06/02/22 buspirone 15 mg tablet 15 mg PO BID 06/02/22 cetirizine 10 mg tablet (Zyrtec) 10 mg PO DAILY 06/02/22 clopidogrel 75 mg tablet (Plavix) 75 mg PO DAILY 06/02/22 gabapentin 100 mg capsule 100 mg PO TID 06/02/22 isosorbide mononitrate 30 mg tablet,extended release 24 hr 30 mg PO DAILY 06/02/22 linaclotide 145 mcg capsule (Linzess) 145 mcg PO DAILY 06/02/22 oxybutynin chloride 15 mg tablet,extended release 24 hr 15 mg PO DAILY 06/02/22 pantoprazole 40 mg tablet,delayed release 40 mg PO BID 06/02/22 topiramate 50 mg tablet 50 mg PO BID 06/02/22 verapamil 120 mg tablet,extended release 120 mg PO DAILY 06/02/22 vortioxetine 20 mg tablet (Trintellix) 20 mg PO QHS 06/02/22 The patient's discharge medication list was reviewed for discrepancies and discrepancies were resolved.
[2022-06-09 14:09] LABS: Protein C Antigen 74 % (60-150); Protein C, Functional 93 % (73-180)
[2022-06-09 15:39] LABS: Anti-Cardiolipin Ab, IgG, Qn < 9 GPL U/mL (0-14); Anti-Cardiolipin Ab, IgM, Qn < 9 MPL U/mL (0-12); Anti-Thrombin 3 AG, Immunol 101 % (72-124); Antithrombin 3 Function 107 % (75-135); Beta-2-Glycoprotein I IgA <9 (0-25); Beta-2-Glycoprotein I IgG <9 (0-20); Beta-2-Glycoprotein I IgM <9 (0-32)
== END 2022-06-04 13:48 | disposition home health service (06) ==
LOC: ED 13:26 → PCU 14:04
PROVIDERS: Family Medicine; Nurse Practitioner Family; Admitting Provider Student in an Organized Health Care Education/Training Program; Emergency Provider Emergency Medicine; Visit Provider Internal Medicine
DX: H34.12 Central retinal artery occlusion, left eye (principal); G40.909 Epilepsy, unspecified, not intractable, without status epilepticus; I10 Essential (primary) hypertension; Z79.02 Long term (current) use of antithrombotics/antiplatelets; E78.5 Hyperlipidemia, unspecified; G43.909 Migraine, unspecified, not intractable, without status migrainosus; K21.9 Gastro-esophageal reflux disease without esophagitis; R53.1 Weakness; Z79.82 Long term (current) use of aspirin; Z95.0 Presence of cardiac pacemaker; R07.9 Chest pain, unspecified; F41.9 Anxiety disorder, unspecified; Z79.899 Other long term (current) drug therapy; R29.711 NIHSS score 11; H54.62 Unqualified visual loss, left eye, normal vision right eye; R29.90 Unspecified symptoms and signs involving the nervous system; R13.12 Dysphagia, oropharyngeal phase; R20.0 Anesthesia of skin; I69.391 Dysphagia following cerebral infarction; I69.328 Other speech and language deficits following cerebral infarction
CPT/HCPCS: 36415; 70450; 70496; 70498; 71045; 80048; 80053; 80061; 81240; 81241; 82962; 83036; 83735; 84443; 84484; 85025; 85300; 85301; 85302; 85303; 85610; 85730; 86146; 86147; 92507; 92522; 92526; 92610; 93005; 93306; 94002; 94660; 94762; 96365; 96375; 97162; 97166; 97530; 97535; 99218; 99285; Q9957; Q9967; A4216; C8929; G0378; J2405

== ENCOUNTER 2022-08-27 16:28 | Emergency (ER) | payer MEDICARE, MEDICAID, SELFPAY ==
[2022-08-27 16:29] VITALS: BP 155/99; PULSE 80; RESP 18; TEMP 36.7; O2SAT 96; BMI 37.5
--- NOTE | 2022-08-27 17:05 | ED.VIS.CHEST ---
HPI History of Present Illness Chief Complaint: Chest Pain Informant: patient Narrative Narrative: This is a 41-year-old male who is from [facility] who has been experiencing chest pain. He went to see his primary care doctor who set him up with a stress test in [facility]. He went and had that done today and it was negative and he was discharged. However he was complaining of bilateral chest pain and jaw pain and after he was discharged from [place] came to [facility] for his pain pump to be filled. He went to his pain management doctor and he mentioned his chest pain and jaw pain and they told him to come to emergency. He denies any shortness of breath. He states his pain is 11 out of 10. He is on Plavix for prior stroke. He is also on isosorbide. He states he has never had a heart attack and has no stents in his heart. [facility] Medical History CVA (cerebral vascular accident) Migraines Pseudophakia of both eyes Home Medications aspirin 81 mg chewable tablet 81 mg PO DAILY@0800 02/28/19 [History Last Taken 06/02/22] atorvastatin 10 mg tablet 80 mg PO DAILY 02/28/19 [History Last Taken Unknown] lisinopril 10 mg tablet 10 mg PO DAILY 02/28/19 [History Last Taken 06/02/22] verapamil 120 mg 24 hr capsule,extended release 120 mg PO DAILY 02/28/19 [History Last Taken 06/02/22] escitalopram oxalate 20 mg tablet 20 mg PO DAILY 04/03/20 [History Last Taken 06/02/22] promethazine 25 mg tablet 25 mg PO Q6H PRN PRN Nausea #10 tabs 07/29/20 [Rx Last Taken Unknown] aripiprazole 10 mg tablet (Abilify) 10 mg PO QHS 06/02/22 [History Last Taken Unknown] buspirone 15 mg tablet 15 mg PO BID 06/02/22 [History Last Taken Unknown] cetirizine 10 mg tablet (Zyrtec) 10 mg PO DAILY 06/02/22 [History Last Taken Unknown] clopidogrel 75 mg tablet (Plavix) 75 mg PO DAILY 06/02/22 [History Last Taken 06/02/22] gabapentin 100 mg capsule 100 mg PO TID 06/02/22 [History Last Taken Unknown] isosorbide mononitrate 30 mg tablet,extended release 24 hr 30 mg PO DAILY 06/02/22 [History Last Taken Unknown] linaclotide 145 mcg capsule (Linzess) 145 mcg PO DAILY 06/02/22 [History Last Taken Unknown] oxybutynin chloride 15 mg tablet,extended release 24 hr 15 mg PO DAILY 06/02/22 [History Last Taken Unknown] pantoprazole 40 mg tablet,delayed release 40 mg PO BID 06/02/22 [History Last Taken Unknown] topiramate 50 mg tablet 50 mg PO BID 06/02/22 [History Last Taken Unknown] verapamil 120 mg tablet,extended release 120 mg PO DAILY 06/02/22 [History Last Taken Unknown] vortioxetine 20 mg tablet (Trintellix) 20 mg PO QHS 06/02/22 [History Last Taken Unknown] Allergy/AdvReac Type Severity Reaction Status Date / Time lithium Allergy Swelling Verified 06/02/22 11:51 Social History Smoking Status: Never smoker ROS ROS ED Constitutional Constitutional ED: Denies chills or weight loss Eyes Eyes: Reports other Details: Jaw pain ; Denies change in vision or diplopia ENT ENT ED: Denies ear pain, rhinorrhea or sore throat Cardiovascular Cardiovascular: Reports chest pain; Denies orthopnea, palpitations or racing heartbeat Respiratory/Chest Respiratory/Chest: Denies cough, dyspnea or orthopnea Gastrointestinal Gastrointestinal: Denies abdominal pain, diarrhea, nausea or vomiting Genitourinary Genitourinary ED: Denies dysuria, hematuria or urinary frequency Musculoskeletal Musculoskeletal: Denies arthralgias or myalgias Integumentary Denies abscess or rash Neurologic Neurologic: Denies headache(s) or weakness Psychiatric Psychiatric: Denies anxiety, depression, suicidal ideation or suicidal thoughts Endocrine Endocrinology: Denies polydipsia, polyphagia or polyuria Allergic/Immunologic Allergic/Immunologic ED: Denies mouth swelling, tongue swelling or urticaria EXAM Physical Exam Narrative Exam Narrative: Patient has no tears. His pulse rate is in the 70s. He is normotensive. He does not appear in any pain whatsoever. Const Vital Signs: 08/27/22 16:29 08/27/22 17:19 08/27/22 19:55 Temperature 98.0 F Temperature Source Oral Pulse Rate 80 80 68 Respiratory Rate 18 16 18 Blood Pressure 155/99 H 135/104 H 133/96 H Blood Pressure Mean 117 114 108 Pulse Ox 96 96 97 Oxygen Delivery Method Room Air Room Air Room Air Positive well nourished and well developed General Appearance ED: well developed HEENT Reports normocephalic, head/scalp atraumatic and moist mucous membranes Eyes PERRL and EOMs intact bilaterally Neck no lymphadenopathy, supple and no JVD Resp normal respiratory effort and clear to auscultation bilaterally Cardio regular rate, regular rhythm and no murmurs GI normal to inspection, nondistended, normoactive bowel sounds and non-tender Palpation: soft Back/Spine no CVA tenderness and normal ROM Extremity normal to inspection General Extremety ED: Negative for edema General Extremity: Negative for edema Neuro oriented x3 and CN's II-XII intact bilaterally Sensorium / Orientation: alert Motor Exam: strength 5/5 throughout Psych mental status grossly normal Mood & Affect: Negative for depressed or tearful Skin no rashes or lesions noted and no wounds MDM MDM MDM Narrative Medical decision making narrative: Basic blood work was obtained and was negative. His troponins x2 are negative. Given that he passed a stress test today and 2 troponins are negative and his chest x-ray is otherwise negative I do not think this is ACS or aortic dissection or aneurysm. I do not think this is pulmonary embolism. I think the patient can be discharged home with supportive care and follow-up with his primary care doctor. The patient is in agreement with this will return if worsening or concerns Lab Data Attestation: I reviewed the patient's lab results. Labs: Laboratory Results - last 24 hr 08/27/22 08/27/22 08/27/22 17:10 17:10 19:45 WBC 7.5 RBC 5.53 Hgb 15.6 Hct 47.0 MCV 85.0 MCH 28.2 MCHC 33.2 RDW Std Deviation 38.1 RDW Coeff of Tammy 12.4 Plt Count 271 MPV 10.2 Immature Gran % (Auto) 1.300 H Neut % (Auto) 56.8 Lymph % (Auto) 32.3 [place] % (Auto) 8.0 Eos % (Auto) 0.8 Baso % (Auto) 0.8 Absolute Neuts (auto) 4.3 Absolute Lymphs (auto) 2.43 Nucleated RBC % 0 Sodium 143 Potassium 3.1 L Chloride 110 H Carbon Dioxide 25.0 Anion Gap 8 BUN 9 Creatinine 0.85 Estim Creat Clear Calc 127.94 Est GFR (MDRD) Af Amer 127 Est GFR (MDRD) Non-Af 105 BUN/Creatinine Ratio 10.6 Glucose 102 Calcium 9.4 Troponin I High Sens 7 10 Radiography Diagnostic Testing: Clinical Impression(s) from Imaging Studies Chest X-Ray 08/27/22 17:40 IMPRESSION: No consolidating pneumonia. Findings of age-indeterminate bronchitis/bronchiolitis. Electronically Signed: Joss Tiwari MD at 17:56 EST , EKG Initial EKG: Attestation: I personally reviewed and interpreted this EKG as follows: Comments: Normal sinus rhythm with a ventricular rate of 72 bpm. Discharge Plan Triage Chief Complaint: Chest Pain ED Provider: Kermit Lim Dx/Rx/DC Orders Prescriptions: No Action atorvastatin 10 MG tablet 80 mg PO DAILY lisinopril 10 MG tablet 10 mg PO DAILY Label Comments: TAKE 1 TABLET BY MOUTH EVERY DAY aspirin 81 MG tablet,chewable 81 mg PO DAILY@0800 verapamil 120 MG capsule,ext rel. pellets 24 hr 120 mg PO DAILY escitalopram oxalate 20 MG tablet 20 mg PO DAILY promethazine 25 MG tablet 25 mg PO Q6H PRN PRN (Reason: Nausea) Qty: 10 0RF clopidogrel [Plavix] 75 mg Tablet 75 mg PO DAILY Rx Instructions: unsure of dose verapamil 120 mg Tablet Extended Release 120 mg PO DAILY oxybutynin chloride 15 mg Tablet Extended Release 24hr 15 mg PO DAILY cetirizine [Zyrtec] 10 mg Tablet 10 mg PO DAILY isosorbide mononitrate 30 mg Tablet Extended Release 24 Hr 30 mg PO DAILY pantoprazole 40 mg Tablet,Delayed Release (Dr/Ec) 40 mg PO BID gabapentin 100 mg Capsule 100 mg PO TID buspirone 15 mg Tablet 15 mg PO BID aripiprazole [Abilify] 10 mg Tablet 10 mg PO QHS topiramate 50 mg Tablet 50 mg PO BID Linzess 145 mcg Capsule 145 mcg PO DAILY Trintellix 20 mg Tablet 20 mg PO QHS Primary Care Provider: Care Physician,No Primary Referrals: Georgie Vicente MD [Non-Staff] -
[2022-08-27] MEDS: Aspirin 81 MG TAB.CHEW 324 MG PO (17:15)
[2022-08-27 17:19] VITALS: BP 135/104; PULSE 80; RESP 16; O2SAT 96
[2022-08-27 17:29] LABS: Absolute Lymphocyte Count 2.43 X10^3/uL (0.83-4.51); Absolute Neutrophil Count 4.3 X10^3/uL (2.0-7.7); Basophil# 0.06 X10^3/uL; Basophil% 0.8 % (0-1); Eosinophil# 0.06 X10^3/uL; Eosinophils% 0.8 % (0-5); Hemoglobin 15.6 g/dL (13.0-16.5); Lymphocyte # 2.43 X10^3/ul (0.83-4.51); Lymphocyte % 32.3 % (19-41); Mean Corp Hgb Conc 33.2 g/dL (32-36); Mean Corpuscular Hgb 28.2 pg (27.0-32.0); Mean Platelet Vol. 10.2 fl (6.2-12.0); NRBC Flagged by Analyzer 0 % (0-5); Neutrophil # 4.28 X10^3/uL (2.7-7.7); Neutrophil % 56.8 % (47-70); Platelet Count 271 K/mm3 (150-450); RBC Distribution Width CV 12.4 % (11.6-14.6); RBC Distribution Width SD 38.1 fl (35.1-43.9); Red Blood Count 5.53 M/mm3 (4.6-6.2); White Blood Count 7.5 K/mm3 (4.4-11.0)
--- NOTE | 2022-08-27 17:40 | RAD_ITS ---
EXAM: XR CHEST, 1 VIEW CLINICAL INDICATION: chest pain TECHNIQUE: Frontal view of the chest. This report was created using [employer] report generation technology. COMPARISON: None. FINDINGS: LUNGS AND PLEURAL SPACES: No consolidation. No pleural effusion or pneumothorax. Mild central bronchial wall thickening. HEART: Unremarkable. Cardiac silhouette not enlarged. MEDIASTINUM: Central airways and mediastinal contour are unremarkable. BONES/JOINTS: Unremarkable. SOFT TISSUES: Unremarkable. TUBES, LINES AND DEVICES: Stable support devices. RAD/Chest 1 View (Portable) IMPRESSION: No consolidating pneumonia. Findings of age-indeterminate bronchitis/bronchiolitis. Electronically Signed: Joss Tiwari MD at 17:56 EST ,
[2022-08-27 17:49] LABS: Anion Gap 8 (5-15); BUN 9 mg/dL (7-18); BUN/Creat Ratio 10.6 RATIO (10-20); Calcium,Total 9.4 mg/dL (8.5-10.1); Chloride 110 mmol/L (98-107); Creatinine, Serum 0.85 mg/dL (0.70-1.30); EST Glomerular Filtration Rate 105 mL/min (>60); Est Glom Filt Rate - Afr Amer 127 mL/min (>60); Estimated Creatinine Clearance 127.94 ml/min; Glucose 102 mg/dL (74-106); Potassium 3.1 mmol/L (3.5-5.1); Sodium Level 143 mmol/L (136-145); Troponin-I HS (w/2H Reflex) 7 pg/mL (3.0-78.0)
[2022-08-27 19:27] LABS: Reflex Troponin-HS? (from REC) Y
[2022-08-27 19:55] VITALS: BP 133/96; PULSE 68; RESP 18; O2SAT 97
[2022-08-27 20:33] LABS: Troponin-I HS 10 pg/mL (3.0-78.0)
== END 2022-08-27 20:51 | disposition home or self-care (01) ==
PROVIDERS: Emergency Provider Emergency Medicine; Visit Provider Emergency Medicine
DX: R07.9 Chest pain, unspecified (principal); R68.84 Jaw pain; Z86.73 Personal history of transient ischemic attack (TIA), and cerebral infarction without residual deficits; Z79.899 Other long term (current) drug therapy
CPT/HCPCS: 71045; 80048; 84484; 85025; 93005; 99284; A4216

== ENCOUNTER 2023-03-04 12:07 | Emergency (ER) | payer MEDICARE, MEDICAID, SELFPAY ==
[2023-03-04 12:08] VITALS: BP 137/93; PULSE 98; RESP 18; TEMP 36.4; O2SAT 100
--- NOTE | 2023-03-04 12:26 | EDS_ITS ---
HPI History of Present Illness Chief Complaint: Chest Pain Informant: patient Onset/Context/Timing Onset: Today Activity at onset: sudden Timing: Continuous Quality: Positive for Tightness Location: Left Chest and - (And left arm) Worsened By: Nothing Relieved By: Nothing Associated Symptoms: Positive for Nausea, Diaphoresis, Dyspnea, Lightheadedness and Palpitations; Negative for Vomiting, Cough, Fever or Acid Reflux Narrative Narrative: Patient presents with chest pain that began today. Patient states he was at his pain management physician's office getting his baclofen pump refilled when he started having some pain in the left side of his chest. Patient states it feels like a tightness. Patient states it has been constant. Patient states it radiates down his left arm. Patient states she was evaluated for this recently at [facility] in [place]. Patient states he was admitted to the hospital there recently. Patient states he was also seen in the emergency department there yesterday for syncopal episode. Patient states he still feels lightheaded. Patient admits to some nausea but denies any vomiting. Patient admits to some diaphoresis and shortness of breath. CVD Risk Factors: Positive for Hypertension and Hypercholesterolemia; Negative for Diabetes, Family History 1' </=55 or Smoking PE Risk Factors: Negative for Recent Travel/Surgery, Recent Immobilization, Prior DVT or PE, Cancer or OCP + Smoking + >/=35 PFSH [facility] Medical History (Updated 03/04/23 @ 16:[address] Samir Penaloza, DO) CVA (cerebral vascular accident) Migraines Pseudophakia of both eyes Home Medications aspirin 81 mg chewable tablet 81 mg PO DAILY@0800 02/28/19 [History Last Taken 06/02/22] atorvastatin 10 mg tablet 80 mg PO DAILY 02/28/19 [History Last Taken Unknown] lisinopril 10 mg tablet 10 mg PO DAILY 02/28/19 [History Last Taken 06/02/22] verapamil 120 mg 24 hr capsule,extended release 120 mg PO DAILY 02/28/19 [History Last Taken 06/02/22] escitalopram oxalate 20 mg tablet 20 mg PO DAILY 04/03/20 [History Last Taken 06/02/22] promethazine 25 mg tablet 25 mg PO Q6H PRN PRN Nausea #10 tabs 07/29/20 [Rx Last Taken Unknown] aripiprazole 10 mg tablet (Abilify) 10 mg PO QHS 06/02/22 [History Last Taken Unknown] buspirone 15 mg tablet 15 mg PO BID 06/02/22 [History Last Taken Unknown] cetirizine 10 mg tablet (Zyrtec) 10 mg PO DAILY 06/02/22 [History Last Taken Unknown] clopidogrel 75 mg tablet (Plavix) 75 mg PO DAILY 06/02/22 [History Last Taken 06/02/22] gabapentin 100 mg capsule 100 mg PO TID 06/02/22 [History Last Taken Unknown] isosorbide mononitrate 30 mg tablet,extended release 24 hr 30 mg PO DAILY 06/02/22 [History Last Taken Unknown] linaclotide 145 mcg capsule (Linzess) 145 mcg PO DAILY 06/02/22 [History Last Taken Unknown] oxybutynin chloride 15 mg tablet,extended release 24 hr 15 mg PO DAILY 06/02/22 [History Last Taken Unknown] pantoprazole 40 mg tablet,delayed release 40 mg PO BID 06/02/22 [History Last Taken Unknown] topiramate 50 mg tablet 50 mg PO BID 06/02/22 [History Last Taken Unknown] verapamil 120 mg tablet,extended release 120 mg PO DAILY 06/02/22 [History Last Taken Unknown] vortioxetine 20 mg tablet (Trintellix) 20 mg PO QHS 06/02/22 [History Last Taken Unknown] Allergy/AdvReac Type Severity Reaction Status Date / Time lithium Allergy Swelling Verified 06/02/22 11:51 Surgical History Hx of cholecystectomy Hx of foot surgery S/P insertion of spinal cord stimulator Status post insertion of intrathecal baclofen pump Social History Smoking Status: Never smoker ROS ROS ED Constitutional Constitutional ED: Denies chills or fever(s) Eyes Eyes: Denies blurry vision or change in vision ENT ENT ED: Denies rhinorrhea or sore throat Cardiovascular Cardiovascular: Reports chest pain and palpitations Respiratory/Chest Respiratory/Chest: Reports dyspnea; Denies cough Gastrointestinal Gastrointestinal: Reports nausea; Denies abdominal pain or vomiting Genitourinary Genitourinary ED: Denies dysuria or hematuria Musculoskeletal Musculoskeletal: Denies back pain or neck pain Integumentary Denies abscess or rash Neurologic Neurologic: Denies headache(s) or weakness Allergic/Immunologic Allergic/Immunologic ED: Denies mouth swelling or urticaria EXAM Physical Exam Const Vital Signs: 03/04/23 12:08 03/04/23 13:17 03/04/23 13:17 Temperature 97.6 F L Temperature Source Temporal Pulse Rate 98 76 Respiratory Rate 18 17 Respiratory Effort Blood Pressure 137/93 H 108/73 Blood Pressure Mean 107 84 Pulse Ox 100 Oxygen Delivery Method Room Air Room Air 03/04/23 13:17 03/04/23 14:05 03/04/23 16:16 Temperature Temperature Source Pulse Rate 72 68 Respiratory Rate 17 18 Respiratory Effort Normal Non-Labored Blood Pressure 111/76 121/67 H Blood Pressure Mean 87 85 Pulse Ox 96 Oxygen Delivery Method Positive well nourished, well developed and obese General Appearance ED: well developed and NAD Nutritional Appearance: obese HEENT normocephalic and atraumatic Eyes PERRL and EOMs intact bilaterally Neck supple and no JVD Chest Wall palpation of chest normal Resp normal respiratory effort and clear to auscultation bilaterally Effort and Inspection: Negative for respiratory distress Cardio regular rate, regular rhythm and no murmurs GI normal to inspection, nondistended, normoactive bowel sounds, soft to palpation, non-tender and non-distended Extremity normal to inspection General Extremety ED: Negative for edema or tenderness General Extremity: Negative for edema Neuro oriented x3, CN's II-XII intact bilaterally and no sensory deficits noted Sensorium / Orientation: awake and alert Motor Exam: strength 5/5 throughout Psych mental status grossly normal Heart Score History: Slightly/Non-Suspicious ECG: Normal Age: </= 45 years Risk Factors: 1 or 2 Risk Factors Troponin: </= Normal Limit Score: 1 MDM MDM MDM Narrative Medical decision making narrative: Differential diagnosis includes cardiac dysrhythmia, cardiac ischemia, pneumonia, pneumothorax, pulmonary embolism, pericarditis, anxiety, musculoskeletal pain. EKG will be obtained to assess for cardiac dysrhythmia and cardiac ischemia. Chest x-ray will be obtained to assess for pneumonia, pneumothorax, cardiomegaly. CBC will be obtained to assess for leukocytosis and anemia. Basic metabolic profile will be obtained to assess for electrolyte abnormality and renal function. High-sensitivity troponin will be obtained to assess for cardiac ischemia. D-dimer will be obtained to assess for pulmonary embolism. Lab Data Attestation: I reviewed the patient's lab results. Lab results narrative: CBC was reviewed and was within normal limits. Basic metabolic profile was reviewed and was within the normal. D-dimer was reviewed and was less than 0.27. High-sensitivity troponin was reviewed and was normal at 6. 2-hour repeat high-sensitivity troponin was reviewed and was normal at 6. Labs: Laboratory Results - last 24 hr 03/04/23 03/04/23 03/04/23 12:55 12:55 12:55 WBC 7.6 RBC 5.30 Hgb 14.2 Hct 43.7 MCV 82.5 MCH 26.8 L MCHC 32.5 RDW Std Deviation 47.1 H RDW Coeff of Tammy 15.9 H Plt Count 221 MPV 10.1 Immature Gran % (Auto) 0.500 Neut % (Auto) 58.2 Lymph % (Auto) 31.6 [place] % (Auto) 8.1 Eos % (Auto) 0.8 Baso % (Auto) 0.8 Absolute Neuts (auto) 4.4 Absolute Lymphs (auto) 2.41 Nucleated RBC % 0 D-Dimer Quant (PE/DVT) < 0.27 L Sodium 144 Potassium 3.6 Chloride 118 H Carbon Dioxide 21.0 Anion Gap 5 BUN 14 Creatinine 0.80 Estim Creat Clear Calc 134.55 Est GFR (MDRD) Af Amer 135 Est GFR (MDRD) Non-Af 112 BUN/Creatinine Ratio 17.5 Glucose 137 H Calcium 8.4 L Troponin I High Sens 6 03/04/23 15:05 WBC RBC Hgb Hct MCV MCH MCHC RDW Std Deviation RDW Coeff of Tammy Plt Count MPV Immature Gran % (Auto) Neut % (Auto) Lymph % (Auto) [place] % (Auto) Eos % (Auto) Baso % (Auto) Absolute Neuts (auto) Absolute Lymphs (auto) Nucleated RBC % D-Dimer Quant (PE/DVT) Sodium Potassium Chloride Carbon Dioxide Anion Gap BUN Creatinine Estim Creat Clear Calc Est GFR (MDRD) Af Amer Est GFR (MDRD) Non-Af BUN/Creatinine Ratio Glucose Calcium Troponin I High Sens 6 Radiography Diagnostic Testing: Clinical Impression(s) from Imaging Studies Chest X-Ray 03/04/23 13:15 IMPRESSION: No acute cardiopulmonary process identified. Electronically Signed: Renetta Bass MD at 13:39 EDT , Portable 1 view chest x-ray was obtained. On my independent interpretation, lung bradley are clear. There is normal cardiac silhouette. Bony thorax is normal. There is no acute process noted. Radiologist also interpreted the x- ray and agrees. EKG Initial EKG: Attestation: I personally reviewed and interpreted this EKG as follows: Interpretation: Sinus Rhythm (84) and No Acute Injury Pattern Comments: EKG was obtained. On my independent interpretation, it showed a normal sinus rhythm with a rate of 84. CT interval, QRS interval, and QTc intervals were all normal. Herod was normal. There are no acute ST or T wave changes. Prior EKG tracings: available for review Prior: Unchanged (08/27/2022) Treatment and Re-Evaluation :: Patient was given aspirin here. Patient was complaining of pain in his chest. Patient was given Tylenol for this. Patient had minimal improvement after Tylenol. Patient was given a dose of morphine. Patient was advised of his findings. Patient has a HEART score of 1. Patient was advised that this is low risk for acute cardiac event. Patient was instructed to take Tylenol or ibuprofen as needed for his pain. Patient was instructed to follow-up with his primary care physician in 5 to 7 days. Patient was also instructed to follow-up with his tactical debriefer officer as scheduled. Patient understands and is agreeable with t he plan. All questions were answered. Discharge Plan Triage Chief Complaint: Chest Pain ED Provider: Samir Penaloza Dx/Rx/DC Orders Clinical Impression: Chest pain of uncertain etiology, Obesity (BMI 30-39.9) Instructions: ED Chest Pain, Uncertain Cause Prescriptions: No Action atorvastatin 10 MG tablet 80 mg PO DAILY lisinopril 10 MG tablet 10 mg PO DAILY Label Comments: TAKE 1 TABLET BY MOUTH EVERY DAY aspirin 81 MG tablet,chewable 81 mg PO DAILY@0800 verapamil 120 MG capsule,ext rel. pellets 24 hr 120 mg PO DAILY escitalopram oxalate 20 MG tablet 20 mg PO DAILY promethazine 25 MG tablet 25 mg PO Q6H PRN PRN (Reason: Nausea) Qty: 10 0RF clopidogrel [Plavix] 75 mg Tablet 75 mg PO DAILY Rx Instructions: unsure of dose verapamil 120 mg Tablet Extended Release 120 mg PO DAILY oxybutynin chloride 15 mg Tablet Extended Release 24hr 15 mg PO DAILY cetirizine [Zyrtec] 10 mg Tablet 10 mg PO DAILY isosorbide mononitrate 30 mg Tablet Extended Release 24 Hr 30 mg PO DAILY pantoprazole 40 mg Tablet,Delayed Release (Dr/Ec) 40 mg PO BID gabapentin 100 mg Capsule 100 mg PO TID buspirone 15 mg Tablet 15 mg PO BID aripiprazole [Abilify] 10 mg Tablet 10 mg PO QHS topiramate 50 mg Tablet 50 mg PO BID Linzess 145 mcg Capsule 145 mcg PO DAILY Trintellix 20 mg Tablet 20 mg PO QHS Primary Care Provider: Caryn Sanches Referrals: Caryn Sanches MD [Primary Care Provider] - 3-5 Days Care Physician,No Primary [Non-Staff] - Disposition Disposition: Home, Self Care
--- NOTE | 2023-03-04 12:36 | EKG12_ITS ---
Test Reason : Blood Pressure : / mmHG Vent. Rate : 084 BPM Atrial Rate : 084 BPM P-R Int : 152 ms QRS Dur : 110 ms QT Int : 400 ms P-R-T Axes : 047 -03 054 degrees QTc Int : 472 ms Normal sinus rhythm Normal ECG Confirmed by JENAE SILVA, CHRISTINA ([id number]), photograph editor VALENTINA ALONOZ ([id number]) on 03/05/2023 1:26:41 PM Referred By: MAYRA Confirmed By:CHRISTINA EMANUEL MD
[2023-03-04 13:06] LABS: Absolute Lymphocyte Count 2.41 X10^3/uL (0.83-4.51); Absolute Neutrophil Count 4.4 X10^3/uL (2.0-7.7); Basophil# 0.06 X10^3/uL; Basophil% 0.8 % (0-1); Eosinophil# 0.06 X10^3/uL; Eosinophils% 0.8 % (0-5); Hematocrit 43.7 % (40-54); Hemoglobin 14.2 g/dL (13.0-16.5); Lymphocyte # 2.41 X10^3/ul (0.83-4.51); Lymphocyte % 31.6 % (19-41); Mean Corp Hgb Conc 32.5 g/dL (32-36); Mean Corpuscular Hgb 26.8 pg (27.0-32.0); Mean Corpuscular Volume 82.5 fL (80-94); Mean Platelet Vol. 10.1 fl (6.2-12.0); Monocyte# 0.62 X10^3/uL; Monocyte% 8.1 % (0-10); NRBC Flagged by Analyzer 0 % (0-5); Neutrophil # 4.43 X10^3/uL (2.7-7.7); Neutrophil % 58.2 % (47-70); Platelet Count 221 K/mm3 (150-450); RBC Distribution Width CV 15.9 % (11.6-14.6); RBC Distribution Width SD 47.1 fl (35.1-43.9); White Blood Count 7.6 K/mm3 (4.4-11.0)
--- NOTE | 2023-03-04 13:15 | RAD_ITS ---
HISTORY: chest pain. TECHNIQUE: XR Chest 1 View. COMPARISON: 08/27/2022. FINDINGS: CARDIOMEDIASTINAL BORDERS: Cardiac silhouette within normal limits in size with pacemaker in place. Mediastinal contour unremarkable. LUNGS: Radiographically clear. PLEURA: No pleural effusion or pneumothorax seen. OSSEOUS STRUCTURES: Unremarkable. Thoracic spinal electrode again noted. Implanted device again seen in the left upper quadrant. RAD/Chest 1 View (Portable) IMPRESSION: No acute cardiopulmonary process identified. Electronically Signed: Renetta Bass MD at 13:39 EDT ,
[2023-03-04] MEDS: Aspirin 81 MG TAB.CHEW 324 MG PO (13:16)
[2023-03-04 13:17] VITALS: BP 108/73; PULSE 76; RESP 17; BMI 36.9
[2023-03-04 13:30] LABS: Anion Gap 5 (5-15); BUN 14 mg/dL (7-18); BUN/Creat Ratio 17.5 RATIO (10-20); Calcium,Total 8.4 mg/dL (8.5-10.1); Chloride 118 mmol/L (98-107); EST Glomerular Filtration Rate 112 mL/min (>60); Est Glom Filt Rate - Afr Amer 135 mL/min (>60); Estimated Creatinine Clearance 134.55 ml/min; Glucose 137 mg/dL (74-106); Potassium 3.6 mmol/L (3.5-5.1); Sodium Level 144 mmol/L (136-145); Troponin-I HS (w/2H Reflex) 6 pg/mL (3.0-78.0)
[2023-03-04 13:32] LABS: D-Dimer Quantitative (DVT/PE) < 0.27 FEU/ug/m (0.27-0.49)
[2023-03-04 14:05] VITALS: BP 111/76; PULSE 72; RESP 17; O2SAT 96
[2023-03-04] MEDS: Acetaminophen 500 MG Tablet 1000 MG PO (14:30)
[2023-03-04 15:14] LABS: Reflex Troponin-HS? (from REC) Y
[2023-03-04 15:39] LABS: Troponin-I HS 6 pg/mL (3.0-78.0)
[2023-03-04 16:16] VITALS: BP 121/67; PULSE 68; RESP 18
== END 2023-03-04 17:27 | disposition home or self-care (01) ==
PROVIDERS: Emergency Provider Emergency Medicine; PCP Internal Medicine; Visit Provider Emergency Medicine
DX: R07.9 Chest pain, unspecified (principal); R11.0 Nausea; R06.02 Shortness of breath; R00.2 Palpitations; E66.9 Obesity, unspecified; Z86.73 Personal history of transient ischemic attack (TIA), and cerebral infarction without residual deficits; Z79.82 Long term (current) use of aspirin; Z79.899 Other long term (current) drug therapy
CPT/HCPCS: 71045; 80048; 84484; 85025; 85379; 93005; 99285; A4216

== ENCOUNTER → 2023-03-29 | Outpatient (CLI) | payer MEDICARE, MEDICAID, SELFPAY ==
--- NOTE | 2023-03-29 10:11 | RAD_ITS ---
HISTORY: Spondylosis without myelopathy or radiculopathy, cervical region. TECHNIQUE: XR Spine Cervical 2 or 3 Views. COMPARISON: 09/06/2019. FINDINGS: VERTEBRAE: Vertebral body heights maintained. No acute fracture identified. ALIGNMENT: No significant anterior or posterior subluxation. Preservation of the cervical lordosis. INTERVERTEBRAL DISCS: Mild degenerative endplate changes with mild intervertebral disc space narrowing of C2-3, C3-4, and C4-5. SOFT TISSUES: No significant prevertebral soft tissue swelling. Cardiac pacemaker noted. RAD/Cerv Spine 2 or 3 Views IMPRESSION: No acute fracture or dislocation identified in the cervical spine. Mild degenerative change. Electronically Signed: Renetta Bass MD at 11:05 EDT ,
== END | disposition home or self-care (01) ==
PROVIDERS: PCP Internal Medicine; Referring Provider Anesthesiology Pain Medicine; Visit Provider Anesthesiology Pain Medicine
DX: M79.661 Pain in right lower leg (principal)
CPT/HCPCS: 72040

== ENCOUNTER 2023-08-07 09:19 | Emergency (ER) | payer MEDICARE, MEDICAID, SELFPAY ==
[2023-08-07 09:20] VITALS: BP 102/76; PULSE 81; RESP 18; TEMP 35.9; O2SAT 95; BMI 37.0
--- NOTE | 2023-08-07 09:44 | EDS_ITS ---
HPI History of Present Illness Chief Complaint: Lower Extremity Injury Informant: patient and parent Narrative Narrative: 42-year-old male presenting to the emergency room with left leg swelling and pain. Patient states that last evening he began to have a burning pain in his leg. He notes that he wears a foot drop brace due to prior stroke on the left leg/foot. He has become increasingly harder to put on because of swelling and is rubbing his skin. He states now he is having redness more swelling more pain and this morning had drainage on her dressing. He went to emergency room last night was started on a dose of Keflex and was advised to come to this emergency department tonight for duplex ultrasound to rule out DVT. He denies any fevers or chills. He is on Plavix. He denies being a diabetic. Recent admissions into psychiatric hospital. He notes that he has had hammertoe surgery on the left foot but has no implanted metals of the foot and ankle. He does report a spinal stimulator [facility] Medical History CVA (cerebral vascular accident) Migraines Pseudophakia of both eyes Home Medications aspirin 81 mg chewable tablet 81 mg PO DAILY@0800 02/28/19 [History Last Taken 06/02/22] atorvastatin 10 mg tablet 80 mg PO DAILY 02/28/19 [History Last Taken Unknown] lisinopril 10 mg tablet 10 mg PO DAILY 02/28/19 [History Last Taken 06/02/22] verapamil 120 mg 24 hr capsule,extended release 120 mg PO DAILY 02/28/19 [History Last Taken 06/02/22] escitalopram oxalate 20 mg tablet 20 mg PO DAILY 04/03/20 [History Last Taken 06/02/22] promethazine 25 mg tablet 25 mg PO Q6H PRN PRN Nausea #10 tabs 07/29/20 [Rx Last Taken Unknown] aripiprazole 10 mg tablet (Abilify) 10 mg PO QHS 06/02/22 [History Last Taken Unknown] buspirone 15 mg tablet 15 mg PO BID 06/02/22 [History Last Taken Unknown] cetirizine 10 mg tablet (Zyrtec) 10 mg PO DAILY 06/02/22 [History Last Taken Unknown] clopidogrel 75 mg tablet (Plavix) 75 mg PO DAILY 06/02/22 [History Last Taken 06/02/22] gabapentin 100 mg capsule 100 mg PO TID 06/02/22 [History Last Taken Unknown] isosorbide mononitrate 30 mg tablet,extended release 24 hr 30 mg PO DAILY 06/02/22 [History Last Taken Unknown] linaclotide 145 mcg capsule (Linzess) 145 mcg PO DAILY 06/02/22 [History Last Taken Unknown] oxybutynin chloride 15 mg tablet,extended release 24 hr 15 mg PO DAILY 06/02/22 [History Last Taken Unknown] pantoprazole 40 mg tablet,delayed release 40 mg PO BID 06/02/22 [History Last Taken Unknown] topiramate 50 mg tablet 50 mg PO BID 06/02/22 [History Last Taken Unknown] verapamil 120 mg tablet,extended release 120 mg PO DAILY 06/02/22 [History Last Taken Unknown] vortioxetine 20 mg tablet (Trintellix) 20 mg PO QHS 06/02/22 [History Last Taken Unknown] Allergy/AdvReac Type Severity Reaction Status Date / Time lithium Allergy Swelling Verified 08/07/23 09:20 Surgical History Hx of cholecystectomy Hx of foot surgery S/P insertion of spinal cord stimulator Status post insertion of intrathecal baclofen pump Social History Smoking Status: Never smoker ROS ROS ED Constitutional Constitutional ED: Denies chills or weight loss Eyes Eyes: Denies change in vision or diplopia ENT ENT ED: Denies ear pain, rhinorrhea or sore throat Cardiovascular Cardiovascular: Denies chest pain, orthopnea, palpitations or racing heartbeat Respiratory/Chest Respiratory/Chest: Denies cough, dyspnea or orthopnea Gastrointestinal Gastrointestinal: Denies abdominal pain, diarrhea, nausea or vomiting Genitourinary Genitourinary ED: Denies dysuria, hematuria or urinary frequency Musculoskeletal Musculoskeletal: Denies arthralgias or myalgias Integumentary Reports Abrasions, rash and other Details: Left leg swelling pain redness ; Denies abscess Neurologic Neurologic: Denies headache(s) or weakness Psychiatric Psychiatric: Denies anxiety, depression, suicidal ideation or suicidal thoughts Endocrine Endocrinology: Denies polydipsia, polyphagia or polyuria Allergic/Immunologic Allergic/Immunologic ED: Denies mouth swelling, tongue swelling or urticaria EXAM Physical Exam Const Vital Signs: 08/07/23 09:20 Temperature 96.7 F L Temperature Source Temporal Pulse Rate 81 Respiratory Rate 18 Blood Pressure 102/76 Blood Pressure Mean 84 Pulse Ox 95 Oxygen Delivery Method Room Air Positive well nourished, well developed and obese General Appearance ED: well developed Nutritional Appearance: obese HEENT Reports normocephalic, head/scalp atraumatic and moist mucous membranes Eyes PERRL and EOMs intact bilaterally Neck full ROM, no lymphadenopathy, supple and no JVD Resp normal respiratory effort and clear to auscultation bilaterally Cardio regular rate, regular rhythm and no murmurs GI normal to inspection, nondistended, normoactive bowel sounds and non-tender Palpation: soft Back/Spine no CVA tenderness and normal ROM Extremity normal to inspection Extremity Narrative: The left leg is swollen up to the level of the tibial tuberosity. There is a well demarcated area of petechial rash the outline of his brace. There are couple superficial areas of skin breakdown notably on the heel. There is no lymphangitic streaking. The calf is nontender. No palpable cords. General Extremety ED: Yes edema General Extremity: edema Neuro oriented x3 and CN's II-XII intact bilaterally Sensorium / Orientation: alert Motor Exam: strength 5/5 throughout Psych mental status grossly normal Mood & Affect: Negative for depressed or tearful Skin no rashes or lesions noted and no wounds MDM MDM MDM Narrative Medical decision making narrative: Duplex ultrasound was obtained is negative for DVT. His white count is 7.8. Lactic acid is normal at 1.8. Organ systems appear unaffected. Patient is without fever. He has had only 1 dose of an antibiotic. I gave him a dose of Ancef while we waited for the results to determine if he would need to be admitted. At this point it does not appear that he is necessitating admission. Joan see if we can apply a JOSE hose for his leg swelling. When I have him foot and ankle because he will not fit in his dropfoot brace he is also requested that his knee be wrapped. He states that would help him greatly. Patient is to continue his antibiotics that he has been previously prescribed last night Lab Data Attestation: I reviewed the patient's lab results. Labs: Laboratory Results - last 24 hr 08/07/23 10:10 WBC 7.8 RBC 5.17 Hgb 14.4 Hct 44.2 MCV 85.5 MCH 27.9 MCHC 32.6 RDW Std Deviation 47.2 H RDW Coeff of Tammy 14.9 H Plt Count 247 MPV 10.4 Immature Gran % (Auto) 1.400 H Neut % (Auto) 59.7 Lymph % (Auto) 26.3 [place] % (Auto) 10.0 Eos % (Auto) 1.4 Baso % (Auto) 1.2 H Absolute Neuts (auto) 4.7 Absolute Lymphs (auto) 2.05 Nucleated RBC % 0 PT 13.4 INR 1.0 APTT 29.1 Sodium 138 Potassium 3.7 Chloride 111 H Carbon Dioxide 24.0 Anion Gap 3 L BUN 12 Creatinine 0.77 Estim Creat Clear Calc 139.80 Est GFR (MDRD) Af Amer 140 Est GFR (MDRD) Non-Af 116 BUN/Creatinine Ratio 15.5 Glucose 160 H Lactic Acid 1.8 Calcium 8.7 Total Bilirubin 1.40 H Direct Bilirubin 0.32 H AST 17 ALT 45 Alkaline Phosphatase 126 H Total Protein 6.9 Albumin 3.3 Globulin 3.6 Discharge Plan Triage Chief Complaint: Lower Extremity Injury ED Provider: Kermit Lim Dx/Rx/DC Orders Clinical Impression: Cellulitis of left leg, Acquired foot drop Instructions: ED Cellulitis Prescriptions: No Action atorvastatin 10 MG tablet 80 mg PO DAILY lisinopril 10 MG tablet 10 mg PO DAILY Patient Comments: TAKE 1 TABLET BY MOUTH EVERY DAY aspirin 81 MG tablet,chewable 81 mg PO DAILY@0800 verapamil 120 MG capsule,ext rel. pellets 24 hr 120 mg PO DAILY escitalopram oxalate 20 MG tablet 20 mg PO DAILY promethazine 25 MG tablet 25 mg PO Q6H PRN PRN (Reason: Nausea) Qty: 10 0RF clopidogrel [Plavix] 75 mg Tablet 75 mg PO DAILY Rx Instructions: unsure of dose verapamil 120 mg Tablet Extended Release 120 mg PO DAILY oxybutynin chloride 15 mg Tablet Extended Release 24hr 15 mg PO DAILY cetirizine [Zyrtec] 10 mg Tablet 10 mg PO DAILY isosorbide mononitrate 30 mg Tablet Extended Release 24 Hr 30 mg PO DAILY pantoprazole 40 mg Tablet,Delayed Release (Dr/Ec) 40 mg PO BID gabapentin 100 mg Capsule 100 mg PO TID buspirone 15 mg Tablet 15 mg PO BID aripiprazole [Abilify] 10 mg Tablet 10 mg PO QHS topiramate 50 mg Tablet 50 mg PO BID Linzess 145 mcg Capsule 145 mcg PO DAILY Trintellix 20 mg Tablet 20 mg PO QHS Primary Care Provider: ELAINE HULL Referrals: Caryn Sanches MD [Non-Staff] - Activity Restrictions/Additional Instructions: Please pecan picker the antibiotic you are prescribed yesterday. Please follow-up with your primary care doctor in the next 2 to 3 days I would recommend elevating the leg frequently. Your leg brace will be very difficult to put on and may complicate matters. Use an Brodie wrap and please be sure to lose your quad cane. If you cannot see your primary care and follow-up early for this he may return to the emergency department for repeat examination Disposition Disposition: Home, Self Care
--- NOTE | 2023-08-07 09:48 | VDLE_ITS ---
Reason For Study: LLE Swelling Procedure LEFT This is a venous duplex using B-mode, color GSV is normal. flow and spectral Doppler. CFV is compressible, spontaneous, phasic, Exam performed portable in ED. competent, and demonstrates normal The exam was diagnostic. augmentation. A preliminary report was called and/or faxed FV is compressible, spontaneous, phasic, to Dr. Lim. competent and demonstrates normal augmentation. POP V is compressible, spontaneous, phasic, competent and demonstrates normal augmentation. T/P Trunk is compressible. PTV is compressible. LT PerV is compressible. VL/Venous Duplex US, Unilateral Interpretation Summary There is no evidence of left lower extremity deep vein thrombosis. Left great s aphenous vein appears patent and compressible segmentally. Ordering Physician: Kermit Lim Referring Physician: N/A Performed By: Yon Parra RVT
[2023-08-07] MEDS: Cefazolin 1 GM/50 ML BAG IV (10:25)
[2023-08-07 10:32] LABS: Absolute Lymphocyte Count 2.05 X10^3/uL (0.83-4.51); Absolute Neutrophil Count 4.7 X10^3/uL (2.0-7.7); Basophil# 0.09 X10^3/uL; Basophil% 1.2 % (0-1); Eosinophil# 0.11 X10^3/uL; Eosinophils% 1.4 % (0-5); Hematocrit 44.2 % (40-54); Hemoglobin 14.4 g/dL (13.0-16.5); Lymphocyte # 2.05 X10^3/ul (0.83-4.51); Lymphocyte % 26.3 % (19-41); Mean Corp Hgb Conc 32.6 g/dL (32-36); Mean Corpuscular Hgb 27.9 pg (27.0-32.0); Mean Corpuscular Volume 85.5 fL (80-94); Mean Platelet Vol. 10.4 fl (6.2-12.0); Monocyte# 0.78 X10^3/uL; NRBC Flagged by Analyzer 0 % (0-5); Neutrophil # 4.65 X10^3/uL (2.7-7.7); Neutrophil % 59.7 % (47-70); Platelet Count 247 K/mm3 (150-450); RBC Distribution Width CV 14.9 % (11.6-14.6); RBC Distribution Width SD 47.2 fl (35.1-43.9); Red Blood Count 5.17 M/mm3 (4.6-6.2); White Blood Count 7.8 K/mm3 (4.4-11.0)
[2023-08-07 10:38] LABS: Prothrombin Time (Protime)PT. 13.4 SECONDS (11.7-14.9)
[2023-08-07 10:39] LABS: Partial Thromboplast Time 29.1 Seconds (24.1-36.2)
[2023-08-07 10:47] LABS: AST(SGOT) 17 U/L (15-37); Alanine Aminotransfer ALT/SGPT 45 U/L (16-61); Albumin, Serum 3.3 g/dL (3.2-5.0); Alkaline Phosphatase 126 U/L (45-117); Anion Gap 3 (5-15); BUN 12 mg/dL (7-18); BUN/Creat Ratio 15.5 RATIO (10-20); Bilirubin, Direct 0.32 mg/dL (0.00-0.30); Calcium,Total 8.7 mg/dL (8.5-10.1); Chloride 111 mmol/L (98-107); Creatinine, Serum 0.77 mg/dL (0.70-1.30); EST Glomerular Filtration Rate 116 mL/min (>60); Est Glom Filt Rate - Afr Amer 140 mL/min (>60); Globulin 3.6 g/dL (2.2-4.2); Glucose 160 mg/dL (74-106); Potassium 3.7 mmol/L (3.5-5.1); Protein, Total 6.9 g/dL (6.4-8.2); Sodium Level 138 mmol/L (136-145)
[2023-08-07 10:50] LABS: Lactic Acid 1.8 mmol/L (0.4-1.9)
== END 2023-08-07 13:36 | disposition home or self-care (01) ==
PROVIDERS: Emergency Provider Emergency Medicine; Visit Provider Emergency Medicine
DX: L03.116 Cellulitis of left lower limb (principal); M21.372 Foot drop, left foot; I69.398 Other sequelae of cerebral infarction; Z79.02 Long term (current) use of antithrombotics/antiplatelets; Z90.49 Acquired absence of other specified parts of digestive tract; M79.89 Other specified soft tissue disorders
CPT/HCPCS: 80048; 80076; 83605; 85025; 85610; 85730; 87040; 93971; 96365; 96366; 99283; J7050; A4216

== ENCOUNTER 2023-08-08 15:02 | Emergency (ER) | payer MEDICARE, MEDICAID, SELFPAY ==
[2023-08-08 15:03] VITALS: BP 107/79; PULSE 79; RESP 16; TEMP 37.1; O2SAT 99; BMI 37.0
--- NOTE | 2023-08-08 15:24 | EDS_ITS ---
HPI History of Present Illness Chief Complaint: Cellulitis Detail of Chief Complaint: Pain, chills and redness left posterior leg Informant: patient and parent Onset/Context/Timing Onset: Today Context: Sudden Onset Timing: Continuous Quality: Patient has redness of his left leg with swelling. The swelling was noted Location: Predominantly posterior left leg Current Severity: Moderate Maximum Severity: Moderate Worsened by: Breakdown of skin from his foot drop brace Relieved by: Nothing Associated Symptoms Associated Symptoms: Chills and subjective fever Narrative Narrative: Patient is a 42-year-old male with mental illness who was recently hospitalized to a mental institution per his father. He was seen here yesterday. Note was reviewed. Patient's CBC and lactate were normal. Venous duplex study was negative. Patient does have significant swelling and understand rationale of venous duplex study. He now presents because of increased pain, redness and chills. He also had episode of nausea and vomiting after having pizza. He states he does not feel well. He is a poor informant due to cognitive impairment. He denies headache, visual, ocular auditory symptoms. There is no history rheumatic fever. Father states he had a murmur as a child. There is no history of mitral prolapse, SBE or being immune suppressed. Patient has no allergies to antibiotics. Prior similar symptoms: No Recent Illness/Hospitalization: Yes PFSH [facility] Medical History CVA (cerebral vascular accident) Migraines Pseudophakia of both eyes Home Medications aspirin 81 mg chewable tablet 81 mg PO DAILY@0800 02/28/19 [History Last Taken 06/02/22] atorvastatin 10 mg tablet 80 mg PO DAILY 02/28/19 [History Last Taken Unknown] lisinopril 10 mg tablet 10 mg PO DAILY 02/28/19 [History Last Taken 06/02/22] verapamil 120 mg 24 hr capsule,extended release 120 mg PO DAILY 02/28/19 [History Last Taken 06/02/22] escitalopram oxalate 20 mg tablet 20 mg PO DAILY 04/03/20 [History Last Taken 06/02/22] promethazine 25 mg tablet 25 mg PO Q6H PRN PRN Nausea #10 tabs 07/29/20 [Rx Last Taken Unknown] aripiprazole 10 mg tablet (Abilify) 10 mg PO QHS 06/02/22 [History Last Taken Unknown] buspirone 15 mg tablet 15 mg PO BID 06/02/22 [History Last Taken Unknown] cetirizine 10 mg tablet (Zyrtec) 10 mg PO DAILY 06/02/22 [History Last Taken Unknown] clopidogrel 75 mg tablet (Plavix) 75 mg PO DAILY 06/02/22 [History Last Taken 06/02/22] gabapentin 100 mg capsule 100 mg PO TID 06/02/22 [History Last Taken Unknown] isosorbide mononitrate 30 mg tablet,extended release 24 hr 30 mg PO DAILY 06/02/22 [History Last Taken Unknown] linaclotide 145 mcg capsule (Linzess) 145 mcg PO DAILY 06/02/22 [History Last Taken Unknown] oxybutynin chloride 15 mg tablet,extended release 24 hr 15 mg PO DAILY 06/02/22 [History Last Taken Unknown] pantoprazole 40 mg tablet,delayed release 40 mg PO BID 06/02/22 [History Last Taken Unknown] topiramate 50 mg tablet 50 mg PO BID 06/02/22 [History Last Taken Unknown] verapamil 120 mg tablet,extended release 120 mg PO DAILY 06/02/22 [History Last Taken Unknown] vortioxetine 20 mg tablet (Trintellix) 20 mg PO QHS 06/02/22 [History Last Taken Unknown] cephalexin 500 mg capsule 500 mg PO Q6 #28 CAPSULES 08/08/23 [Rx Last Taken Unknown] Allergy/AdvReac Type Severity Reaction Status Date / Time lithium Allergy Swelling Verified 08/08/23 15:03 Surgical History Hx of cholecystectomy Hx of foot surgery S/P insertion of spinal cord stimulator Status post insertion of intrathecal baclofen pump Social History (Updated 08/08/23 @ 15:[address] Simone Ghosh MD) Smoking Status: Never smoker alcohol intake: never substance use type: does not use ROS ROS ED Constitutional Constitutional ED: Reports chills, fever(s) and subjective; Denies sweats or weight loss Eyes Eyes: Denies blurry vision, change in vision or diplopia ENT ENT ED: Denies ear pain or rhinorrhea Cardiovascular Cardiovascular: Denies chest pain, orthopnea or palpitations Respiratory/Chest Respiratory/Chest: Denies cough, dyspnea, dyspnea on exertion or orthopnea Gastrointestinal Gastrointestinal: Reports nausea and vomiting; Denies abdominal pain Genitourinary Genitourinary ED: Denies dysuria, hematuria or urinary frequency Musculoskeletal Musculoskeletal: Denies arthralgias or myalgias Integumentary Reports Abrasions and rash Neurologic Neurologic: Denies headache(s) Psychiatric Psychiatric: Denies anxiety or depression Hematologic/Lymphatic Hematologic/Lymphatic: Reports systems reviewed and no addt'l complaints, except as documented EXAM Physical Exam Const Vital Signs: 08/08/23 15:03 Temperature 98.7 F Temperature Source Temporal Pulse Rate 79 Respiratory Rate 16 Blood Pressure 107/79 Blood Pressure Mean 88 Pulse Ox 99 Positive well nourished, well developed, obese and unkempt Constitutional Narrative: Patient does have urine on his sweatpants. General Appearance ED: unkempt, well developed, NAD and pallor; Negative for cyanotic or diaphoretic Nutritional Appearance: obese HEENT Reports moist mucous membranes HEENT Narrative: Head is atraumatic and normocephalic. Ears are normal. Nares are patent. Po sterior pharynx is normal. Eyes PERRL and EOMs intact bilaterally General Eye ED: Negative for pale conjunctiva or scleral icterus Neck no lymphadenopathy, supple and no JVD Chest Wall inspection of chest normal and palpation of chest normal Resp normal respiratory effort and clear to auscultation bilaterally Cardio regular rate, regular rhythm, S1 normal heart sound, S2 normal heart sound and no murmurs GI normal to inspection, nondistended, normoactive bowel sounds, non-tender, non- distended and no masses Extremity Extremity Narrative: There is swelling of the left leg. 10 is asymmetric due to his foot drop brace. Patient has area of excoriation posterior mid to distal calf with surrounding erythema. There is warmth to the area. There is questionable induration versus areas of excoriation and abrasion from the brace. Patient complains of pain in the popliteal fossa. There is no palpable pulsatile mass. There is no obvious lymphadenopathy. He has no tenderness in the inguinal area and unable to appreciate any inguinal lymph adenopathy. General Extremety ED: Yes edema General Extremity: edema Neuro CN's II-XII intact bilaterally and no sensory deficits noted Neuro Narrative: Patient does have foot drop left. This is a chronic issue. Sensorium / Orientation: alert Psych Psych Narrative: Affect is flat. Appearance: unkempt Mood & Affect: depressed Skin skin turgor normal Skin Narrative: Previously described under the extremity portion of the medical record General Skin Exam: elasticity normal and pallor; Negative for jaundice MDM MDM MDM Narrative Medical decision making narrative: Patient has consistent with cellulitis posterior left leg. Will obtain CBC, comprehensive metabolic panel lactate to assess for endorgan dysfunction. If there is no significant change compared to yesterday's results patient is a candidate for outpatient oral antibiotic treatment versus IV therapy requiring hospitalization. History & Record Review Discussion w/independent historian: Patient and Family Additional record(s) reviewed:: Prior ED visit and Prior labs Lab Data Attestation: I reviewed the patient's lab results. Lab results narrative: CBC is unremarkable. White count is normal with a normal child. Comprehensive metabolic panel reveals no evidence of endorgan dysfunction. Lactate is normal. Patient is a candidate for outpatient therapy with oral antibiotics. Will treat with cephalexin 500 mg 4 times daily. He received his first dose in the emergency department. Labs: Laboratory Results - last 24 hr 08/08/23 15:30 WBC 8.1 RBC 5.04 Hgb 13.9 Hct 43.0 MCV 85.3 MCH 27.6 MCHC 32.3 RDW Std Deviation 47.0 H RDW Coeff of Tammy 15.2 H Plt Count 253 MPV 10.4 Immature Gran % (Auto) 2.800 H Neut % (Auto) 56.5 Lymph % (Auto) 29.6 [place] % (Auto) 8.3 Eos % (Auto) 1.7 Baso % (Auto) 1.1 H Absolute Neuts (auto) 4.6 Absolute Lymphs (auto) 2.40 Nucleated RBC % 0 Sodium 140 Potassium 3.9 Chloride 110 H Carbon Dioxide 26.0 Anion Gap 4 L BUN 12 Creatinine 0.81 Estim Creat Clear Calc 132.89 Est GFR (MDRD) Af Amer 133 Est GFR (MDRD) Non-Af 110 BUN/Creatinine Ratio 14.8 Glucose 232 H Lactic Acid 1.6 Calcium 8.5 Total Bilirubin 0.80 AST 18 ALT 39 Alkaline Phosphatase 123 H Total Protein 6.4 Albumin 3.2 Globulin 3.2 Albumin/Globulin Ratio 1.0 Treatment and Re-Evaluation :: Patient was instructed not to wear his brace since it is rubbing against his skin and is in all likelihood the nidus for this infection. Discharge Plan Triage Chief Complaint: Cellulitis ED Provider: Simone Ghosh Dx/Rx/DC Orders Clinical Impression: Cellulitis of left leg, Acquired foot drop, History of gastroesophageal reflux (GERD), History of psychiatric disorder Instructions: ED Cellulitis Prescriptions: New cephalexin [cephalexin] 500 mg capsule 500 mg PO Q6 Qty: 28 0RF No Action atorvastatin 10 MG tablet 80 mg PO DAILY lisinopril 10 MG tablet 10 mg PO DAILY Patient Comments: TAKE 1 TABLET BY MOUTH EVERY DAY aspirin 81 MG tablet,chewable 81 mg PO DAILY@0800 verapamil 120 MG capsule,ext rel. pellets 24 hr 120 mg PO DAILY escitalopram oxalate 20 MG tablet 20 mg PO DAILY promethazine 25 MG tablet 25 mg PO Q6H PRN PRN (Reason: Nausea) Qty: 10 0RF clopidogrel [Plavix] 75 mg Tablet 75 mg PO DAILY Rx Instructions: unsure of dose verapamil 120 mg Tablet Extended Release 120 mg PO DAILY oxybutynin chloride 15 mg Tablet Extended Release 24hr 15 mg PO DAILY cetirizine [Zyrtec] 10 mg Tablet 10 mg PO DAILY isosorbide mononitrate 30 mg Tablet Extended Release 24 Hr 30 mg PO DAILY pantoprazole 40 mg Tablet,Delayed Release (Dr/Ec) 40 mg PO BID gabapentin 100 mg Capsule 100 mg PO TID buspirone 15 mg Tablet 15 mg PO BID aripiprazole [Abilify] 10 mg Tablet 10 mg PO QHS topiramate 50 mg Tablet 50 mg PO BID Linzess 145 mcg Capsule 145 mcg PO DAILY Trintellix 20 mg Tablet 20 mg PO QHS Primary Care Provider: ELAINE HULL Referrals: ELAINE HULL [Other] - 2 Days for wound check Activity Restrictions/Additional Instructions: 1. Take antibiotics until gone 2. If you develop temperature greater than 100, have a red streak going towards your groin or drainage from the wound return to the emergency department Disposition Disposition: Home, Self Care
[2023-08-08 15:42] LABS: Absolute Neutrophil Count 4.6 X10^3/uL (2.0-7.7); Basophil# 0.09 X10^3/uL; Basophil% 1.1 % (0-1); Eosinophil# 0.14 X10^3/uL; Eosinophils% 1.7 % (0-5); Hemoglobin 13.9 g/dL (13.0-16.5); Lymphocyte % 29.6 % (19-41); Mean Corp Hgb Conc 32.3 g/dL (32-36); Mean Corpuscular Hgb 27.6 pg (27.0-32.0); Mean Corpuscular Volume 85.3 fL (80-94); Mean Platelet Vol. 10.4 fl (6.2-12.0); Monocyte# 0.67 X10^3/uL; Monocyte% 8.3 % (0-10); NRBC Flagged by Analyzer 0 % (0-5); Neutrophil # 4.57 X10^3/uL (2.7-7.7); Neutrophil % 56.5 % (47-70); Platelet Count 253 K/mm3 (150-450); RBC Distribution Width CV 15.2 % (11.6-14.6); Red Blood Count 5.04 M/mm3 (4.6-6.2); White Blood Count 8.1 K/mm3 (4.4-11.0)
[2023-08-08 15:58] LABS: AST(SGOT) 18 U/L (15-37); Alanine Aminotransfer ALT/SGPT 39 U/L (16-61); Albumin, Serum 3.2 g/dL (3.2-5.0); Alkaline Phosphatase 123 U/L (45-117); Anion Gap 4 (5-15); BUN 12 mg/dL (7-18); BUN/Creat Ratio 14.8 RATIO (10-20); Calcium,Total 8.5 mg/dL (8.5-10.1); Chloride 110 mmol/L (98-107); Creatinine, Serum 0.81 mg/dL (0.70-1.30); EST Glomerular Filtration Rate 110 mL/min (>60); Est Glom Filt Rate - Afr Amer 133 mL/min (>60); Estimated Creatinine Clearance 132.89 ml/min; Globulin 3.2 g/dL (2.2-4.2); Glucose 232 mg/dL (74-106); Potassium 3.9 mmol/L (3.5-5.1); Protein, Total 6.4 g/dL (6.4-8.2); Sodium Level 140 mmol/L (136-145)
[2023-08-08 16:05] LABS: Lactic Acid 1.6 mmol/L (0.4-1.9)
[2023-08-08] MEDS: Cephalexin 250 MG Capsule 500 MG PO (16:25)
== END 2023-08-08 16:41 | disposition home or self-care (01) ==
PROVIDERS: Emergency Provider Emergency Medicine; Visit Provider Emergency Medicine
DX: L03.116 Cellulitis of left lower limb (principal); M21.372 Foot drop, left foot; K21.9 Gastro-esophageal reflux disease without esophagitis; F99 Mental disorder, not otherwise specified; Z86.73 Personal history of transient ischemic attack (TIA), and cerebral infarction without residual deficits; Z90.49 Acquired absence of other specified parts of digestive tract
CPT/HCPCS: 80053; 83605; 85025; 99283; A4216